=== PATIENT | female | born 1965 | race American Indian/Alaskan Native ===

== ENCOUNTER 2025-03-02 20:13 | Emergency (ER) | payer MEDICARE, SELFPAY ==
[2025-03-02 20:14] VITALS: BMI 35.7
[2025-03-02 20:33] VITALS: BP 116/73; PULSE 97; RESP 20; TEMP 38.1; O2SAT 95
--- NOTE | 2025-03-02 20:56 | EDRME_ITS ---
Rapid Medical Screening Exam [facility] Arrival date/time: 03/02/25 20:13 59F with history of DM and recent nec fasc admission presents to ED with several days of N/V and fevers/chills after she ate something. Patient denies URI symptoms. Patient wants Phenergan shot. Chief Complaint: Nausea/Vomiting/Diarrhea Vital signs: Vital Signs Temperature 100.5 F H 03/02/25 20:33 Pulse Rate 97 03/02/25 20:33 Respiratory Rate 20 03/02/25 20:33 Blood Pressure 116/73 03/02/25 20:33 Pulse Oximetry (%) 95 03/02/25 20:33 Oxygen Delivery Method Room Air 03/02/25 20:33
[2025-03-02 21:24] LABS: Lactate (Lactic Acid) 1.4 mMol/L (0.4-2.0)
[2025-03-02 21:33] LABS: Basophils # (Auto) 0.1 Thou/mm3 (0.0-0.2); Basophils % (Auto) 1 % (0-2.5); Eosinophils # (Auto) 0.5 Thou/mm3 (0.0-0.5); Eosinophils % (Auto) 4 % (0-10); Hematocrit 46.6 % (36.0-46.0); Hemoglobin 15.4 g/dL (12.0-16.0); Immature Granulocytes % (Auto) 2 % (0-0); Immature Granulocytes Auto 0.19 Thou/mm3 (0.00-0.00); Lymphocytes # (Auto) 0.9 Thou/mm3 (1.0-4.8); Lymphocytes % (Auto) 7 % (10-50); Mean Corpuscular Hemoglobin 26.1 pg (25.0-35.0); Mean Corpuscular Volume 79 fL (80-100); Monocytes # (Auto) 0.9 Thou/mm3 (0.0-0.8); Monocytes % (Auto) 7 % (0-12); Neutrophils # (Auto) 10.5 Thou/mm3 (1.8-7.7); Neutrophils % (Auto) 81 % (37-80); Nucleated Red Blood Cell % 0 /100 WBC (0); Platelet Count 369 Thou/mm3 (140-440); RDW Standard Deviation 54.5 fL (36.4-46.3)
[2025-03-02 21:44] LABS: Collection Type, Urine Clean Catch
[2025-03-02 22:00] LABS: Alanine Aminotransferase 7 U/L (10-49); Albumin, Serum 4.2 gm/dL (3.4-4.8); Albumin/Globulin Ratio 1.2 (1.2-2.2); Alkaline Phosphatase 113 U/L (46-116); Anion Gap 10 (7-16); Aspartate Amino Transferase 13 U/L (0-34); BUN/Creatinine Ratio 7 Ratio (12-20); Bilirubin,Total 1.1 mg/dL (0.3-1.2); Blood Urea Nitrogen 8 mg/dL (9-23); Calcium 9.1 mg/dL (8.3-10.6); Calcium (Corrected) 9.1 mg/dL (8.5-10.1); Chloride 103 mMol/L (98-107); Creatinine (Component) 1.1 mg/dL (0.6-1.3); Estimated Creatinine Clearance 68.7 mL/min (>60); Globulin 3.6 gm/dL (2.3-3.5); Glucose 191 mg/dL (74-106); Lipase 25 U/L (12-53); Osmolality,Calculated 275 (275-295); Potassium 3.4 mMol/L (3.4-5.1); Procalcitonin 0.13 ng/ml (0.0-0.49); Sodium 136 mMol/L (136-145); Total Protein 7.8 gm/dL (5.7-8.2); eGFR 57 See Note
[2025-03-02 22:06] LABS: Bacteria,Urine 4+; Bilirubin,Urine Negative (Negative); Blood,Urine Trace (Negative); Clarity,Urine Turbid (Clear/Hazy); Color,Urine Yellow (Lt Yel-Yel); Glucose, Urine Negative (Negative); Hyaline Casts,Urine < 1 /hpf (0-1); Ketones,Urine 1+ (Negative); Leukocyte Esterase,Urine Positive (Negative); Nitrite,Urine Positive (Negative); Protein,Urine Trace (Neg - Trace); RBC,Urine 9 /hpf (0-3); Specific Gravity,Urine 1.018 (1.001-1.035); Squamous Epithelial Cell,Urine 6 /hpf (0-5); Urobilinogen,Urine Negative mg/dL (0.0-1.0); WBC,Urine 273 /hpf (0-5)
[2025-03-02] MEDS: PROMETHAZINE INJ 25 MG/ML VIAL 12.5 MG IM (22:18)
[2025-03-02 22:21] VITALS: TEMP 38.1
[2025-03-02] MEDS: ACETAMINOPHEN 500 MG TABLET 1000 MG PO (22:21)
[2025-03-02 23:44] VITALS: BP 112/78; PULSE 86; RESP 18; TEMP 36.9; O2SAT 95
--- NOTE | 2025-03-02 23:48 | PD.EDNV ---
Nausea/Vomit./Diarrhea-RME/HPI General Chief complaint: Nausea/Vomiting/Diarrhea Stated complaint: VOMITING Arrival date/time: 03/02/25 20:13 RME / HPI RME / HPI Narrative: 03/02/25 20:13 59F with history of DM and recent nec fasc admission presents to ED with several days of N/V and fevers/chills after she ate something. Patient denies URI symptoms. Patient wants Phenergan shot. --------- Dr. Dang's Main ED Evaluation: 59yo with a history of DM presents to the ED for a chief complaint of nausea x today. Patient states she ate some jello yesterday, reporting she has since had N/V. Patient reports associated subjective fever. She requested a Phenergan shot upon arrival and now reports her symptoms have subsided. Patient denies any abdominal pain, chest pain, UTI symptoms, back pain, rashes, dysuria or any other associated symptoms. Denies any sick contacts. No known allergies. Related Data Previous Rx's ?Medication ?Instructions ?Recorded lancets 26 gauge #100 ea 11/26/23 naproxen 500 mg tablet,delayed 500 mg PO Q12H PRN pain/spasm #10 08/13/24 release (EC-Naprosyn) tabs cephalexin 500 mg capsule 500 mg PO TID #21 caps 03/02/25 Allergies Allergy/AdvReac Type Severity Reaction Status Date / Time No Known Allergies Allergy Verified 11/23/21 11:25 Review of Systems Review of Systems Systems Reviewed: All systems reviewed, normal except as documented Past Medical History Past Medical History NEUROLOGIC: Negative Neurological Disorders or Seizures CARDIAC: Negative Cardiac Disorders or Congestive Heart Failure RESPIRATORY: Negative Chronic Obstructive Pulmonary Disease (COPD) or Asthma GASTROINTESTINAL: Negative Gastrointestinal Disorders GENITOURINARY: Negative Genitourinary Disorders or Renal Disease MUSCULOSKELETAL: Positive Musculoskeletal Disorders ENDOCRINE: Positive Diabetes Mellitus Type 2; Negative Endocrine Disorders or Diabetes Mellitus Type 1 HEMATOLOGIC: Negative Blood Disorders or Sickle Cell Disease PSYCHO/SOCIAL: Positive Bipolar Disorder, Anxiety and Post Traumatic Stress Disorder OTHER HISTORY: Negative Blood Transfusions, Blood Transfusion Reaction or Anesthesia Reactions Surgical History SURGICAL: Positive Tonsillectomy and Section Social History SMOKING STATUS: Never smoker ED Exam Narrative Physical exam: General: Non-toxic, well appearing, in no acute distress, and appears stated age and well developed and well nourished. Vital signs: Normal. Head: Normocephalic and atraumatic. Eyes: Aproptotic, extraocular movements intact. Nose: Nares without evidence of rhinorrhea. Neck: Supple without menigismus without lympadenopathy. Heart: Regular rate and rhythm without murmur, gallops, or rubs. Lungs: Clear to auscultation without wheezing, rales, or rhonchi. Abdomen: Soft, non distended. No tenderness. Normal bowel sounds. Negative Storey sign and no McBurney?s point tenderness. No guarding, rebound, or rovsing. Back: No costovertebral angle tenderness. Neurological: Alert and oriented to person, place, time. Gait normal. Extremities: no cyanosis or edema. Skin: no rashes, ecchymosis, or lesions. Course Quality Measures none Orders Category Date Time Status Bedside COVID-19 Antigen Test NOW Care 03/02/25 20:43 Active Bedside Influenza A&B Antigen Test NOW Care 03/02/25 20:43 Completed CBC Stat Lab 03/02/25 21:08 Completed CMP [Comprehensive Metabolic Panel] Stat Lab 03/02/25 21:08 Completed Lactate (Lactic Acid) Stat Lab 03/02/25 21:08 Completed Lipase Stat Lab 03/02/25 21:08 Completed Procalcitonin Stat Lab 03/02/25 21:08 Completed UA [Urinalysis] Stat Lab 03/02/25 21:30 Completed Acetaminophen Tab [Tylenol ES Tab] Med 03/02/25 20:56 Discontinued 1,000 mg PO X1 ONE Promethazine Inj [Phenergan Inj] Med 03/02/25 20:56 Discontinued 12.5 mg IM X1 ONE cephALEXin [Keflex] Med 03/02/25 23:47 Discontinued 500 mg PO X1 ONE Vital Signs Vital signs: Vital Signs Temperature 100.5 F H 03/02/25 20:33 Pulse Rate 97 03/02/25 20:33 Respiratory Rate 20 03/02/25 20:33 Blood Pressure 116/73 03/02/25 20:33 Pulse Oximetry (%) 95 03/02/25 20:33 Oxygen Delivery Method Room Air 03/02/25 20:33 Nausea/Vomiting/Diarrhea MDM Narrative MDM Narrative:: Scribe Attestation: 03/02/25 - I, Queenie Rusty, am scribing for and in the presence of Dr. Dang. Patient states she feels significantly better after receiving the Phenergan shot. Labs show the patient has a UTI. Patient is stable to be discharged home on Cephalexin. Patient data External records reviewed:: [facility] previous records (Per chart review, patient was seen here on 08/13/24 for UTI.) Clinical information provided by:: patient Social determinants that could affect healthcare access:: none Patient has the following chronic illnesses:: DM How is presenting disease/condition affected by chronic disease/condition?: uneffected by Evaluation data The following diagnostics were reviewed and interpreted by me:: lab results Lab and/or radiology exams considered but not ordered:: none Interpretation Summary: Bedside Influenza is negative, WBC count is elevated at 13.0, Glucose is 191, Lipase is normal, Lactic Acid is normal, Procalcitonin is normal, UA is positive for a UTI, according to my interpretation. Medications / Prescriptions Medications / Prescriptions considered but not ordered:: none Medication administrations:: Medication Administration History Discontinued Medications Acetaminophen (Acetaminophen 500 Mg Tablet) 1,000 mg PO X1 ONE Stop: 03/02/25 20:57 Last Admin: 03/02/25 22:21 Dose: 1,000 mg Documented By: Cephalexin HCl (Cephalexin 250 Mg Capsule) 500 mg PO X1 ONE Stop: 03/02/25 23:48 Last Admin: 03/02/25 23:56 Dose: 500 mg Documented By: EF Promethazine HCl (Promethazine Inj 25 Mg/Ml Vial) 12.5 mg IM X1 ONE; Protocol Stop: 03/02/25 20:57 Last Admin: 03/02/25 22:18 Dose: 12.5 mg Documented By: see above Consultations Consultation(s) initiated? (list below): No Diagnosis Nausea Differential Diagnosis: other (UTI, pyelonephritis, viral syndrome) Most likely diagnosis given after review of the tests above:: see clinical impression below Admission Indicated Admission indicated?: not indicated Admission Request Was there a request for admission?: No Disposition Plan Disposition Plan: Discharge Discharge Attestation Discharge Attestation: The patient and all family members were given an opportunity to ask questions and understood the discharge instructions. Discharge instructions specifically effects, indications for sooner follow up or return to the emergency department, and the expected course of current diagnosis. Patient condition: Stable Discharge Plan Plan Patient Disposition: HOME (Self Care) Patient condition on transfer: Stable Prescriptions/Referrals Prescriptions/Med Rec: New cephalexin 500 mg capsule 500 mg PO TID Qty: 21 0RF No Action naproxen [EC-Naprosyn] 500 mg tablet,delayed release (DR/EC) 500 mg PO Q12H PRN (Reason: pain/spasm) Qty: 10 0RF (DME) lancets 26 gauge misc See Rx Instructions .Route Qty: 100 0RF Rx Instructions: As directed Referrals: No Primary/Family,Physician [Primary Care Provider] - In 1 week Problem List Clinical Impression: UTI (urinary tract infection), Nausea Patient/Caregiver Discharge Instructions Education Materials: ED CYSTITIS Female Adult, ED Vomiting (Adult) Additional Instructions: You can take [id number] Tylenol 650 mg 3 times a day for the next 1 to 2 days for temperature greater than 101. Please take the antibiotics as prescribed since you are having urinary tract infection. Stay hydrated with Pedialyte and Gatorade. Otherwise return to the emergency department if you are having more symptoms, any back pain, fever not improved after Tylenol, you cannot eat or drink, or any other concerns. You will need to follow-up with your primary care next 48 hours to get results of the urine culture. Print Language: Macedonian
[2025-03-02] MEDS: cephALEXin 250 MG CAPSULE 500 MG PO (23:56)
== END 2025-03-03 00:12 | disposition home or self-care (01) ==
PROVIDERS: Physician Assistant; Emergency Provider Emergency Medicine
DX: N39.0 Urinary tract infection, site not specified (principal); R11.2 Nausea with vomiting, unspecified; E11.9 Type 2 diabetes mellitus without complications
CPT/HCPCS: 36415; 80053; 81001; 83605; 83690; 84145; 85025; 87400; 87811; 96372; 99283; J2550; A9270

== ENCOUNTER 2025-03-19 10:59 | Emergency (ER) | payer MEDICARE, SELFPAY ==
[2025-03-19 11:45] VITALS: BP 123/80; PULSE 91; RESP 17; TEMP 36.8; O2SAT 97; BMI 33.6
--- NOTE | 2025-03-19 11:51 | XR_ITS ---
Examination: Foot, right, 3 views Technique: AP, oblique, lateral views foot, 3 views Date and time of exam: March 19, 2025 1214 hrs. Indications: Right foot swelling and pain beginning 2 days ago. Findings: Soft tissue swelling second digit Severe osteopenia Cortical bone destruction involving distal phalanx second digit No opaque foreign body Impression: Osteomyelitis distal phalanx second digit, consider elective MRI foot without contrast follow-up
[2025-03-19 12:18] LABS: Basophils # (Auto) 0.1 Thou/mm3 (0.0-0.2); Basophils % (Auto) 1 % (0-2.5); Eosinophils # (Auto) 0.2 Thou/mm3 (0.0-0.5); Eosinophils % (Auto) 2 % (0-10); Hemoglobin 15.1 g/dL (12.0-16.0); Immature Granulocytes % (Auto) 1 % (0-0); Immature Granulocytes Auto 0.15 Thou/mm3 (0.00-0.00); Lymphocytes # (Auto) 1.8 Thou/mm3 (1.0-4.8); Lymphocytes % (Auto) 14 % (10-50); Mean Corpuscular HGB Conc 33.6 g/dl (31.0-37.0); Mean Corpuscular Hemoglobin 26.7 pg (25.0-35.0); Mean Corpuscular Volume 80 fL (80-100); Monocytes # (Auto) 0.8 Thou/mm3 (0.0-0.8); Monocytes % (Auto) 6 % (0-12); Neutrophils % (Auto) 76 % (37-80); Nucleated Red Blood Cell % 0 /100 WBC (0); Platelet Count 445 Thou/mm3 (140-440); RDW Standard Deviation 57.2 fL (36.4-46.3); Red Blood Count 5.65 Miln/mm3 (4.00-5.20); White Blood Count 13.2 Thou/mm3 (3.6-11.0)
[2025-03-19 12:43] LABS: Alanine Aminotransferase 8 U/L (10-49); Albumin, Serum 4.3 gm/dL (3.4-4.8); Albumin/Globulin Ratio 0.9 (1.2-2.2); Alkaline Phosphatase 116 U/L (46-116); Anion Gap 10 (7-16); Aspartate Amino Transferase 15 U/L (0-34); BUN/Creatinine Ratio 10 Ratio (12-20); Bilirubin,Total 0.9 mg/dL (0.3-1.2); Blood Urea Nitrogen 10 mg/dL (9-23); C-Reactive Protein 4.6 mg/dL (0.0-0.9); Calcium 9.4 mg/dL (8.3-10.6); Calcium (Corrected) 9.4 mg/dL (8.5-10.1); Carbon Dioxide 25.5 mMol/L (20.0-31.0); Chloride 103 mMol/L (98-107); Estimated Creatinine Clearance 75.6 mL/min (>60); Globulin 4.7 gm/dL (2.3-3.5); Glucose 207 mg/dL (74-106); Osmolality,Calculated 280 (275-295); Potassium 3.9 mMol/L (3.4-5.1); Sodium 138 mMol/L (136-145); eGFR > 60 See Note
--- NOTE | 2025-03-19 15:38 | PD.EDEXREM ---
ED Extremity Problem RME/HPI General Chief complaint: Extremity Problem,Nontraumatic Stated complaint: RIGHT FOOT/LEG SWOLLEN X 5 DAYS Time Seen by Provider: 03/19/25 11:11 Arrival date/time: 03/19/25 10:59 RME / HPI RME / HPI Narrative: 59-year-old female patient with significant history of diabetes mellitus, came in for evaluation regarding right 2nd and 3rd toe chronic wound. Patient has been having worsening swelling and discoloration to the tip of the toes has been ongoing for several days getting worse for the last 5 days. Patient also complained that patient been having pain to the foot especially with ambulation for several months now. Patient denies any fever denies any other complaints. No medication was taken prior to arrival. Related Data Previous Rx's ?Medication ?Instructions ?Recorded lancets 26 gauge #100 ea 11/26/23 naproxen 500 mg tablet,delayed 500 mg PO Q12H PRN pain/spasm #10 08/13/24 release (EC-Naprosyn) tabs cephalexin 500 mg capsule 500 mg PO TID #21 caps 03/02/25 ibuprofen 800 mg tablet 800 mg PO TID PRN pain #30 tabs 03/19/25 levofloxacin 750 mg tablet 750 mg PO Q24H 10 days #10 tabs 03/19/25 pentoxifylline 400 mg 400 mg PO TID #30 tabs 03/19/25 tablet,extended release Allergies Allergy/AdvReac Type Severity Reaction Status Date / Time No Known Allergies Allergy Verified 03/19/25 11:02 Review of Systems Review of Systems Narrative Review of Systems: Review of system reviewed and within normal limits except mentioned in HPI ED Exam Narrative Physical exam: VITAL SIGNS: Reviewed. GENERAL APPEARANCE: Alert and interactive, follows commands, no acute distress, HEAD AND FACE: Non-traumatic. ENT: PERRL, pink conjunctivitis, eyelid no trauma, Mucous membrane moist. NECK: Supple, nontender, no nuchal rigidity. CHEST: No tenderness, no crepitus, no paradoxical movement, no retractions. LUNGS: Clear, well ventilated, symmetric, no rales, no wheezing, no ronchi, no stridor, good breath sounds bilaterally. HEART: Regular rate, regular rhythm, no murmur, no gallops. ABDOMEN: Soft, positive bowel sounds, nondistended, no guarding, nontender, no rebound, no masses, RECTAL: Deferred. GENITAL: Deferred. NEUROLOGICAL: Gross motor function intact sensory function intact, Appropriate for age. MUSCULOSKELETAL: low back nontender, full range of motion. EXTREMITIES: Dry gangrene noted on the right 2nd and 3rd toe with mild swelling, and no pus drainage noted, dorsalis pedis and posterior tibialis pulses nonpalpable. Full range of motion. Chronic dry ulcer noted also on the left great toe SKIN: Color pink, dry, no rash, no lacerations, no abrasions, no contusions. LYMPHATICS: Deferred. Course Quality Measures none Orders Category Date Time Status XR foot comp RT min 3V Stat Exams 03/19/25 11:51 Completed Blood Culture (Lab) Stat Lab 03/19/25 12:01 Received CBC Stat Lab 03/19/25 12:06 Completed CRP [C-Reactive Protein] Stat Lab 03/19/25 12:06 Completed Comprehensive Metabolic Panel Stat Lab 03/19/25 12:06 Completed Ketorolac Inj [Toradol Inj] Med 03/19/25 15:37 Discontinued 30 mg IM X1 ONE Levofloxacin [Levaquin] Med 03/19/25 15:37 Discontinued 750 mg PO X1 ONE Vital Signs Vital signs: Vital Signs Temperature 98.2 F 03/19/25 11:45 Pulse Rate 91 03/19/25 11:45 Respiratory Rate 17 03/19/25 11:45 Blood Pressure 123/80 03/19/25 11:45 Pulse Oximetry (%) 97 03/19/25 11:45 Oxygen Delivery Method Room Air 03/19/25 11:45 Extremity Problem MDM Narrative MDM Narrative:: 59-year-old female patient with significant history of diabetes mellitus, came in for evaluation regarding right 2nd and 3rd toe chronic wound. Patient has been having worsening swelling and discoloration to the tip of the toes has been ongoing for several days getting worse for the last 5 days. Patient also complained that patient been having pain to the foot especially with ambulation for several months now. Patient denies any fever denies any other complaints. No medication was taken prior to arrival. Patient's workup showed slight leukocytosis of 13.2 x-ray of the foot showed osteomyelitis distal phalanx second toe. Patient C-reactive protein was also noted to be slightly elevated 4.6. Me and Dr. Bernard examined the patient, who recommends that patient need to be seen by a vascular surgeon and software maintenance engineer. Patient symptoms is chronic and secondary to ischemic changes. Patient needs vascular surgery and podiatry evaluation as outpatient. Currently patient is afebrile. Patient was advised to closely monitor the progression of her toe dry gangrene and return to emergency room for worsening of symptoms. Was advised to follow-up with PCP in the morning and for referral to vascular specialist and podiatry. Patient data External records reviewed:: None Clinical information provided by:: patient Social determinants that could affect healthcare access:: none Patient has the following chronic illnesses:: Diabetes mellitus How is presenting disease/condition affected by chronic disease/condition?: exacerbated by Evaluation data The following diagnostics were reviewed and interpreted by me:: lab results and radiology exam(s) Lab and/or radiology exams considered but not ordered:: None Interpretation Summary: See results MDM none Medications / Prescriptions Medications or Prescriptions considered but not ordered:: None Medication administrations:: Medication Administration History Discontinued Medications Ketorolac Tromethamine (Ketorolac Inj 60 Mg/2 Ml Vial) 30 mg IM X1 ONE Stop: 03/19/25 15:38 Last Admin: 03/19/25 16:33 Dose: 30 mg Documented By: Levofloxacin (Levofloxacin 250 Mg Tablet) 750 mg PO X1 ONE Stop: 03/19/25 15:38 Last Admin: 03/19/25 16:31 Dose: 750 mg Documented By: Patient received Toradol IM and Levaquin p.o. Consultations Consultation(s) initiated? (list below): No Diagnosis Extremity Problem Differential Diagnosis: cellulitis and other (Diabetic toe infection, diabetic toe gangrene, peripheral arterial disease) Most likely diagnosis given after review of the tests above:: Diabetic toe infection diabetic toe gangrene peripheral artery disease Admission Indicated Admission indicated?: not indicated Admission Request Was there a request for admission?: No Disposition Plan Disposition Plan: Discharge Discharge Attestation Discharge Attestation: The patient was given an opportunity to ask questions and understood the discharge instructions. Discharge instructions specifically effects, indications for sooner follow up or return to the emergency department, and the expected course of current diagnosis. Patient condition: Stable Discharge Plan Plan Patient Disposition: HOME (Self Care) Discharge Disposition comment: Stable Prescriptions/Referrals Prescriptions/Med Rec: New levofloxacin 750 mg tablet 750 mg PO Q24H 10 Days Qty: 10 0RF pentoxifylline 400 mg tablet extended release 400 mg PO TID Qty: 30 0RF Rx Instructions: must administer with a meal/food ibuprofen 800 mg tablet 800 mg PO TID PRN (Reason: pain) Qty: 30 0RF No Action naproxen [EC-Naprosyn] 500 mg tablet,delayed release (DR/EC) 500 mg PO Q12H PRN (Reason: pain/spasm) Qty: 10 0RF cephalexin 500 mg capsule 500 mg PO TID Qty: 21 0RF (DME) lancets 26 gauge misc See Rx Instructions .Route Qty: 100 0RF Rx Instructions: As directed Referrals: Syd Ireland PA-C [Primary Care Provider] - In 1 week Problem List Clinical Impression: Diabetic infection of right foot, Ischemic ulcer diabetic foot Patient/Caregiver Discharge Instructions Discharge Activity: activity as tolerated Education Materials: ED Wound Check (Infection) Additional Instructions: Thank you for the opportunity for serving you today. You are stable for discharged . You are advised to: Follow-up with your PCP in 1 to 2 days, and ask your PCP to refer you to a vascular surgeon and podiatry Return to ED for worsening of symptoms, fever, worsening infection of the foot Elevate your foot bilateral as needed Increase oral fluids Take medication as prescribed Print Language: Welsh Stand Alone Forms: [employer] Award Info., Patient Portal Info Letter
[2025-03-19] MEDS: LEVOFLOXACIN 250 MG TABLET 750 MG PO (16:31)
[2025-03-19] MEDS: KETOROLAC INJ 60 MG/2 ML VIAL 30 MG IM (16:33)
== END 2025-03-19 16:42 | disposition home or self-care (01) ==
PROVIDERS: Nurse Practitioner Family; Emergency Provider Emergency Medicine; PCP Physician Assistant
DX: E11.621 Type 2 diabetes mellitus with foot ulcer (principal); D72.829 Elevated white blood cell count, unspecified; M86.8X7 Other osteomyelitis, ankle and foot; E11.69 Type 2 diabetes mellitus with other specified complication; E11.52 Type 2 diabetes mellitus with diabetic peripheral angiopathy with gangrene; I96 Gangrene, not elsewhere classified
CPT/HCPCS: 36415; 73630; 80053; 85025; 86140; 87040; 96372; 99283; J1885; A9270

== ENCOUNTER 2025-03-26 22:21 | Emergency (ER) | payer MEDICARE, SELFPAY ==
[2025-03-26 22:21] VITALS: BMI 34.0
[2025-03-26 23:12] VITALS: BP 132/82; PULSE 85; RESP 18; TEMP 36.9; O2SAT 96
--- NOTE | 2025-03-26 23:38 | XR_ITS ---
Examination: CTA abdominal aorta iliofemoral runoff. 2-D sagittal coronal reconstructions. 3-D reconstructions, vascular Date and time: March 27, 2025 0018 hours Comparison November 20, 2023 INDICATIONS: Abdominal pain and bilateral leg swelling today Technique: Multiple CTA images of the abdominal aorta iliofemoral runoff arterial vessels, 2.0 mm slice thickness, post intravenous administration 100 cc Isovue 370 2-D sagittal coronal reconstructions. 3-D reconstructions, vascular 3-D postprocessing, including vascular maximum intensity projection images, 3-D volume rendering Low dose protocols were performed. One or more of the following dose reduction techniques were used; automated exposure control, adjustment of the mA and/or KV according to patient size, use of iterative reconstruction technique. Findings: No focal liver or splenic lesion Absent gallbladder No pancreatic or adrenal mass Calcification 14 mm posterior margin right kidney No hydronephrosis No bowel obstruction or pericecal inflammatory change Abdominal aortic calcification no aneurysmal dilatation Common iliac and external iliac common femoral arteries intact Calcifications of the superficial femoral arteries bilaterally but no occlusions or high-grade stenoses Popliteal arteries and trifurcation vessels fill to the ankle bilaterally Moderate right knee effusion IMPRESSION: No significant obstructive arterial disease Moderate right knee effusion, septic arthritis would be included in the differential.
[2025-03-27 00:20] LABS: Basophils # (Auto) 0.1 Thou/mm3 (0.0-0.2); Basophils % (Auto) 1 % (0-2.5); Eosinophils # (Auto) 0.6 Thou/mm3 (0.0-0.5); Eosinophils % (Auto) 7 % (0-10); Hematocrit 44.7 % (36.0-46.0); Hemoglobin 14.7 g/dL (12.0-16.0); Immature Granulocytes % (Auto) 1 % (0-0); Immature Granulocytes Auto 0.05 Thou/mm3 (0.00-0.00); Lymphocytes # (Auto) 2.5 Thou/mm3 (1.0-4.8); Lymphocytes % (Auto) 26 % (10-50); Mean Corpuscular HGB Conc 32.9 g/dl (31.0-37.0); Mean Corpuscular Hemoglobin 26.9 pg (25.0-35.0); Mean Corpuscular Volume 82 fL (80-100); Monocytes # (Auto) 0.7 Thou/mm3 (0.0-0.8); Monocytes % (Auto) 8 % (0-12); Neutrophils # (Auto) 5.7 Thou/mm3 (1.8-7.7); Neutrophils % (Auto) 59 % (37-80); Nucleated Red Blood Cell % 0 /100 WBC (0); Platelet Count 357 Thou/mm3 (140-440); RDW Standard Deviation 58.9 fL (36.4-46.3); Red Blood Count 5.47 Miln/mm3 (4.00-5.20); White Blood Count 9.6 Thou/mm3 (3.6-11.0)
--- NOTE | 2025-03-27 01:05 | PC.NURSE ---
ASSUMED CARE OF PATIENT, PT ALERT/ORIENTED AND IN NO ACUTE DISTRESS, PT STATES THAT SHE WAS BIT BY A SNAKE 2 DAYS AGO AND HAS INCREASED PAIN AND SWELLING TO HER LRG. PT STATES THAT SHE HAS OTHER WOUNDS ON HER LEGS FROM POOR PERFUSION, PT WAITING TO GO TO CT, AND SEE ER ME FOR REVIEW, WILL CONTINUE WITH PLAN OF CARE
[2025-03-27 01:06] LABS: Sed Rate (ESR) 77 mm/hr (0-30)
--- NOTE | 2025-03-27 01:12 | PD.EDRME ---
Rapid Medical Screening Exam RME Arrival date/time: 03/26/25 22:21 Chief Complaint: Extremity Problem,Nontraumatic Time Seen by Provider: 03/26/25 23:24 Vital signs: Vital Signs Temperature 98.5 F 03/26/25 23:12 Pulse Rate 85 03/26/25 23:12 Respiratory Rate 18 03/26/25 23:12 Blood Pressure 132/82 H 03/26/25 23:12 Pulse Oximetry (%) 96 03/26/25 23:12 Oxygen Delivery Method Room Air 03/26/25 23:12 Vital signs reviewed by provider: Yes RME Narrative: 59-year-old female presents to the ED with a complaint of right foot pain and swelling. She believes she was bitten by a snake. She states she was in her kitchen, wearing socks, and noticed her foot hurting with a stinging sensation. She did not see a snake. She was seen here 2 weeks ago and diagnosed with a vascular issue to her right lower extremity. She has open wounds noted to her right great toe and right second toe with swelling and erythema. I have greeted and performed a focused initial assessment of this patient. A comprehensive ED assessment and evaluation of the patient, analysis of all test results, and completion of the medical decision making process will be conducted by additional ED providers.
[2025-03-27 01:14] LABS: Alanine Aminotransferase < 7 U/L (10-49); Albumin, Serum 4.2 gm/dL (3.4-4.8); Alkaline Phosphatase 103 U/L (46-116); Anion Gap 10 (7-16); Aspartate Amino Transferase 12 U/L (0-34); BUN/Creatinine Ratio 16 Ratio (12-20); Bilirubin,Total 0.3 mg/dL (0.3-1.2); Blood Urea Nitrogen 19 mg/dL (9-23); C-Reactive Protein < 0.5 mg/dL (0.0-0.9); Calcium 9.3 mg/dL (8.3-10.6); Calcium (Corrected) 9.3 mg/dL (8.5-10.1); Carbon Dioxide 25.5 mMol/L (20.0-31.0); Chloride 107 mMol/L (98-107); Creatinine (Component) 1.2 mg/dL (0.6-1.3); Estimated Creatinine Clearance 63.3 mL/min (>60); Globulin 4.4 gm/dL (2.3-3.5); Glucose 164 mg/dL (74-106); Osmolality,Calculated 289 (275-295); Sodium 142 mMol/L (136-145); Total Protein 8.6 gm/dL (5.7-8.2); eGFR 52 See Note
--- NOTE | 2025-03-27 01:20 | PC.NURSE ---
PT ALSO NOTED TO HAVE DIABETIC WOUNDS ON RIGHT FOOT, FIRST AND SECOND TOE. BACKSIDE OF BIG TOE NECROTIC, TOP OF 2 TOE OPEN WOUND WITH REDNESS AND SWELLING
[2025-03-27 01:21] VITALS: BP 130/87; PULSE 72; RESP 16; TEMP 37; O2SAT 99
[2025-03-27 03:29] VITALS: BP 140/91; PULSE 75; RESP 18; TEMP 36.9; O2SAT 96
--- NOTE | 2025-03-27 03:57 | PRELIM_ITS ---
CT angiogram of the abdomen and pelvis with bilateral lower extremities with intravenous contrast (axial sections with sagittal and coronal reformats) March 27, 2025 AT 0018 hours Clinical History: RLE Vascular compromise. Comparison: CT of March 27, 2025. Findings: The abdominal aorta demonstrates mild atheromatous calcification without evidence of dissection or aneurysm. The celiac, superior mesenteric, inferior mesenteric and bilateral renal arteries are patent to the extent visualized. The common iliac, external iliac and internal iliac arteries are patent bilaterally. The common femoral, superficial femoral, profunda femoral and popliteal arteries are normal in course and caliber. The anterior tibial, posterior tibial, peroneal and dorsalis pedis arteries are patent bilaterally. The liver, spleen, pancreas, adrenals and kidneys are unremarkable. S/p cholecystectomy. No biliary ductal dilatation. Diverticulosis of the colon. The uterus and ovaries are within normal limits. No evidence of bowel obstruction. No evidence of appendicitis. There is no significant mesenteric or retroperitoneal adenopathy. The urinary bladder is unremarkable. There is no free fluid, free air or abscess. Small complex right knee joint effusion. Moderate osteoarthritic changes of the right knee joint. Postsurgical changes in the right femur. Left García's cyst measuring 4.7 x 3.2 cm. Impression: 1. No evidence of vascular occlusion or significant stenosis. 2. Small complex right knee joint effusion. Further evaluation to assess for septic arthritis is recommended. Consider correlation with MRI. 3. Left García's cyst. Report Electronically Signed By: Hira Talley 03/27/2025 3:56:54 AM [EST]
--- NOTE | 2025-03-27 06:28 | PD.EDADULT ---
ED General RME/HPI General Chief complaint: Extremity Problem,Nontraumatic Stated complaint: RIGHT FOOT SWOLLEN Time Seen by Provider: 03/26/25 23:24 Arrival date/time: 03/26/25 22:21 Limitations: no limitations RME / HPI RME / HPI narrative: 59-year-old female presents to the ED with a complaint of right foot pain and swelling. She believes she was bitten by a snake. She states she was in her kitchen, wearing socks, and noticed her foot hurting with a stinging sensation. She did not see a snake. She was seen here 2 weeks ago and diagnosed with a vascular issue to her right lower extremity. She has open wounds noted to her right great toe and right second toe with swelling and erythema. I have greeted and performed a focused initial assessment of this patient. A comprehensive ED assessment and evaluation of the patient, analysis of all test results, and completion of the medical decision making process will be conducted by additional ED providers. DR. CLARK MAIN ED EVALUATION: 59 year old female presents to the Emergency Department with complaint of right 1st and 2nd toes pain and swelling. She states she got bit by a snake at home, but did not see the snake. She has chronic ulcerations of the right 1st and 2nd toes, associated cellulitis of both right 1st and 2nd toes. No evidence of a snake bite. Related Data Previous Rx's ?Medication ?Instructions ?Recorded lancets 26 gauge #100 ea 11/26/23 naproxen 500 mg tablet,delayed 500 mg PO Q12H PRN pain/spasm #10 08/13/24 release (EC-Naprosyn) tabs cephalexin 500 mg capsule 500 mg PO TID #21 caps 03/02/25 ibuprofen 800 mg tablet 800 mg PO TID PRN pain #30 tabs 03/19/25 levofloxacin 750 mg tablet 750 mg PO Q24H 10 days #10 tabs 03/19/25 pentoxifylline 400 mg 400 mg PO TID #30 tabs 03/19/25 tablet,extended release sulfamethoxazole 800 1 tab PO BID right second toe 03/27/25 mg-trimethoprim 160 mg tablet infection #20 tabs (Bactrim DS) Allergies Allergy/AdvReac Type Severity Reaction Status Date / Time No Known Allergies Allergy Verified 03/19/25 11:02 Review of Systems Review of Systems Systems Reviewed: All systems reviewed, normal except as documented Past Medical History Past Medical History MUSCULOSKELETAL: Positive Musculoskeletal Disorders ENDOCRINE: Positive Diabetes Mellitus Type 2 (lantus, humalog) PSYCHO/SOCIAL: Positive Bipolar Disorder, Anxiety and Post Traumatic Stress Disorder Surgical History SURGICAL: Positive Tonsillectomy and Section Social History SMOKING STATUS: Former smoker SUBSTANCE USE: does not use ALCOHOL: Never ED Exam General Limitations: Present no limitations General appearance: Present alert and in no apparent distress Head Head exam: Present atraumatic, normocephalic and normal inspection Eye Eye exam: Present normal appearance, PERRL and EOMI ENT ENT exam: Present normal exam, normal oropharynx and mucous membranes moist Neck Neck exam: Present normal inspection, full ROM and trachea midline Chest Chest inspection: Present normal inspection and symmetric chest wall rise Respiratory Respiratory exam: Present normal lung sounds bilaterally Cardiovascular Cardiovascular exam: Present regular rate, normal rhythm and normal heart sounds Abdominal Exam Abdominal exam: Present soft and normal bowel sounds Extremities Exam Extremities exam: Present normal inspection and full ROM Expanded Lower Extremity Exam Top foot image:  1. Chronic ulcerations of the right 1st toe with associated cellulitis and gangrene on the tip the right great toe. No evidence of a snake bite. 2. Chronic ulcerations of the right 2nd toe with associated cellulitis and erythema. No evidence of a snake bite. Back Exam Back exam: Present normal inspection and full ROM Neurological Exam Neurological exam: Present alert, oriented X3 and CN II-XII intact Psychiatric Psychiatric exam: Present normal affect and normal mood Skin Skin exam: Present warm, dry, intact and normal color Course Quality Measures none Orders Category Date Time Status CT Screening NOW Care 03/26/25 23:[address] Screening X1 Care 03/26/25 23:38 Active IV [Insert IV] NOW Care 03/26/25 23:[address] angio abd ilio fem runoff Stat Exams 03/26/25 23:38 Completed Blood Culture (Lab) Stat Lab 03/27/25 02:48 Received CBC Stat Lab 03/26/25 00:03 Completed CMP [Comprehensive Metabolic Panel] Stat Lab 03/26/25 00:03 Completed CRP [C-Reactive Protein] Stat Lab 03/26/25 00:03 Completed ESR [Sed Rate (ESR)] Stat Lab 03/26/25 00:03 Completed Lactic Acid [Lactate (Lactic Acid)] Stat Lab 03/27/25 02:48 Completed Vital Signs Vital signs: Vital Signs Temperature 98.5 F 03/26/25 23:12 Pulse Rate 85 03/26/25 23:12 Respiratory Rate 18 03/26/25 23:12 Blood Pressure 132/82 H 03/26/25 23:12 Pulse Oximetry (%) 96 03/26/25 23:12 Oxygen Delivery Method Room Air 03/26/25 23:12 Discharge Plan Plan Patient Disposition: HOME (Self Care) Patient condition on transfer: Stable Prescriptions/Referrals Prescriptions/Med Rec: New sulfamethoxazole-trimethoprim [Bactrim DS] 800-160 mg tablet 1 tab PO BID MDD 2 Qty: 20 0RF No Action naproxen [EC-Naprosyn] 500 mg tablet,delayed release (DR/EC) 500 mg PO Q12H PRN (Reason: pain/spasm) Qty: 10 0RF cephalexin 500 mg capsule 500 mg PO TID Qty: 21 0RF (DME) lancets 26 gauge misc See Rx Instructions .Route Qty: 100 0RF Rx Instructions: As directed levofloxacin 750 mg tablet 750 mg PO Q24H 10 Days Qty: 10 0RF pentoxifylline 400 mg tablet extended release 400 mg PO TID Qty: 30 0RF Rx Instructions: must administer with a meal/food ibuprofen 800 mg tablet 800 mg PO TID PRN (Reason: pain) Qty: 30 0RF Referrals: Nate Best [Physician] - In 1 week Syd Hyde PA-C [Primary Care Provider] - In 1 week Problem List Clinical Impression: Chronic ulcer of right great toe, Chronic ulcer of toe of right foot Patient/Caregiver Discharge Instructions Education Materials: Wound Care, ED Wound Care Additional Instructions: Follow up with the wound care. Continue taking Levaquin and take Bactrim also starting today. Elevate the right leg and bed rest. Consider lukewarm water soak bath for the right foot. Print Language: Upper Sorbian Stand Alone Forms: [employer] Award Info., Patient Portal Info Letter MDM Narrative [facility] hospital course: I, Rose Romano, am scribing for and in the presence of Dr. Clark. Patient has chronic ulcerations of the right 1st and 2nd toes, associated cellulitis of both right 1st and 2nd toes. No evidence of a snake bite. Follow up with the wound care as directed and with PCP in 2 days. Continue taking Levaquin and take Bactrim also starting today. Elevate the right leg and bed rest. Consider lukewarm water soak bath for the right foot. Clinical Information Provided by patient Medical Records Reviewed [facility] Meds/Rx Considered, not Ordered None Labs/Rad/Tests considered, not Ordered None Chronic Illness/Social Conditions Add or document further as needed: Diabetes, Bipolar Disorder, anxiety and a section. EKG EKG not done Lab Interpretation Labs: interpreted by ia Lab(s) interpretation(s): no acute findings Imaging Radiology reports / interpretation(s): Procedure(s): CT angio abd ilio fem runoff Accession Number(s): [id number] cc: Luis Loya MD; Yazmin Torres PA-C; SYD HYDE Examination: CTA abdominal aorta iliofemoral runoff. 2-D sagittal coronal reconstructions. 3-D reconstructions, vascular Date and time: March 27, 2025 0018 hours Comparison November 20, 2023 INDICATIONS: Abdominal pain and bilateral leg swelling today Technique: Multiple CTA images of the abdominal aorta iliofemoral runoff arterial vessels, 2.0 mm slice thickness, post intravenous administration 100 cc Isovue 370 2-D sagittal coronal reconstructions. 3-D reconstructions, vascular 3-D postprocessing, including vascular maximum intensity projection images, 3-D volume rendering Low dose protocols were performed. One or more of the following dose reduction techniques were used; automated exposure control, adjustment of the mA and/or KV according to patient size, use of iterative reconstruction technique. Findings: No focal liver or splenic lesion Absent gallbladder No pancreatic or adrenal mass Calcification 14 mm posterior margin right kidney No hydronephrosis No bowel obstruction or pericecal inflammatory change Abdominal aortic calcification no aneurysmal dilatation Common iliac and external iliac common femoral arteries intact Calcifications of the superficial femoral arteries bilaterally but no occlusions or high-grade stenoses Popliteal arteries and trifurcation vessels fill to the ankle bilaterally Moderate right knee effusion IMPRESSION: No significant obstructive arterial disease Moderate right knee effusion, septic arthritis would be included in the differential. Dictated By: Luis Loya MD Medication Administration(s) none Diagnosis Differential diagnosis: cellulitis, abscess, sepsis Dispositon Disposition: Discharge Home
[2025-03-27 06:53] VITALS: BP 110/79; PULSE 70; RESP 16; O2SAT 95
[2025-03-27 07:38] VITALS: BP 131/77; PULSE 65; RESP 17; TEMP 36.6; O2SAT 96
[2025-03-27 08:09] VITALS: BP 131/77; PULSE 65; O2SAT 96
== END 2025-03-27 08:10 | disposition home or self-care (01) ==
PROVIDERS: Physician Assistant; Emergency Provider Emergency Medicine; PCP Physician Assistant
DX: E11.621 Type 2 diabetes mellitus with foot ulcer (principal); L97.519 Non-pressure chronic ulcer of other part of right foot with unspecified severity; M25.461 Effusion, right knee; F31.9 Bipolar disorder, unspecified; F41.9 Anxiety disorder, unspecified; M71.22 Synovial cyst of popliteal space [Baker], left knee; R10.9 Unspecified abdominal pain
CPT/HCPCS: 36415; 75635; 80053; 83605; 85025; 85652; 86140; 87040; 99285; A4649; Q9967

== ENCOUNTER 2025-04-28 10:54 | Inpatient (IN) | payer MEDICARE, SELFPAY ==
[2025-04-28 11:22] VITALS: BP 134/80; PULSE 88; RESP 18; TEMP 37.2; O2SAT 98; BMI 33.1
--- NOTE | 2025-04-28 11:42 | EDNOTE_ITS ---
Lower Extremity Injury RME/HPI General Chief Complaint: Ankle/Foot Injury Stated Complaint: Right toe infection X 1 week Time Seen by Provider: 04/28/25 11:21 Arrival date/time: 04/28/25 10:54 Limitations: no limitations RME / HPI RME / HPI Narrative: 59-year-old female with past medical history of poorly controlled diabetes presents for evaluation of chronic right toe ulcer. Patient reports worsening swelling and purulent discharge from right great toe with spreading erythema to her midfoot. Patient was recently seen in the ED for similar concerns and treated with outpatient oral antibiotics, which she states she completed. Patient denies fever, chills, chest pain, nausea, vomiting, neck pain. She endorses right knee pain which she says describes as chronic in nature. Patient states that she has been compliant with her insulin at home. Related Data Previous Rx's ?Medication ?Instructions ?Recorded lancets 26 gauge #100 ea 11/26/23 naproxen 500 mg tablet,delayed 500 mg PO Q12H PRN pain /spasm #10 08/13/24 release (EC-Naprosyn) tabs cephalexin 500 mg capsule 500 mg PO TID #21 caps 03/02 ibuprofen 800 mg tablet 800 mg PO TID PRN pain #30 t abs 03/19/25 pentoxifylline 400 mg 400 mg PO TID #30 tabs 03/19 tablet,extended release sulfamethoxazole 800 1 tab PO BID right second to e 03/27/25 mg-trimethoprim 160 mg tablet infection #20 tabs (Bactrim DS) Allergies Allergy/AdvReac Type Severity Reaction Status Date / Time No Known Allergies Allergy Verified 04/28/25 11:00 Review of Systems Constitutional Constitutional: Denies chills, Denies excessive sweating, Denies fever(s) and Denies headache(s) Eyes Eyes: Denies blind spots and Denies blurry vision ENT Ears, Nose, Mouth, and Throat: Denies headache(s) and Denies neck pain Cardiovascular Cardiovascular: Denies chest pain, Denies dyspnea and Denies edema Respiratory Respiratory: Denies cough, Denies dyspnea, Denies hemoptysis and Denies wheezing Gastrointestinal Gastrointestinal: Denies abdominal pain, Denies nausea and Denies vomiting Genitourinary Genitourinary: Denies dysuria Musculoskeletal Musculoskeletal: Reports abnormal gait, Reports arthralgias (Right great toe.), Denies joint swelling, Denies neck pain, Denies numbness, Denies stiffness and Denies tingling Integumentary/Breasts Skin/Breast: Reports nail changes (Detached toenail right great toe.), Reports erythema, Reports non-healing lesions and Reports skin ulcer (Erythematous ulcer dorsal right great toe with purulent discharge.) Neurologic Neurologic: Reports abnormal gait, Denies confusion, Denies headache(s), Denies numbness and Denies tingling Psychiatric Psychiatric: Denies confusion Endocrine Endocrine: Denies excessive sweating Allergic/Immunologic Allergic/Immunologic: Denies wheezing Past Medical History Past Medical History NEUROLOGIC: Negative Neurological Disorders or Seizures CARDIAC: Negative Cardiac Disorders or Congestive Heart Failure RESPIRATORY: Negative Chronic Obstructive Pulmonary Disease (COPD) or Asthma GASTROINTESTINAL: Negative Gastrointestinal Disorders GENITOURINARY: Negative Genitourinary Disorders or Renal Disease MUSCULOSKELETAL: Positive Musculoskeletal Disorders ENDOCRINE: Positive Diabetes Mellitus Type 2 (lantus, humalog); Negative Endocrine Disorders or Diabetes Mellitus Type 1 HEMATOLOGIC: Negative Blood Disorders or Sickle Cell Disease PSYCHO/SOCIAL: Positive Bipolar Disorder, Anxiety and Post Traumatic Stress Disorder OTHER HISTORY: Negative Blood Transfusions, Blood Transfusion Reaction or Anesthesia Reactions Surgical History SURGICAL: Positive Tonsillectomy and Section Social History SMOKING STATUS: Former smoker SUBSTANCE USE: does not use ED Exam General Limitations: Present no limitations General appearance: Present alert and in no apparent distress Head Head exam: Present atraumatic and normocephalic Eye Eye exam: Present normal appearance and EOMI ENT ENT exam: Present mucous membranes moist and normal external ear exam Neck Neck exam: Present normal inspection and full ROM Chest Chest inspection: Present normal inspection and symmetric chest wall rise Respiratory Respiratory exam: Present normal lung sounds bilaterally; Absent respiratory distress Cardiovascular Cardiovascular exam: Present regular rate and +S1 Abdominal Exam Abdominal exam: Present soft; Absent distention Expanded Lower Extremity Exam Lower leg exam: Absent tenderness or swelling Ankle exam: Present swelling; Absent tenderness Top foot image: 2 1. Ulcerative wound with purulent discharge and surrounding erythema. Significant swelling to second digit right foot. Neurovascular/Tendon exam: Absent pulse deficit Gait: not tested/not observed Back Exam Back exam: Present normal inspection and full ROM Neurological Exam Neurological exam: Present alert Psychiatric Psychiatric exam: Present normal affect Skin Skin exam: Present warm, erythema and other (Edematous right foot with significantly swollen second digit right foot. Purulent ulcer right great toe.) Course Quality Measures none Orders Category Date Time Status Admit to Inpatient Status Routine Admission 04/28/25 15:03 Active Patient Condition Routine Admission 04/28/25 15:03 Ordered Consent [Obtain Written Consent For:] .ONCE Care 04/28/25 14:48 Active Insert IV NOW Care 04/28/25 12:42 Active Miscellaneous Nursing Order NOW Care 04/28/25 15:02 Active Notify provider NEEDED Care 04/28/25 15:03 Active XR foot comp RT min 3V Stat Exams 04/28/25 11:45 Completed Blood Culture (Lab) Stat Lab 04/28/25 12:22 Received CBC Stat Lab 04/28/25 12:22 Completed CMP [Comprehensive Metabolic Panel] Stat Lab 04/28/25 12:22 Completed CRP [C-Reactive Protein] Stat Lab 04/28/25 12:22 Completed ESR [Sed Rate (ESR)] Stat Lab 04/28/25 12:22 Completed UA, C/S IF [Urinalysis, C/S if Indicated] Stat Lab 04/28/25 13:09 Completed Urine Culture Stat Lab 04/28/25 13:09 Received Ketorolac Inj [Toradol Inj] Med 04/28/25 11:32 Discontinued 30 mg IM X1 ONE Piper/Tazo 3.375 gm Premix [Zosyn] Med 04/28/25 12:44 Discontinued 3.375 gm in 50 ml IV X1 cefTRIAXone [Rocephin] 1,000 mg Med 04/28/25 11:32 Discontinued Lidocaine 1% 20 ml [Xylocaine 1% 20 ML] 2.1 ml IM X1 Code Status Routine Oth 04/28/25 15:02 Ordered Reevaluation(s) Reevaluation #1: Paged Dr. Green for likely admission for osteomyelitis of right foot. No answer. Will call back. Time: 13:47 Reevaluation #2: DR. Green only came to evaluate the patient in the emergency department and agreed for tentative amputation of right great toe, plan for tomorrow. Is requesting admission to the hospital preoperatively. I just spoke to the hospitalist team on-call and they have kindly agreed to come to evaluate the patient in the emergency department pending admission. Time: 14:39 Vital Signs Vital signs: Vital Signs Temperature 99.0 F 04/28/25 11:22 Pulse Rate 88 04/28/25 11:22 Respiratory Rate 18 04/28/25 11:22 Blood Pressure 134/80 H 04/28/25 11:22 Pulse Oximetry (%) 98 04/28/25 11:22 Oxygen Delivery Method Room Air 04/28/25 11:22 Pulse ox 98% on room air, within normal limits. Extremity Injury, Lower MDM Narrative MDM Narrative:: 59-year-old female with poorly controlled diabetes presented with nonhealing right great toe ulcer. Workup today significant for osteomyelitis. Patient started on IV antibiotics and admitted by hospitalist team with plan for surgery in the a.m. Patient stable at time admission. Patient data External records reviewed:: [facility] previous records Clinical information provided by:: patient Social determinants that could affect healthcare access:: none Patient has the following chronic illnesses:: Diabetes. How is presenting disease/condition affected by chronic disease/condition?: c aused by Evaluation data The following diagnostics were reviewed and interpreted by me:: lab results and radiology exam(s) Lab and/or radiology exams considered but not ordered:: Workup ordered. Interpretation Summary: Osteomyelitis of right great toe and first digit right foot. Mild leukocytosis. Mild hyperglycemia. No evidence of endorgan damage or gross electrolyte abnormality. Medications / Prescriptions Medications or Prescriptions considered but not ordered:: Rx given. Medication administrations:: Medication Administration History Acetaminophen (Acetaminophen 325 Mg Tablet) 650 mg PO Q6H PRN PRN Reason: Fever >100.3 or mild pain 1-3 Stop: 05/28/25 15:42 Hydrocodone Bitart/Acetaminophen (Hydrocodone/Apap 5/325 Tablet) 1 tab PO Q6HR PRN PRN Reason: Pain 7-10 Stop: 05/03/25 15:49 Dextrose (Dextrose 50%-Water Inj 50 Ml Syringe) 25 ml IV Q15MIN PRN PRN Reason: BG 50-70 responsive npo pt Stop: 05/28/25 15:48 Dextrose (Dextrose 50%-Water Inj 50 Ml Syringe) 50 ml IV Q15MIN PRN PRN Reason: BG <50 OR BG <70 & pt unresponsive Stop: 05/28/25 15:48 Enoxaparin Sodium (Enoxaparin Sod Inj 40 Mg/0.4 Ml Syringe) 40 mg SC QDAY TRES Stop: 05/13/25 08:59 Glucagon (Glucagon Inj 1 Mg Vial) 1 mg IM Q15MIN PRN PRN Reason: BG <70, and no IV access Piperacillin Sod/Tazobactam (Sod 3.375 gm/ Sodium Chloride) 50 mls @ 12.5 mls/hr IV Q8HR TRES Stop: 05/05/25 21:59 Vancomycin HCl 1,500 mg/ (Sodium Chloride) 500 mls @ 200 mls/hr IV X1 ONE Stop: 04/28/25 18:59 Insulin Human Lispro (Insulin Lispro (Admelog) 1 Unit/0.01 Ml Unit) 0 unit SC ACHS [facility]; Protocol Stop: 05/28/25 16:59 Ondansetron HCl (Ondansetron Inj 2 Mg/Ml Inj 2 Ml) 4 mg IVP Q6H PRN; Protocol PRN Reason: NAUSEA OR VOMITING Stop: 05/28/25 15:42 Pantoprazole Sodium (Pantoprazole 40 Mg Tablet) 40 mg PO QDAY [facility] Stop: 05/29/25 08:59 Pharmacy Consult (Vancomycin Pharmacy To Dose 1 Each Each) 1 each IV QDAY [facility] Stop: 05/29/25 08:59 Sennosides (Senna Tablet) 1 tab PO QDAY [facility]; Protocol Stop: 05/29/25 08:59 Discontinued Medications Ceftriaxone Sodium 1,000 mg/ (Lidocaine HCl 2.1 ml) 0 mg IM X1 ONE Stop: 04/28/25 11:33 Last Admin: 04/28/25 11:48 Dose: Not Given Documented By: JOHN Non-Admin Reason: Cancelled by Provider Doxycycline Hyclate (Doxycycline 100 Mg Tablet) 100 mg PO BID [facility] Stop: 05/05/25 20:59 Piperacillin/Tazobactam/Dextrose (Zosyn) 3.375 gm in 50 mls @ 100 mls/hr IV X1 ONE Stop: 04/28/25 13:13 Ceftriaxone Sodium 2 gm/ (Sodium Chloride) 50 mls @ 100 mls/hr IV QDAY [facility] Stop: 05/05/25 15:46 Ketorolac Tromethamine (Ketorolac Inj 60 Mg/2 Ml Vial) 30 mg IM X1 ONE Stop: 04/28/25 11:33 Last Admin: 04/28/25 11:46 Dose: 30 mg Documented By: JOHN Rx given. Consultations Consultation(s) initiated? (list below): Yes Consultation #1 (Physician, Specialty, Details): Patient admitted by hospitalist team with plan for surgery tomorrow for osteomyelitis right foot. Diagnosis Extremity Injury, Lower Differential Diagnosis: other (Osteomyelitis, right great toe ulcer, cellulitis, soft tissue infection.) Most likely diagnosis given after review of the tests above:: Osteomyelitis, right great toe ulcer, cellulitis right foot. Admission Indicated Admission indicated?: indicated Admission Request Was there a request for admission?: Yes Admission Attestation Admission request attestation: Discussed case with resident doctor from Hospitalist service regarding admission. Discussed patients ED course, exam findings, labs, and radiology results. The Hospitalist kindly agrees to accept the patient for admission. Disposition Plan Disposition Plan: Admit Discharge Plan Plan Patient Disposition: Admit Acute Care w/in Hospital Discharge Disposition comment: stable Problem List Clinical Impression: Chronic ulcer of great toe, Osteomyelitis PA/[employer]PERATOR Supervising Physician DUKE/DULCE Supervising Physician: Dr. Nice
--- NOTE | 2025-04-28 11:45 | XR_ITS ---
Examination: Foot, right, 3 views Technique: AP, oblique, lateral views foot, 3 views Date and time of exam: April 28, 2025 1148 hours INDICATIONS: Nonhealing foot ulcer this week. FINDINGS: Prominent bone destruction entire distal phalanx first digit,. Partial destruction middle and distal phalanges second digit Soft tissue vascular calcification Severe osteopenia IMPRESSION: Osteomyelitis first and second digits, consider MRI foot without contrast follow-up
[2025-04-28] MEDS: KETOROLAC INJ 60 MG/2 ML VIAL 30 MG IM (11:46)
[2025-04-28 12:50] LABS: Basophils # (Auto) 0.1 Thou/mm3 (0.0-0.2); Basophils % (Auto) 1 % (0-2.5); Eosinophils # (Auto) 0.3 Thou/mm3 (0.0-0.5); Eosinophils % (Auto) 2 % (0-10); Hematocrit 42.0 % (36.0-46.0); Hemoglobin 14.1 g/dL (12.0-16.0); Immature Granulocytes Auto 0.09 Thou/mm3 (0.00-0.00); Lymphocytes # (Auto) 1.6 Thou/mm3 (1.0-4.8); Lymphocytes % (Auto) 12 % (10-50); Mean Corpuscular HGB Conc 33.6 g/dl (31.0-37.0); Mean Corpuscular Hemoglobin 27.3 pg (25.0-35.0); Mean Corpuscular Volume 81 fL (80-100); Monocytes # (Auto) 0.9 Thou/mm3 (0.0-0.8); Monocytes % (Auto) 7 % (0-12); Neutrophils # (Auto) 10.2 Thou/mm3 (1.8-7.7); Neutrophils % (Auto) 78 % (37-80); Nucleated Red Blood Cell # 0.00 Thou/mm3 (0.00-0.00); Nucleated Red Blood Cell % 0 /100 WBC (0); Platelet Count 593 Thou/mm3 (140-440); RDW Standard Deviation 56.3 fL (36.4-46.3); Red Blood Count 5.16 Miln/mm3 (4.00-5.20); White Blood Count 13.1 Thou/mm3 (3.6-11.0)
[2025-04-28 13:11] LABS: Sed Rate (ESR) 126 mm/hr (0-30)
[2025-04-28 13:15] LABS: Collection Type, Urine Clean Catch
[2025-04-28 13:24] LABS: Bacteria,Urine Rare; Bilirubin,Urine Negative (Negative); Blood,Urine Negative (Negative); Clarity,Urine Clear (Clear/Hazy); Color,Urine Yellow (Lt Yel-Yel); Glucose, Urine Negative (Negative); Hyaline Casts,Urine < 1 /hpf (0-1); Ketones,Urine 1+ (Negative); Leukocyte Esterase,Urine Positive (Negative); Nitrite,Urine Negative (Negative); PH,Urine 6.0 (5.0-7.0); Protein,Urine Trace (Neg - Trace); RBC,Urine 4 /hpf (0-3); Specific Gravity,Urine 1.020 (1.001-1.035); Squamous Epithelial Cell,Urine 1 /hpf (0-5); Urobilinogen,Urine 4.0 mg/dL (0.0-1.0); WBC,Urine 12 /hpf (0-5)
[2025-04-28 13:27] LABS: Culture Indicated,Urine Yes
[2025-04-28 13:27] LABS: Alanine Aminotransferase 8 U/L (10-49); Albumin, Serum 4.2 gm/dL (3.4-4.8); Albumin/Globulin Ratio 0.9 (1.2-2.2); Alkaline Phosphatase 149 U/L (46-116); Anion Gap 10 (7-16); Aspartate Amino Transferase 15 U/L (0-34); BUN/Creatinine Ratio 16 Ratio (12-20); Bilirubin,Total 0.8 mg/dL (0.3-1.2); Blood Urea Nitrogen 14 mg/dL (9-23); C-Reactive Protein 15.4 mg/dL (0.0-0.9); Calcium 9.5 mg/dL (8.3-10.6); Calcium (Corrected) 9.5 mg/dL (8.5-10.1); Carbon Dioxide 27.6 mMol/L (20.0-31.0); Chloride 96 mMol/L (98-107); Creatinine (Component) 0.9 mg/dL (0.6-1.3); Estimated Creatinine Clearance 80.7 mL/min (>60); Globulin 4.6 gm/dL (2.3-3.5); Glucose 204 mg/dL (74-106); Osmolality,Calculated 274 (275-295); Potassium 3.2 mMol/L (3.4-5.1); Sodium 134 mMol/L (136-145); Total Protein 8.8 gm/dL (5.7-8.2); eGFR > 60 See Note
--- NOTE | 2025-04-28 14:48 | PD.SURCONS ---
HPI Consult details History of present illness: 59F with DMII presenting with right great toe wound. It has been present for several weeks, pt believes it started from a bite and was then worsened after wearing boots. In recent days she has felt chills and she was seen at the [facility] where she was advised to seek care in ER for IV antibiotics PMH: DMII PSHx: I&D of gluteal nec fasc in 2023 Meds: No antiplt or anticoagulation Allergies: NKDA Social hx: Nonsmoker, pt has been walking on the toe without any assistive devices, lives with her daughter and takes care of herself Review of Systems Review of Systems ROS Unobtainable: All systems reviewed & no additional complaints except as documented Meds Home Medications and Allergies Allergies Allergy/AdvReac Type Severity Reaction Status Date / Time No Known Allergies Allergy Verified 04/28/25 11:00 Exam Vital Signs Temp Pulse Resp BP Pulse Ox O2 Del Method 99.0 F 88 18 134/80 H 98 Room Air 04/28/25 11:22 04/28/25 11:22 04/28/25 11:22 04/28/25 11:22 04/28/25 11:22 04/28/25 11:22 Constitutional Constitutional: no acute distress Routine Respiratory Exam Respiratory: Present no resp distress Routine Extremities Exam Comments: right great toe diffuse swelling, purulent drainage from posterior aspect, necrotic ulceration at the base, erythema of the dorsum of the foot extending 3cm proximally. second toe is swollen but there are no skin changes Results Results: Laboratory Laboratory results: results reviewed Results: Imaging Imaging narrative: Foot xray reviewed CTA reviewed Assessment & Plan Plan 59F with DMII presenting with osteomyelitis of the first and second R toes. The great toe does not appear salvageable based on the degree of necrosis so I recommended amputation which pt is agreeable to. I explained that she will have an open wound that will take weeks-months to heal and is at risk of secondary infection which can be mitigated with glucose control. All questions were answered and pt agrees to proceed. Because she ate a few hours ago will schedule for tomorrow AM NPO after MN for right great toe amputation tomorrow [id number]
--- NOTE | 2025-04-28 15:49 | XR_ITS ---
Examination: Arterial duplex lower extremity study. Date and time of exam: April 28, 2025, 1615 hours INDICATIONS: Nonhealing wound right toe beginning this week, diabetes history Findings: Duplex sonographic imaging of the lower extremity arteries using B-mode/[place]antana scale imaging and Doppler spectral analysis and color flow. Ankle brachial indices have been recorded. Right common femoral artery demonstrates triphasic flow. Right superficial femoral artery demonstrates triphasic flow. Right popliteal artery demonstrates triphasic flow. Right posterior tibial artery demonstrated biphasic flow. Right ankle/brachial index is 1.1. Left common femoral artery demonstrates triphasic flow. Left superficial femoral artery demonstrates biphasic flow. Left popliteal artery demonstrates biphasic flow. Left posterior tibial artery demonstrated triphasic flow. Left ankle/brachial index is 1.1. Impression: No significant obstructive arterial disease, however, as clinically warranted, CTA abdominal aorta iliofemoral runoff would best assess for trifurcation obstructive arterial disease below the knees Incidental note enlarged right groin lymph nodes, the largest 6.3 cm
[2025-04-28 16:16] LABS: Amphetamine/Methamp Scrn,U Negative (Negative); Barbiturate Screen,Urine Negative (Negative); Benzodiazepines Screen,Urine Negative (Negative); Benzoylecgonine Screen, Ur Negative (Negative); Fentanyl Screen,Urine Negative (Negative); Opiate Screen,Urine Negative (Negative); THC Screen,Urine Negative (Negative)
--- NOTE | 2025-04-28 16:16 | XR_ITS ---
Examination: Venous duplex lower extremity sonogram, bilateral. Date and time of exam: April 28, 2025 at 1632 hours INDICATIONS: Open nonhealing wound right toe several days, leg swelling and pain Technique: Multiple sonographic images of the deep venous system have been obtained. B-mode/2-D grayscale imaging of vascular structures and Doppler spectral analysis (waveforms) and color performed Both legs are examined. Findings: Deep venous systems do not demonstrate abnormal echogenicity. All visualized deep veins exhibit compressibility. All visualized deep veins exhibit augmentation. Irregular probable popliteal cyst left knee, the largest 4 cm Impression: Negative for deep vein thrombosis Soft tissue mass medial to the right knee, 2.5 x 2.5 x 2.1 cm, mass versus hematoma, consider MRI knee follow up pre and post contrast to assess the soft tissue mass
--- NOTE | 2025-04-28 16:18 | ESHP_ITS ---
<Statement entered by Filippo Dodson MD - 04/29/25 07:15> I discussed with and supervised the business analytics intern physician involved in the care of this patient. Patient assessment and plan was discussed with entire medicine team, including my attending. I agree with the assessment and plan as documented by business analytics intern doctor. Patient care was discussed with my attending physician Dr. Lacie Dodson, PGY-2 Documentation for date of: 04/28/25 HPI History of Present Illness Chief complaint: wound in Right lower extremity History of present illness: Patient is a poor historian 59-year-old female with significant past medical history of diabetes mellitus on insulin presented to the hospital with chief complaints of worsening of wound on her right lower extremity since 1 week. Patient endorsed that she had this wound since many years, almost 7 years from now and following with Doctor in the [facility]. Also endorsed that the wound got worsened with wearing boots all the time. Patient came to ED couple of weeks ago and she was given antibiotic and discharged to follow-up with the doctor on outpatient basis, patient endorsed that she completed the antibiotic course at the time. She visited her primary care provider yesterday and received a dose of ceftriaxone 2 g injection intramuscularly and she also went today and got 1 more dose but as the wound is getting worsened, patient is referred to our hospital for further treatment. Also reported that she is having swelling since 2 weeks from now on the right lower extremity but able to do her routine daily activities. Patient endorsed that she is feeling chills but no noted fevers. Denies abdominal pain, nausea, vomiting, diarrhea ED course: - Vitals at the time of admission are significant for blood pressure 134/80 mmHg - Labs are significant for WBC 13.1, ESR 126, sodium 134, potassium 3.2, chloride 96, glucose 204, CRP 15.4 - Urinalysis is positive for 4 RBC, 12 WBC. Tested negative for urine drug screen - Foot x-ray showed osteomyelitis of 1st and 2nd digits - Arterial Doppler of bilateral lower extremity is negative for PAD. Venous Doppler is negative for DVT - General Surgeon, Dr. Rojas is consulted and she recommended amputation of 1st and 2nd digits tomorrow Past medical history: Diabetes mellitus Past surgical history: Gallbladder disease Social history: Stopped taking speed, marijuana, crack 10 years ago. Denies any current addictions Allergies: NKDA Review of Systems Review of Systems Systems Reviewed: All systems reviewed, normal except as documented Exam Vital Signs Temp Pulse Resp BP Pulse Ox O2 Del Method 99.0 F 88 18 134/80 H 98 Room Air 04/28/25 11:22 04/28/25 11:22 04/28/25 11:22 04/28/25 11:22 04/28/25 11:22 04/28/25 11:22 Narrative Exam General: Awake. HEENT: Normocephalic, atraumatic, mucous membranes moist. Heart: Regular rate and rhythm, no murmurs. Lungs: Clear to auscultation with no wheezing or crackles. Abdomen: Soft, nondistended, nontender, positive bowel sounds. ?No guarding or rebound tenderness. Neurologic: Alert and oriented x3, no gross neurological deficit, and patient able to move all 4 extremities. Extremities: Noted right lower extremity edema extending up to mid calf. Noted erythema with ulceration, with yellowish discharge on 1st and 2nd toe. Erythema is extending up to mid foot on the dorsal aspect. Skin: No rash or ecchymoses. Results: Labs 04/29/25 05:28 04/29/25 05:28 Labs: Short CBC 04/28/25 Range/Units 12:22 WBC 13.1 H (3.6-11.0) Thou/mm3 Hgb 14.1 (12.0-16.0) g/dL Hct 42.0 (36.0-46.0) % Plt Count 593 H D (140-440) Thou/mm3 BMP 04/28/25 12:22 Sodium 134 L Potassium 3.2 L Chloride 96 L Carbon Dioxide 27.6 BUN 14 Creatinine 0.9 Glucose 204 H Calcium 9.5 Liver Function 04/28/25 Range/Units 12:22 Total Bilirubin 0.8 (0.3-1.2) mg/dL AST 15 (0-34) U/L ALT 8 L (10-49) U/L Alkaline Phosphatase 149 H (46-116) U/L Albumin 4.2 (3.4-4.8) gm/dL Urine 04/28/25 Range/Units 13:09 Urine Color Yellow (Lt Yel-Yel) Urine Clarity Clear (Clear/Hazy) Urine pH 6.0 (5.0-7.0) Ur Specific [place] 1.020 (1.001-1.035) Urine Protein Trace (Neg - Trace) Urine Glucose (UA) Negative (Negative) Quality Measures Quality Measures VTE prophylaxis Medications Home Medications and Allergies Home Medications ?Medication ?Instructions ?Recorded ?Confirmed ?Type insulin glargine 100 unit/mL (3 15 unit subcut DAILY 0 04/28/25 04/28/25 History mL) subcutaneous pen (Lantus Solostar U-100 Insulin) insulin lispro 100 unit/mL 2 unit subcut TID 04/28/25 04/28/25 History subcutaneous pen (Humalog KwikPen (U-100) Insulin) Allergies Allergy/AdvReac Type Severity Reaction Status Date / Time No Known Allergies Allergy Verified 04/29/25 08:39 Visit Medications Acetaminophen (Acetaminophen 325 Mg Tablet) 650 mg PO Q6H PRN PRN Reason: Fever >100.3 or mild pain 1-3 Stop: 05/28/25 15:42 Hydrocodone Bitart/Acetaminophen (Hydrocodone/Apap 5/325 Tablet) 1 tab PO Q6HR PRN PRN Reason: Pain 7-10 Stop: 05/03/25 15:49 Dextrose (Dextrose 50%-Water Inj 50 Ml Syringe) 25 ml IV Q15MIN PRN PRN Reason: BG 50-70 responsive npo pt Stop: 05/28/25 15:48 Dextrose (Dextrose 50%-Water Inj 50 Ml Syringe) 50 ml IV Q15MIN PRN PRN Reason: BG <50 OR BG <70 & pt unresponsive Stop: 05/28/25 15:48 Enoxaparin Sodium (Enoxaparin Sod Inj 40 Mg/0.4 Ml Syringe) 40 mg SC QDAY TRES Stop: 05/13/25 08:59 Glucagon (Glucagon Inj 1 Mg Vial) 1 mg IM Q15MIN PRN PRN Reason: BG <70, and no IV access Piperacillin Sod/Tazobactam (Sod 3.375 gm/ Sodium Chloride) 100 mls @ 200 mls/hr IV Q8HR TRES Stop: 05/05/25 21:59 Vancomycin HCl 1,000 mg/ (Sodium Chloride) 250 mls @ 150 mls/hr IV X1 ONE Stop: 04/28/25 17:56 Insulin Human Lispro (Insulin Lispro (Admelog) 1 Unit/0.01 Ml Unit) 0 unit SC ACHS TRES; Protocol Stop: 05/28/25 16:59 Ondansetron HCl (Ondansetron Inj 2 Mg/Ml Inj 2 Ml) 4 mg IVP Q6H PRN; Protocol PRN Reason: NAUSEA OR VOMITING Stop: 05/28/25 15:42 Pantoprazole Sodium (Pantoprazole 40 Mg Tablet) 40 mg PO QDAY [facility] Stop: 05/29/25 08:59 Pharmacy Consult (Vancomycin Pharmacy To Dose 1 Each Each) 1 each IV QDAY TRES Stop: 05/29/25 08:59 Sennosides (Senna Tablet) 1 tab PO QDAY [facility]; Protocol Stop: 05/29/25 08:59 Discontinued Medications Ceftriaxone Sodium 1,000 mg/ (Lidocaine HCl 2.1 ml) 0 mg IM X1 ONE Stop: 04/28/25 11:33 Last Admin: 04/28/25 11:48 Dose: Not Given Doxycycline Hyclate (Doxycycline 100 Mg Tablet) 100 mg PO BID [facility] Stop: 05/05/25 20:59 Piperacillin/Tazobactam/Dextrose (Zosyn) 3.375 gm in 50 mls @ 100 mls/hr IV X1 ONE Stop: 04/28/25 13:13 Vancomycin HCl 500 mg/ Sodium (Chloride) 100 mls @ 100 mls/hr IV X1 ONE Stop: 04/28/25 14:45 Ceftriaxone Sodium 2 gm/ (Sodium Chloride) 50 mls @ 100 mls/hr IV QDAY TRES Stop: 05/05/25 15:46 Ketorolac Tromethamine (Ketorolac Inj 60 Mg/2 Ml Vial) 30 mg IM X1 ONE Stop: 04/28/25 11:33 Last Admin: 04/28/25 11:46 Dose: 30 mg Assessment & Plan Plan 59-year-old female with significant past medical history of diabetes mellitus on insulin presented to the hospital with chief complaints of worsening of wound on her right lower extremity since 1 week and admitted for osteomyelitis of 1st and 2nd digits of right foot. 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 Reported that she received 2 doses of ceftriaxone - On physical examination, noted erythema extending up to mid foot on dorsal aspect and necrosis, yellowish discharge on 1st and 2nd digits of right foot - Vitals at the time of admission are significant for blood pressure 134/80 mmHg - Labs are significant for WBC 13.1, ESR 126, sodium 134, potassium 3.2, chloride 96, glucose 204, CRP 15.4 - Urinalysis is positive for 4 RBC, 12 WBC. Tested negative for urine drug screen - Foot x-ray showed osteomyelitis of 1st and 2nd digits - Arterial Doppler of bilateral lower extremity is negative for PAD. Venous Doppler is negative for DVT Plan - General Surgeon, Dr. Rojas is consulted and she recommended amputation of 1st and 2nd digits tomorrow - N.p.o. since midnight - Started on vancomycin and Zosyn in view of underlying diabetes mellitus [04/28- - Consulted Dr Lopez, will appreciate his recommendations - Wound care is ordered - Will strictly control her blood sugars # Diabetes mellitus, insulin-dependent - A1c in November 2023 is 12.2 - Repeat HbA1c is ordered - Patient reported that she is using insulin sliding scale and 15 units of insulin during night Plan - Patient is placed on insulin sliding scale - Will start Lantus based on morning blood sugars # Hypokalemia - Potassium at the time of admission is 3.2 Plan - Patient was given 40 mg of oral potassium - Will continue to monitor her lites and replete as needed Hospital Maintenance: Dispo: medsurg DVT ppx: lovenox GI ppx: protonix Diet: carb consistent, NPO since midnight IV lines: Peripheral Code status: Full Patient plan of care was discussed with the attending physician, Dr. Medellin and senior resident Dr. Ivory Yanes, PGY1 Attending Provider Attestation/Addendum Sofi, Teresita Medellin, , attest that I was physically present for the avitia portions of the service and evaluated the patient with the resident and I reviewed and discussed the case with the resident and agree with the resident's findings and plans of care as documented above Patient is a 59-year-old female with past medical history of type 2 insulin- dependent diabetes mellitus presented to the ED with worsening swelling of her right great toe after she had sustained a bite. Patient was given antibiotics in the outpatient setting with IM Rocephin. Patient also states that she had tried to soak her foot and clean it with warm Epsom salt water. However, she noted worsening swelling and drainage from her great toe prompting her to come to the ED. Patient's right big toe is very edematous with large opening in the proximal phalanx with purulent discharge. Great toe is discolored with white and black discoloration and cellulitis changes and surrounding area extending to the second digit. Patient also has edema ascending to her right calf and tenderness to palpation. General surgery was called from ED due to extent of infection of her right big toe. Foot x-ray was done in the ED showing osteomyelitis of the 1st and 2nd digits. ESR was noted to be elevated at 126 and patient with leukocytosis of 13.1. She endorsed having chills but denied any fevers. [place] [place] and medical management of osteomyelitis and cellulitis of 1st and 2nd digits of right foot. Will start patient on vancomycin and Zosyn. Will have ID further provide antibiotic recommendations. Patient is to be n.p.o. after midnight fo in anticipation of amputation of right big toe in AM.
[2025-04-28] MEDS: PIPER/TAZO 3.375 GM PREMIX 3.375 GM/50 ML BAG IV (17:49)
[2025-04-28] MEDS: INSULIN LISPRO (AdmeLOG) 1 UNIT/0.01 ML UNIT SC ×2 (17:57→22:01)
[2025-04-28] MEDS: Vancomycin Inj 1,500 MG in SODIUM CHLORIDE 0.9% 500 ML 500 ML 200 MG IV (18:17)
[2025-04-28 18:51] VITALS: BP 150/102; PULSE 85; RESP 14; TEMP 36.8; O2SAT 97
[2025-04-28 19:44] VITALS: BP 148/86; PULSE 80; RESP 15; TEMP 36.8; O2SAT 97
[2025-04-28 20:45] VITALS: BMI 33.7
[2025-04-28] MEDS: PIPER/TAZO INJ 3.375 GM in SODIUM CHLORIDE 0.9% (Popper) 50 ML IV (21:45)
[2025-04-28] MEDS: HYDROcodone/APAP 5/325 TABLET 1 TAB PO (22:00)
[2025-04-29] VITALS (11 sets, daily range): BP systolic 97–142; BP diastolic 54–88; PULSE 66–78; RESP 14–19; TEMP 36.1–36.5; O2SAT 95–99; BMI 33.6
[2025-04-29] MEDS: PIPER/TAZO INJ 3.375 GM in SODIUM CHLORIDE 0.9% (Popper) 50 ML IV (05:23)
[2025-04-29 05:52] LABS: Basophils # (Auto) 0.1 Thou/mm3 (0.0-0.2); Basophils % (Auto) 1 % (0-2.5); Eosinophils # (Auto) 0.4 Thou/mm3 (0.0-0.5); Eosinophils % (Auto) 4 % (0-10); Hematocrit 37.7 % (36.0-46.0); Hemoglobin 12.3 g/dL (12.0-16.0); Immature Granulocytes Auto 0.09 Thou/mm3 (0.00-0.00); Lymphocytes # (Auto) 1.6 Thou/mm3 (1.0-4.8); Lymphocytes % (Auto) 17 % (10-50); Mean Corpuscular HGB Conc 32.6 g/dl (31.0-37.0); Mean Corpuscular Hemoglobin 27.2 pg (25.0-35.0); Mean Corpuscular Volume 83 fL (80-100); Monocytes # (Auto) 0.8 Thou/mm3 (0.0-0.8); Monocytes % (Auto) 9 % (0-12); Neutrophils # (Auto) 6.6 Thou/mm3 (1.8-7.7); Neutrophils % (Auto) 69 % (37-80); Nucleated Red Blood Cell # 0.00 Thou/mm3 (0.00-0.00); Nucleated Red Blood Cell % 0 /100 WBC (0); Platelet Count 476 Thou/mm3 (140-440); RDW Standard Deviation 57.5 fL (36.4-46.3); Red Blood Count 4.52 Miln/mm3 (4.00-5.20); White Blood Count 9.5 Thou/mm3 (3.6-11.0)
[2025-04-29 06:23] LABS: Glucose Estimated Average 169 mg/dL (80-131); Hemoglobin A1C 7.5 % Hgb (4.8-6.0)
[2025-04-29 06:31] LABS: Alanine Aminotransferase 7 U/L (10-49); Albumin, Serum 3.3 gm/dL (3.4-4.8); Albumin/Globulin Ratio 0.8 (1.2-2.2); Alkaline Phosphatase 125 U/L (46-116); Anion Gap 8 (7-16); Aspartate Amino Transferase 10 U/L (0-34); BUN/Creatinine Ratio 16 Ratio (12-20); Bilirubin,Total 0.4 mg/dL (0.3-1.2); Blood Urea Nitrogen 13 mg/dL (9-23); Calcium 8.7 mg/dL (8.3-10.6); Calcium (Corrected) 9.3 mg/dL (8.5-10.1); Carbon Dioxide 25.7 mMol/L (20.0-31.0); Cardiac Risk Estimate 5.5 RATIO (3.7-5.6); Chloride 103 mMol/L (98-107); Cholesterol 94 mg/dL (132-200); Creatinine (Component) 0.8 mg/dL (0.6-1.3); Estimated Creatinine Clearance 91.7 mL/min (>60); Globulin 4.0 gm/dL (2.3-3.5); Glucose 221 mg/dL (74-106); HDL Cholesterol 17 mg/dL (40-60); LDL Cholesterol,Calculated 54 mg/dL (0-130); Magnesium 1.8 mg/dL (1.6-2.6); Osmolality,Calculated 280 (275-295); Potassium 3.3 mMol/L (3.4-5.1); Sodium 137 mMol/L (136-145); Thyroid Stimulating Hormone 2.08 uIU/mL (0.55-4.78); Total Protein 7.3 gm/dL (5.7-8.2); Triglycerides 116 mg/dL (30-150); eGFR > 60 See Note
--- NOTE | 2025-04-29 08:19 | ESOP_ITS ---
Date of Procedure 04/29/25 Pre Op Diagnosis Right great toe osteomyelitis with necrotic skin Post Op Diagnosis Same Procedure Amputation of right great toe Findings Necrotic right first toe with ulceration and pus Procedure Description After discussion of risks and benefits, patient was brought to the operating room and MAC anesthesia was induced. She underwent a nerve block and was prepped and draped in the usual sterile fashion. She had already received antibiotics this morning. Patient was prepped and draped in usual sterile fashi on. After timeout the base of the toe was transected using electrocautery. When the proximal phalanx was reached it was transected with a bone cutter and the edges were smoothed with a smoothing device. Wound was irrigated with Betadine peroxide solution and hemostasis was achieved with electrocautery. It hemostasis was reinforced with Surgicel and the wound was covered with Adaptic, fluffs and Kerlix. Patient was awoken and brought to PACU in stable condition Pathology / specimen Other (Wound culture, toe) Estimated Blood Loss 20 Surgeon Jolie Green MD Surgical Staff Operation Date: 04/29/25 07:30 <No data on this case meets the specified criteria>
--- NOTE | 2025-04-29 08:23 | SUR.PHASEI ---
0817 Patient arrived to recovery resting comfortably in [facility], drowsy and able to arouse with verbal prompting, on oxygen 8L via oxy mask, breathing unlabored, vital signs stable, denies pain, dressing intact to right foot; sutures, adaptic, kerlix roll and silk tape, no bleeding noted, report received from Dk JENKINS and Yusef JENKINS
--- NOTE | 2025-04-29 09:24 | SUR.PHASEI ---
901 Report given to Gena JENKINS, patient meets discharge criteria from recovery, awake and talking with this documentation writer, on oxygen 2L via nasal cannula, breathing unlabored, vital signs stable, denies pain, dressing intact; no bleeding noted, eating ice chips; denies nausea 923 Patient transported via gurney, patient able to transfer herself for gurney to bed, patient resting comfortably in bed with call light in reach, Gena JENKINS and Genna JENKINS both arrived to patient room prior to this documentation writer leaving patient room
--- NOTE | 2025-04-29 09:31 | ESPR_ITS ---
Subjective Subjective Interval history: osteo with gangrene. amputated. bc pending toe amputated by surgery. prior arterial study in march neg for significant pvd though Exam Vital Signs Temp Pulse Resp BP Pulse Ox O2 Del Method O2 Flow Rate 97.3 F 67 15 111/69 97 Room Air 2 04/29/25 08:53 04/29/25 08:53 04/29/25 08:53 04/29/25 08:53 04/29/25 08:53 04/29/25 04:00 04/29/25 08:38 Narrative Exam benign hx . RT foot wrapped. toe off. no proximal spread noted so far. On o2 but may have been started for comfort so may be weaned off soon too Objective - Internal Medicine Labs 04/29/25 05:28 04/29/25 05:28 Labs: Laboratory Results - last 24 hr 04/28/25 04/28/25 04/29/25 12:22 13:09 05:28 WBC 13.1 H 9.5 RBC 5.16 4.52 Hgb 14.1 12.3 Hct 42.0 37.7 MCV 81 83 MCH 27.3 27.2 MCHC 33.6 32.6 RDW Std Deviation 56.3 H 57.5 H Plt Count 593 H D 476 H D Neut % (Auto) 78 69 Lymph % (Auto) 12 17 [place] % (Auto) 7 9 Eos % (Auto) 2 4 Baso % (Auto) 1 1 Neut # (Auto) 10.2 H 6.6 Lymph # (Auto) 1.6 1.6 [place] # (Auto) 0.9 H 0.8 Eos # (Auto) 0.3 0.4 Baso # (Auto) 0.1 0.1 Immature Gran # (Auto) 0.09 H 0.09 H Absolute Nucleated RBC 0.00 0.00 Immature Gran % 1 H 1 H Nucleated RBC % 0 0 ESR 126 H Sodium 134 L 137 Potassium 3.2 L 3.3 L Chloride 96 L 103 Carbon Dioxide 27.6 25.7 Anion Gap 10 8 BUN 14 13 Creatinine 0.9 0.8 Estim Creat Clear Calc 80.7 91.7 eGFR > 60 > 60 BUN/Creatinine Ratio 16 16 Glucose [address] Glu mg/dL 169 H Hemoglobin A1c 7.5 H Calculated Osmolality 274 L 280 Calcium 9.5 8.7 Corrected Calcium 9.5 9.3 Magnesium 1.8 Total Bilirubin 0.8 0.4 AST 15 10 ALT 8 L 7 L Alkaline Phosphatase 149 H 125 H D C-Reactive Prot, Quant 15.4 H Total Protein 8.8 H 7.3 Albumin 4.2 3.3 L D Globulin 4.6 H 4.0 H Albumin/Globulin Ratio 0.9 L 0.8 L Triglycerides 116 Cholesterol 94 L LDL Cholesterol, Calc 54 HDL Cholesterol 17 L Cholesterol/HDL Ratio 5.5 TSH 2.08 Ur Collection Type Clean Catch Urine Color Yellow Urine Clarity Clear Urine pH 6.0 Ur Specific [place] 1.020 Urine Protein Trace Urine Glucose (UA) Negative Urine Ketones 1+ A Urine Blood Negative Urine Nitrite Negative Urine Bilirubin Negative Urine Urobilinogen (Auto) 4.0 Ur Leukocyte Esterase Positive Urine RBC 4 H Urine WBC 12 H Ur Squamous Epith Cells 1 Urine Bacteria Rare Hyaline Casts < 1 Ur Culture Indicated? Yes Urine Opiates Screen Negative Urine Fentanyl Screen Negative Ur Barbiturates Screen Negative U Amphetamin/Meth Scrn Negative U Benzodiazepines Scrn Negative U Cocaine Metab Screen Negative U Marijuana (THC) Screen Negative Assessment & Plan A&P Narrative osteo of toe dm II probable pvd but neg arterial study in march of this year, just a month ago if bc neg at 48h, then po regimen of keflex 1000 mg po tid ok for her for 3 days after the 48hr if bc pos, I will see friday if still here then. return to prior place of residence on Friday if bc neg (they likely will be as she was afebrile on arrival and subsequently) Time Spent With Patient Time: Total time spent is greater than 50% in coordination of care (as documented) at patient's floor/unit and/or counseling patient:
[2025-04-29 09:43] LABS: HIV (1&2) Antibody Rapid Non-Reactive
[2025-04-29] MEDS: VANCOMYCIN/WATER 1250 MG IVPB 250 ML 120 MG IV ×2 (09:49→22:23)
[2025-04-29] MEDS: PANTOPRAZOLE 40 MG TABLET PO (09:49)
[2025-04-29 10:12] LABS: Hepatitis A Antibody IgM Non Reactive (Non React); Hepatitis B Core Antibody IgM Non Reactive (Non React); Hepatitis B Surface Antigen Non Reactive (Non React); Hepatitis C Antibody Non Reactive (Non React)
--- NOTE | 2025-04-29 10:34 | CHAP ---
Patient was visited by the Spiritual Care Volunteer who prayed for them. (Volunteer was in the hospital from 09:30-10:34).
[2025-04-29] MEDS: INSULIN LISPRO (AdmeLOG) 1 UNIT/0.01 ML UNIT SC ×3 (11:54→20:16)
[2025-04-29] MEDS: PIPER/TAZO 3.375 GM PREMIX 3.375 GM/50 ML BAG IV ×2 (13:37→22:23)
--- NOTE | 2025-04-29 13:43 | ESCONSULT_ITS ---
RE: KALEIGH NAVARRO : 1965 DATE OF CONSULTATION: 04/29/2025 REFERRING PHYSICIAN: Dr. Medellin, Hospitalist. REASON FOR CONSULTATION: Osteomyelitis of the right great toe. HISTORY OF PRESENT ILLNESS: Gangrene of her right great toe, amputated, and notably had a negative arterial study just a month ago. Usually, amputation implies circulatory compromise, but apparently there was none noted on the studies just previously, a month prior. This suggests more of a focal process. Her A1c is also better than it has been at 7.5. It has been as high as 11.7-12.2 a couple of years ago. She reports some other medical problems. PAST SURGICAL HISTORY: Surgeries include prior cholecystectomy laparoscopically and surgery about 12/2023 and recent right great toe surgery by Dr. Green on 04/29/2025, this morning. ALLERGIES: NONE NOTED. IMMUNIZATIONS: Last tetanus is not known. She has not had flu shot every year. She has had 2 COVID vaccines and has not had pneumococcal vaccine. SOCIAL HISTORY: She lives with male relative and her 1 child. She is a former smoker and quit 10 years ago. She used drugs as well, but quit that also 10 years ago. She is notably HIV negative and hepatitis C negative. FAMILY HISTORY: Positive for diabetes and great toe ulcer. PHYSICAL EXAMINATION: On exam, the patient is alert and cooperative. She is on oxygen, but it is being weaned and could be off in the near future. This may have been started for comfort. The rest of her exam is notable for right great toe being covered with wrappings. Wrappings were JUST placed, so I did not remove them. Her pulses are grossly intact, but I was not able to palpate her right foot because of the dressings. There is no strike through on the dressings, which was quitethick. The patient hasnot yet tried to ambulate. ASSESSMENT: Osteomyelitis of right great toe, amputated. RECOMMENDATIONS: We need to wait on the blood sugars for 48 hours. By Friday about , she has negative blood sugars, she may return to home on oral Keflex. In the meantime, we can leave her on her current treatment or you can anticipate a possible discharge and transition to Rocephin 2 g daily IV and p.o. doxycycline 100 mg b.i.d. I will check on her Friday if she is still here, but if she goes home on Friday because blood cultures are negative, that would be fine. primary team states that there is osteo of adjacent toe but no gangrene, so, even with limited success, ok to treat with 6 weeks of rocephin 2 gm iv daily and po doxy 100 bid from the date of surgery, with weekly cbc, renal panel, esr and line removal at end of rx. I can not see her in f/u. see outpt primary for f/u DT: 10:29:55 TT: 11:58:00 Ref: [id number] - TID: [id number] MTDD
--- NOTE | 2025-04-29 16:00 | CHAP ---
Patient was visited by the Spiritual Care Volunteer who prayed for them. (Volunteer was in the hospital from 14:00-17:00).
[2025-04-29] MEDS: HYDROcodone/APAP 5/325 TABLET 1 TAB PO (17:34)
--- NOTE | 2025-04-29 17:55 | ESPR_ITS ---
<Statement entered by Kym Armenta MD - 05/02/25 15:37> I Kym Armenta MD reviewed the note and agree with the resident's assessment & plan with exceptions as below. I have personally reviewed labs, imaging, home meds/prior records, examined the patient, formulated and discussed management plan with the IM team. A 59-year-old female admitted for osteomyelitis of multiple toes, plan for amputation by surgery today. Continue IV fluids, empiric antibiotic coverage with vancomycin and Zosyn. <Statement entered by Filippo Dodson MD - 04/29/25 18:40> I discussed with and supervised the research program internship physician involved in the care of this patient. Patient assessment and plan was discussed with entire medicine team, including my attending. I agree with the assessment and plan as documented by research program internship doctor. Patient care was discussed with my attending physician Dr. Geovany Dodson, PGY-2 Documentation for date of: 04/29/25 Subjective Subjective Interval history: Patient is seen and examined at the bedside Patient underwent first toe amputation by Dr. Green this morning and the procedure was uneventful Patient was seen after the procedure and she denies any other complaints, except for mild at the site of surgery On physical examination, entered foot is wrapped and dressing Vitals are stable. Labs showed potassium 3.3, supplemented with 30 mg of oral potassium Dr. Delaney is consulted and he recommended Keflex for 3 days. Will appreciate his recommendations Will discharge tomorrow if the patient is clinically stable Exam Vital Signs Temp Pulse Resp BP Pulse Ox O2 Del Method O2 Flow Rate 97.1 F 73 19 142/88 H 95 Room Air 2 04/29/25 12:04/29/25 12:04/29/25 12:04/29/25 12:04/29/25 12:04/29/25 04:00 04/29/25 09:08 Narrative Exam General: Awake. HEENT: Normocephalic, atraumatic, mucous membranes moist. Heart: Regular rate and rhythm, no murmurs. Lungs: Clear to auscultation with no wheezing or crackles. Abdomen: Soft, nondistended, nontender, positive bowel sounds. ?No guarding or rebound tenderness. Neurologic: Alert and oriented x3, no gross neurological deficit, and patient able to move all 4 extremities. Extremities: Right foot is wrapped in dressing Skin: No rash or ecchymoses. Objective Labs 04/29/25 05:28 04/29/25 05:28 Labs: Laboratory Results - last 24 hr 04/29/25 04/29/25 04:39 05:28 WBC 9.5 RBC 4.52 Hgb 12.3 Hct 37.7 MCV 83 MCH 27.2 MCHC 32.6 RDW Std Deviation 57.5 H Plt Count 476 H D Neut % (Auto) 69 Lymph % (Auto) 17 [place] % (Auto) 9 Eos % (Auto) 4 Baso % (Auto) 1 Neut # (Auto) 6.6 Lymph # (Auto) 1.6 [place] # (Auto) 0.8 Eos # (Auto) 0.4 Baso # (Auto) 0.1 Immature Gran # (Auto) 0.09 H Absolute Nucleated RBC 0.00 Immature Gran % 1 H Nucleated RBC % 0 Sodium 137 Potassium 3.3 L Chloride 103 Carbon Dioxide 25.7 Anion Gap 8 BUN 13 Creatinine 0.8 Estim Creat Clear Calc 91.7 eGFR > 60 BUN/Creatinine Ratio [address] Glu mg/dL 169 H Hemoglobin A1c 7.5 H Calculated Osmolality 280 Calcium 8.7 Corrected Calcium 9.3 Magnesium 1.8 Total Bilirubin 0.4 AST 10 ALT 7 L Alkaline Phosphatase 125 H D Total Protein 7.3 Albumin 3.3 L D Globulin 4.0 H Albumin/Globulin Ratio 0.8 L Triglycerides 116 Cholesterol 94 L LDL Cholesterol, Calc 54 HDL Cholesterol 17 L Cholesterol/HDL Ratio 5.5 TSH 2.08 Hepatitis A IgM Ab Non Reactive Hep Bs Antigen Non Reactive Hep B Core IgM Ab Non Reactive Hepatitis C Antibody Non Reactive HIV 1&2 Antibody Rapid Non-Reactive Quality Measures Quality Measures VTE prophylaxis Assessment & Plan Assessment Current Active Medications: Generic Name Dose Route Start Last Admin Trade Name Freq PRN Reason Stop Dose Admin Acetaminophen 650 mg 04/28/25 15:43 Acetaminophen 325 Mg Tablet PO 05/28/25 15:42 Q6H PRN Fever >100.3 or mild pain 1-3 Hydrocodone Bitart/Acetaminophen 1 tab 04/28/25 15:50 04/29/25 17:34 Hydrocodone/Apap 5/325 Tablet PO 05/03/25 15:49 1 tab Q6HR PRN Administration Pain 7-10 Dextrose 25 ml 04/28/25 15:49 Dextrose 50%-Water Inj 50 Ml Syringe IV 05/28/25 15:48 Q15MIN PRN BG 50-70 responsive npo pt Dextrose 50 ml 04/28/25 15:49 Dextrose 50%-Water Inj 50 Ml Syringe IV 05/28/25 15:48 Q15MIN PRN BG <50 OR BG <70 & pt unresponsive Enoxaparin Sodium 40 mg 04/29/25 09:00 04/29/25 08:19 Enoxaparin Sod Inj 40 Mg/0.4 Ml Syringe SC 05/13/25 08:59 Not Given QDAY TRES Glucagon 1 mg 04/28/25 15:49 Glucagon Inj 1 Mg Vial IM Q15MIN PRN BG <70, and no IV access Vancomycin HCl 250 mls @ 120 mls/hr 04/29/25 10:00 04/29/25 09:49 Vancomycin/Water 1250 Mg Ivpb IV 05/06/25 09:59 120 mls/hr Q12H TRES Administration Protocol Piperacillin/Tazobactam/Dextrose 3.375 gm in 50 mls @ 12.5 mls/hr 04/29/25 14:00 04/29/25 13:37 Zosyn IV 05/05/25 21:59 12.5 mls/hr Q8HR TRES Administration Insulin Glargine 10 unit 04/29/25 21:00 Insulin Glargine (Lantus) 5 Unit/0.05 Ml (Per 5 Units) SC 05/29/25 20:59 HS TRES Insulin Human Lispro 0 unit 04/28/25 17:00 04/29/25 17:28 Insulin Lispro (Admelog) 1 Unit/0.01 Ml Unit SC 05/28/25 16:59 1 unit ACHS TRES Administration Protocol Ondansetron HCl 4 mg 04/28/25 15:43 Ondansetron Inj 2 Mg/Ml Inj 2 Ml IVP 05/28/25 15:42 Q6H PRN NAUSEA OR VOMITING Protocol Pantoprazole Sodium 40 mg 04/29/25 09:00 04/29/25 09:49 Pantoprazole 40 Mg Tablet PO 05/29/25 08:59 40 mg QDAY TRES Administration Pharmacy Consult 1 each 04/29/25 09:00 04/29/25 09:48 Vancomycin Pharmacy To Dose 1 Each Each IV 05/29/25 08:59 Not Given QDAY [facility] Sennosides 1 tab 04/29/25 09:00 04/29/25 09:48 Senna Tablet PO 05/29/25 08:59 1 tab QDAY [facility] Administration Protocol Plan 59-year-old female with significant past medical history of diabetes mellitus on insulin presented to the hospital with chief complaints of worsening of wound on her right lower extremity since 1 week and admitted for osteomyelitis of 1st and 2nd digits of right foot. 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 Reported that she received 2 doses of ceftriaxone - On physical examination, noted erythema extending up to mid foot on dorsal aspect and necrosis, yellowish discharge on 1st and 2nd digits of right foot - Vitals at the time of admission are significant for blood pressure 134/80 mmHg - Labs are significant for WBC 13.1, ESR 126, sodium 134, potassium 3.2, chloride 96, glucose 204, CRP 15.4 - Urinalysis is positive for 4 RBC, 12 WBC. Tested negative for urine drug screen - Foot x-ray showed osteomyelitis of 1st and 2nd digits - Arterial Doppler of bilateral lower extremity is negative for PAD. Venous Doppler is negative for DVT Plan - General Surgeon, Dr. Rojas is consulted and patient underwent amputation of 1st toe of right foot - Started on vancomycin and Zosyn in view of underlying diabetes mellitus [04/28- - Consulted Dr Lopez, will appreciate his recommendations - Wound care is ordered - Will strictly control her blood sugars # Diabetes mellitus, insulin-dependent - A1c in November 2023 is 12.2 - Repeat HbA1c is ordered - 7.5% - Patient reported that she is using insulin sliding scale and 15 units of insulin during night Plan - Patient is placed on insulin sliding scale - Started on Lantus 15 units and will adjust dosage based on morning blood sugars # Hypokalemia - Potassium at the time of admission is 3.2, today - 3.3 Plan - Patient was given 40 mg of oral potassium - Will continue to monitor her lites and replete as needed Hospital Maintenance: Dispo: medsurg DVT ppx: lovenox GI ppx: protonix Diet: carb consistent, IV lines: Peripheral Code status: Full Patient plan of care was discussed with the attending physician, Dr. Armenta and senior resident Dr. Ivory Yanes, PGY1
[2025-04-29] MEDS: INSULIN GLARGINE (Lantus) 5 UNIT/0.05 ML (PER 5 UNITS) 10 UNIT SC (20:16)
[2025-04-30] VITALS (7 sets, daily range): BP systolic 101–129; BP diastolic 60–80; PULSE 65–81; RESP 17–18; TEMP 36–36.2; O2SAT 96–98
[2025-04-30] MEDS: HYDROcodone/APAP 5/325 TABLET 1 TAB PO ×3 (00:13→21:25)
[2025-04-30] MEDS: PIPER/TAZO 3.375 GM PREMIX 3.375 GM/50 ML BAG IV ×3 (05:17→21:24)
[2025-04-30 06:46] LABS: Basophils # (Auto) 0.1 Thou/mm3 (0.0-0.2); Basophils % (Auto) 1 % (0-2.5); Eosinophils # (Auto) 0.4 Thou/mm3 (0.0-0.5); Eosinophils % (Auto) 5 % (0-10); Hematocrit 38.9 % (36.0-46.0); Hemoglobin 13.0 g/dL (12.0-16.0); Immature Granulocytes Auto 0.06 Thou/mm3 (0.00-0.00); Lymphocytes # (Auto) 1.8 Thou/mm3 (1.0-4.8); Lymphocytes % (Auto) 23 % (10-50); Mean Corpuscular HGB Conc 33.4 g/dl (31.0-37.0); Mean Corpuscular Hemoglobin 28.0 pg (25.0-35.0); Mean Corpuscular Volume 84 fL (80-100); Monocytes # (Auto) 0.5 Thou/mm3 (0.0-0.8); Monocytes % (Auto) 7 % (0-12); Neutrophils # (Auto) 5.0 Thou/mm3 (1.8-7.7); Neutrophils % (Auto) 64 % (37-80); Nucleated Red Blood Cell # 0.00 Thou/mm3 (0.00-0.00); Nucleated Red Blood Cell % 0 /100 WBC (0); Platelet Count 481 Thou/mm3 (140-440); RDW Standard Deviation 59.0 fL (36.4-46.3); Red Blood Count 4.65 Miln/mm3 (4.00-5.20); White Blood Count 7.8 Thou/mm3 (3.6-11.0)
[2025-04-30] MEDS: INSULIN LISPRO (AdmeLOG) 1 UNIT/0.01 ML UNIT SC ×3 (07:41→21:25)
[2025-04-30 07:59] LABS: Alanine Aminotransferase < 7 U/L (10-49); Albumin, Serum 3.5 gm/dL (3.4-4.8); Albumin/Globulin Ratio 0.9 (1.2-2.2); Alkaline Phosphatase 110 U/L (46-116); Anion Gap 11 (7-16); Aspartate Amino Transferase 12 U/L (0-34); BUN/Creatinine Ratio 13 Ratio (12-20); Bilirubin,Total 0.5 mg/dL (0.3-1.2); Blood Urea Nitrogen 10 mg/dL (9-23); Calcium 9.5 mg/dL (8.3-10.6); Calcium (Corrected) 9.9 mg/dL (8.5-10.1); Carbon Dioxide 25.5 mMol/L (20.0-31.0); Chloride 99 mMol/L (98-107); Creatinine (Component) 0.8 mg/dL (0.6-1.3); Estimated Creatinine Clearance 91.7 mL/min (>60); Globulin 3.9 gm/dL (2.3-3.5); Glucose 159 mg/dL (74-106); Osmolality,Calculated 272 (275-295); Potassium 3.9 mMol/L (3.4-5.1); Sodium 135 mMol/L (136-145); Total Protein 7.4 gm/dL (5.7-8.2); eGFR > 60 See Note
[2025-04-30] MEDS: PANTOPRAZOLE 40 MG TABLET PO (08:24)
[2025-04-30] MEDS: ENOXAPARIN SOD INJ 40 MG/0.4 ML SYRINGE SC (08:25)
[2025-04-30 10:43] LABS: Vancomycin,Trough 15.8 mcg/mL (5.0-10.0)
--- NOTE | 2025-04-30 13:03 | PC.PT ---
04/30/2025 PT eval performed. Patient needs significant education re: activity and care of R foot based on questions patient asked and almost constant VCs for WB restrictions to protect toe surgery.
--- NOTE | 2025-04-30 13:17 | PC.PT ---
04/30/2025 PT eval performed but patient now understanding WB restricitons on R foot post-op. Patient will benefit for additional education / assistance for safety and healing
[2025-04-30] MEDS: POLYETHYLENE GLYCOL 17 GM PACKET PO (15:13)
--- NOTE | 2025-04-30 17:10 | ESPR_ITS ---
<Statement entered by Kym Armenta MD - 05/02/25 15:38> I Kym Armenta MD reviewed the note and agree with the resident's assessment & plan with exceptions as below. I have personally reviewed labs, imaging, home meds/prior records, examined the patient, formulated and discussed management plan with the IM team. A 59-year-old female admitted for osteomyelitis of multiple toes s/p amputation with residual toe containing osteomyelitis. Continue IV fluids, empiric antibiotic coverage with vancomycin and Zosyn. Consult ID for optimal osteomyelitis management of the residual toe following amputation. Documentation for date of: 04/30/25 Subjective Subjective Interval history: Patient is seen and examined at the bedside Denies any other complaints. No acute overnight events. Patient underwent only great toe amputation but patient is also having osteomyelitis of second digit of the right foot Patient might need long-term IV antibiotics in view of osteomyelitis Will talk to infectious diseases Dr. Lopez about further management. Exam Vital Signs Temp Pulse Resp BP Pulse Ox O2 Del Method O2 Flow Rate 96.8 F 70 18 127/78 97 Room Air 2 04/30/25 16:00 04/30/25 16:00 04/30/25 16:00 04/30/25 16:04/30/25 16:04/30/25 16:04/29/25 09:08 Narrative Exam General: Awake. HEENT: Normocephalic, atraumatic, mucous membranes moist. Heart: Regular rate and rhythm, no murmurs. Lungs: Clear to auscultation with no wheezing or crackles. Abdomen: Soft, nondistended, nontender, positive bowel sounds. ?No guarding or rebound tenderness. Neurologic: Alert and oriented x3, no gross neurological deficit, and patient able to move all 4 extremities. Extremities: Right foot is wrapped in dressing Skin: No rash or ecchymoses. Objective Labs 04/30/25 06:10 04/30/25 06:10 Labs: Laboratory Results - last 24 hr 04/30/25 04/30/25 06:10 09:30 WBC 7.8 RBC 4.65 Hgb 13.0 Hct 38.9 MCV 84 MCH 28.0 MCHC 33.4 RDW Std Deviation 59.0 H Plt Count 481 H Neut % (Auto) 64 Lymph % (Auto) 23 [place] % (Auto) 7 Eos % (Auto) 5 Baso % (Auto) 1 Neut # (Auto) 5.0 Lymph # (Auto) 1.8 [place] # (Auto) 0.5 Eos # (Auto) 0.4 Baso # (Auto) 0.1 Immature Gran # (Auto) 0.06 H Absolute Nucleated RBC 0.00 Immature Gran % 1 H Nucleated RBC % 0 Sodium 135 L Potassium 3.9 D Chloride 99 Carbon Dioxide 25.5 Anion Gap 11 BUN 10 Creatinine 0.8 Estim Creat Clear Calc 91.7 eGFR > 60 BUN/Creatinine Ratio 13 Glucose 159 H D Calculated Osmolality 272 L Calcium 9.5 Corrected Calcium 9.9 Total Bilirubin 0.5 AST 12 ALT < 7 L Alkaline Phosphatase 110 Total Protein 7.4 Albumin 3.5 Globulin 3.9 H Albumin/Globulin Ratio 0.9 L Vancomycin Trough 15.8 H Quality Measures Quality Measures VTE prophylaxis Assessment & Plan Assessment Current Active Medications: Generic Name Dose Route Start Last Admin Trade Name Freq PRN Reason Stop Dose Admin Acetaminophen 650 mg 04/28/25 15:43 Acetaminophen 325 Mg Tablet PO 05/28/25 15:42 Q6H PRN Fever >100.3 or mild pain 1-3 Hydrocodone Bitart/Acetaminophen 1 tab 04/28/25 15:50 04/30/25 10:02 Hydrocodone/Apap 5/325 Tablet PO 05/03/25 15:49 1 tab Q6HR PRN Administration Pain 7-10 Dextrose 25 ml 04/28/25 15:49 Dextrose 50%-Water Inj 50 Ml Syringe IV 05/28/25 15:48 Q15MIN PRN BG 50-70 responsive npo pt Dextrose 50 ml 04/28/25 15:49 Dextrose 50%-Water Inj 50 Ml Syringe IV 05/28/25 15:48 Q15MIN PRN BG <50 OR BG <70 & pt unresponsive Enoxaparin Sodium 40 mg 04/29/25 09:00 04/30/25 08:25 Enoxaparin Sod Inj 40 Mg/0.4 Ml Syringe SC 05/13/25 08:59 40 mg QDAY TRES Administration Glucagon 1 mg 04/28/25 15:49 Glucagon Inj 1 Mg Vial IM Q15MIN PRN BG <70, and no IV access Vancomycin HCl 250 mls @ 120 mls/hr 04/29/25 10:00 04/30/25 10:55 Vancomycin/Water 1250 Mg Ivpb IV 05/06/25 09:59 Not Given Q12H [facility] Protocol Piperacillin/Tazobactam/Dextrose 3.375 gm in 50 mls @ 12.5 mls/hr 04/29/25 14:00 04/30/25 14:17 Zosyn IV 05/05/25 21:59 12.5 mls/hr Q8HR TRES Administration Insulin Glargine 15 unit 04/30/25 21:00 Insulin Glargine (Lantus) 5 Unit/0.05 Ml (Per 5 Units) SC 05/30/25 20:59 HS TRES Insulin Human Lispro 0 unit 04/28/25 17:00 04/30/25 16:47 Insulin Lispro (Admelog) 1 Unit/0.01 Ml Unit SC 05/28/25 16:59 Not Given ACHS [facility] Protocol Ondansetron HCl 4 mg 04/28/25 15:43 Ondansetron Inj 2 Mg/Ml Inj 2 Ml IVP 05/28/25 15:42 Q6H PRN NAUSEA OR VOMITING Protocol Pantoprazole Sodium 40 mg 04/29/25 09:00 04/30/25 08:24 Pantoprazole 40 Mg Tablet PO 05/29/25 08:59 40 mg QDAY [facility] Administration Pharmacy Consult 1 each 04/29/25 09:00 04/30/25 10:54 Vancomycin Pharmacy To Dose 1 Each Each IV 05/29/25 08:59 Not Given QDAY TRES Polyethylene Glycol 17 gm 04/30/25 14:30 04/30/25 15:13 Polyethylene Glycol 17 Gm Packet PO 05/30/25 14:29 17 gm QDAY [facility] Administration Sennosides 1 tab 04/29/25 09:00 04/30/25 08:24 Senna Tablet PO 05/29/25 08:59 1 tab QDAY [facility] Administration Protocol Plan 59-year-old female with significant past medical history of diabetes mellitus on insulin presented to the hospital with chief complaints of worsening of wound on her right lower extremity since 1 week and admitted for osteomyelitis of 1st and 2nd digits of right foot. # Osteomyelitis of right foot S/P amputation of 1st toe - POD 1 # Diabetic foot with gangrene # Underlying diabetes mellitus - Presented with complaints of recent worsening of wound on her right lower extremity - Denies fever, any other associated symptoms. Reported that she received 2 doses of ceftriaxone - On physical examination, noted erythema extending up to mid foot on dorsal aspect and necrosis, yellowish discharge on 1st and 2nd digits of right foot - Vitals at the time of admission are significant for blood pressure 134/80 mmHg - Labs are significant for WBC 13.1, ESR 126, sodium 134, potassium 3.2, chloride 96, glucose 204, CRP 15.4 - Urinalysis is positive for 4 RBC, 12 WBC. Tested negative for urine drug screen - Foot x-ray showed osteomyelitis of 1st and 2nd digits - Arterial Doppler of bilateral lower extremity is negative for PAD. Venous Doppler is negative for DVT Plan - General Surgeon, Dr. Green is consulted and patient underwent amputation of 1st toe of right foot - Started on vancomycin and Zosyn in view of underlying diabetes mellitus [04/28- - Consulted Dr Lopez, will appreciate his recommendations - Wound care is ordered - Will strictly control her blood sugars # Diabetes mellitus, insulin-dependent - A1c in November 2023 is 12.2 - Repeat HbA1c is ordered - 7.5% - Patient reported that she is using insulin sliding scale and 15 units of insulin during night Plan - Patient is placed on insulin sliding scale - Started on Lantus 15 units and will adjust dosage based on morning blood sugars # Hypokalemia, resolved - Potassium at the time of admission is 3.2, today - 3.9 Plan - Will continue to monitor her lites and replete as needed Hospital Maintenance: Dispo: medsurg DVT ppx: lovenox GI ppx: protonix Diet: carb consistent IV lines: Peripheral Code status: Full Patient plan of care was discussed with the attending physician, Dr. Geovany Yanes, PGY1
[2025-04-30] MEDS: VANCOMYCIN/WATER 1250 MG IVPB 250 ML 120 MG IV (21:25)
[2025-04-30] MEDS: INSULIN GLARGINE (Lantus) 5 UNIT/0.05 ML (PER 5 UNITS) 15 UNIT SC (21:26)
[2025-05-01 04:00] VITALS: BP 135/77; PULSE 64; RESP 17; TEMP 36.1; O2SAT 97
[2025-05-01] MEDS: PIPER/TAZO 3.375 GM PREMIX 3.375 GM/50 ML BAG IV ×3 (05:05→21:04)
[2025-05-01 06:01] LABS: Basophils # (Auto) 0.1 Thou/mm3 (0.0-0.2); Basophils % (Auto) 1 % (0-2.5); Eosinophils # (Auto) 0.5 Thou/mm3 (0.0-0.5); Eosinophils % (Auto) 6 % (0-10); Hematocrit 41.8 % (36.0-46.0); Hemoglobin 13.8 g/dL (12.0-16.0); Immature Granulocytes Auto 0.09 Thou/mm3 (0.00-0.00); Lymphocytes # (Auto) 2.3 Thou/mm3 (1.0-4.8); Lymphocytes % (Auto) 29 % (10-50); Mean Corpuscular HGB Conc 33.0 g/dl (31.0-37.0); Mean Corpuscular Hemoglobin 27.7 pg (25.0-35.0); Mean Corpuscular Volume 84 fL (80-100); Monocytes # (Auto) 0.6 Thou/mm3 (0.0-0.8); Monocytes % (Auto) 7 % (0-12); Neutrophils # (Auto) 4.5 Thou/mm3 (1.8-7.7); Neutrophils % (Auto) 56 % (37-80); Nucleated Red Blood Cell # 0.00 Thou/mm3 (0.00-0.00); Nucleated Red Blood Cell % 0 /100 WBC (0); Platelet Count 498 Thou/mm3 (140-440); RDW Standard Deviation 58.3 fL (36.4-46.3); Red Blood Count 4.99 Miln/mm3 (4.00-5.20); White Blood Count 8.0 Thou/mm3 (3.6-11.0)
[2025-05-01 06:52] LABS: Alanine Aminotransferase 8 U/L (10-49); Albumin, Serum 3.8 gm/dL (3.4-4.8); Albumin/Globulin Ratio 0.8 (1.2-2.2); Alkaline Phosphatase 123 U/L (46-116); Anion Gap 10 (7-16); Aspartate Amino Transferase 14 U/L (0-34); BUN/Creatinine Ratio 8 Ratio (12-20); Bilirubin,Total 0.4 mg/dL (0.3-1.2); Blood Urea Nitrogen 7 mg/dL (9-23); Calcium 9.4 mg/dL (8.3-10.6); Calcium (Corrected) 9.6 mg/dL (8.5-10.1); Carbon Dioxide 27.5 mMol/L (20.0-31.0); Chloride 102 mMol/L (98-107); Creatinine (Component) 0.9 mg/dL (0.6-1.3); Estimated Creatinine Clearance 81.5 mL/min (>60); Globulin 4.7 gm/dL (2.3-3.5); Glucose 143 mg/dL (74-106); Osmolality,Calculated 277 (275-295); Potassium 4.0 mMol/L (3.4-5.1); Sodium 139 mMol/L (136-145); Total Protein 8.5 gm/dL (5.7-8.2); eGFR > 60 See Note
[2025-05-01 08:00] VITALS: BP 130/82; PULSE 96; RESP 15; TEMP 36.8; O2SAT 97
[2025-05-01] MEDS: PANTOPRAZOLE 40 MG TABLET PO (09:06)
[2025-05-01] MEDS: POLYETHYLENE GLYCOL 17 GM PACKET PO (09:06)
[2025-05-01] MEDS: ENOXAPARIN SOD INJ 40 MG/0.4 ML SYRINGE SC (09:07)
[2025-05-01] MEDS: VANCOMYCIN/WATER 1250 MG IVPB 250 ML 120 MG IV ×2 (09:24→21:04)
[2025-05-01] MEDS: HYDROcodone/APAP 5/325 TABLET 1 TAB PO ×2 (10:47→21:23)
--- NOTE | 2025-05-01 10:48 | PC.SS ---
SS met with patient who is alert/oriented. Patient was able to verify demographics. [place]. Patient was admitted for right toe infection. Patient states she is independent with ADL's. She does have two walkers that she uses at home. She has a FWW and a rollator walker. Patient has hx: Diabetes and is on insulin and uses a glucometer machine. PCP: [facility]. Last appt. was last week. Transportation is provided by family. Alt medical decision maker is Armando candelaria. Alt medical decision maker: Armando Candelaria, d/c plan: home with family transportation: family
[2025-05-01] MEDS: INSULIN LISPRO (AdmeLOG) 1 UNIT/0.01 ML UNIT SC ×2 (11:57→20:21)
[2025-05-01 12:00] VITALS: BP 123/69; PULSE 67; RESP 15; TEMP 36.9; O2SAT 97
[2025-05-01 16:00] VITALS: BP 119/74; PULSE 72; RESP 17; TEMP 36.9; O2SAT 96
--- NOTE | 2025-05-01 16:53 | ESPR_ITS ---
<Statement entered by Kym Armenta MD - 05/02/25 15:39> I Kym Armenta MD reviewed the note and agree with the resident's assessment & plan with exceptions as below. I have personally reviewed labs, imaging, home meds/prior records, examined the patient, formulated and discussed management plan with the IM team. A 59-year-old female admitted for osteomyelitis of multiple toes s/p amputation with residual toe containing osteomyelitis. Continue IV fluids, empiric antibiotic coverage with vancomycin and Zosyn. Consult ID for optimal osteomyelitis management of the residual toe following amputation. Documentation for date of: 05/01/25 Subjective Subjective Interval history: Patient is seen and examined at bedside No acute overnight events. Denies any other complaints Patient underwent amputation of only 1 digit of right foot, and found to have osteomyelitis of second digit also Patient needs antibiotics for the osteomyelitis of second digit of right foot osteomyelitis Will talk to Dr Lopez tomorrow and will appreciate his recommendations Exam Vital Signs Temp Pulse Resp BP Pulse Ox O2 Del Method O2 Flow Rate 98.5 F 72 17 119/74 96 Room Air 2 05/01/25 16:00 05/01/25 16:00 05/01/25 16:00 05/01/25 16:00 05/01/25 16:00 05/01/25 04:00 04/29/25 09:08 Narrative Exam General: Awake. HEENT: Normocephalic, atraumatic, mucous membranes moist. Heart: Regular rate and rhythm, no murmurs. Lungs: Clear to auscultation with no wheezing or crackles. Abdomen: Soft, nondistended, nontender, positive bowel sounds. ?No guarding or rebound tenderness. Neurologic: Alert and oriented x3, no gross neurological deficit, and patient able to move all 4 extremities. Extremities: Right foot is wrapped in dressing Skin: No rash or ecchymoses. Objective Labs 05/01/25 04:42 05/01/25 04:42 Labs: Laboratory Results - last 24 hr 05/01/25 04:42 WBC 8.0 RBC 4.99 Hgb 13.8 Hct 41.8 MCV 84 MCH 27.7 MCHC 33.0 RDW Std Deviation 58.3 H Plt Count 498 H Neut % (Auto) 56 Lymph % (Auto) 29 [place] % (Auto) 7 Eos % (Auto) 6 Baso % (Auto) 1 Neut # (Auto) 4.5 Lymph # (Auto) 2.3 [place] # (Auto) 0.6 Eos # (Auto) 0.5 Baso # (Auto) 0.1 Immature Gran # (Auto) 0.09 H Absolute Nucleated RBC 0.00 Immature Gran % 1 H Nucleated RBC % 0 Sodium 139 Potassium 4.0 Chloride 102 Carbon Dioxide 27.5 Anion Gap 10 BUN 7 L Creatinine 0.9 Estim Creat Clear Calc 81.5 eGFR > 60 BUN/Creatinine Ratio 8 L Glucose 143 H Calculated Osmolality 277 Calcium 9.4 Corrected Calcium 9.6 Total Bilirubin 0.4 AST 14 ALT 8 L Alkaline Phosphatase 123 H Total Protein 8.5 H Albumin 3.8 Globulin 4.7 H Albumin/Globulin Ratio 0.8 L Quality Measures Quality Measures VTE prophylaxis Assessment & Plan Assessment Current Active Medications: Generic Name Dose Route Start Last Admin Trade Name Freq PRN Reason Stop Dose Admin Acetaminophen 650 mg 04/28/25 15:43 Acetaminophen 325 Mg Tablet PO 05/28/25 15:42 Q6H PRN Fever >100.3 or mild pain 1-3 Hydrocodone Bitart/Acetaminophen 1 tab 04/28/25 15:50 05/01/25 10:47 Hydrocodone/Apap 5/325 Tablet PO 05/03/25 15:49 1 tab Q6HR PRN Administration Pain 7-10 Dextrose 25 ml 04/28/25 15:49 Dextrose 50%-Water Inj 50 Ml Syringe IV 05/28/25 15:48 Q15MIN PRN BG 50-70 responsive npo pt Dextrose 50 ml 04/28/25 15:49 Dextrose 50%-Water Inj 50 Ml Syringe IV 05/28/25 15:48 Q15MIN PRN BG <50 OR BG <70 & pt unresponsive Enoxaparin Sodium 40 mg 04/29/25 09:00 05/01/25 09:07 Enoxaparin Sod Inj 40 Mg/0.4 Ml Syringe SC 05/13/25 08:59 40 mg QDAY TRES Administration Glucagon 1 mg 04/28/25 15:49 Glucagon Inj 1 Mg Vial IM Q15MIN PRN BG <70, and no IV access Vancomycin HCl 250 mls @ 120 mls/hr 04/29/25 10:00 05/01/25 09:24 Vancomycin/Water 1250 Mg Ivpb IV 05/06/25 09:59 120 mls/hr Q12H TRES Administration Protocol Piperacillin/Tazobactam/Dextrose 3.375 gm in 50 mls @ 12.5 mls/hr 04/29/25 14:00 05/01/25 14:17 Zosyn IV 05/05/25 21:59 12.5 mls/hr Q8HR TRES Administration Insulin Glargine 18 unit 05/01/25 21:00 Insulin Glargine (Lantus) 5 Unit/0.05 Ml (Per 5 Units) SC 05/31/25 20:59 HS TRES Insulin Human Lispro 0 unit 04/28/25 17:00 05/01/25 16:44 Insulin Lispro (Admelog) 1 Unit/0.01 Ml Unit SC 05/28/25 16:59 Not Given ACHS [facility] Protocol Ondansetron HCl 4 mg 04/28/25 15:43 Ondansetron Inj 2 Mg/Ml Inj 2 Ml IVP 05/28/25 15:42 Q6H PRN NAUSEA OR VOMITING Protocol Pantoprazole Sodium 40 mg 04/29/25 09:00 05/01/25 09:06 Pantoprazole 40 Mg Tablet PO 05/29/25 08:59 40 mg QDAY TRES Administration Pharmacy Consult 1 each 04/29/25 09:00 05/01/25 09:28 Vancomycin Pharmacy To Dose 1 Each Each IV 05/29/25 08:59 Not Given QDAY TRES Polyethylene Glycol 17 gm 04/30/25 14:30 05/01/25 09:06 Polyethylene Glycol 17 Gm Packet PO 05/30/25 14:29 17 gm QDAY TR[facility] Administration Sennosides 1 tab 04/29/25 09:00 05/01/25 09:24 Senna Tablet PO 05/29/25 08:59 1 tab QDAY TR[facility] Administration Protocol Plan 59-year-old female with significant past medical history of diabetes mellitus on insulin presented to the hospital with chief complaints of worsening of wound on her right lower extremity since 1 week and admitted for osteomyelitis of 1st and 2nd digits of right foot. # Osteomyelitis of right foot S/P amputation of 1st toe - POD 2 # Diabetic foot with gangrene # Underlying diabetes mellitus - Presented with complaints of recent worsening of wound on her right lower extremity - Denies fever, any other associated symptoms. Reported that she received 2 doses of ceftriaxone - On physical examination, noted erythema extending up to mid foot on dorsal aspect and necrosis, yellowish discharge on 1st and 2nd digits of right foot - Vitals at the time of admission are significant for blood pressure 134/80 mmHg - Labs are significant for WBC 13.1, ESR 126, sodium 134, potassium 3.2, chloride 96, glucose 204, CRP 15.4 - Urinalysis is positive for 4 RBC, 12 WBC. Tested negative for urine drug screen - Foot x-ray showed osteomyelitis of 1st and 2nd digits - Arterial Doppler of bilateral lower extremity is negative for PAD. Venous Doppler is negative for DVT Plan - General Surgeon, Dr. Green is consulted and patient underwent amputation of 1st toe of right foot - Started on vancomycin and Zosyn in view of underlying diabetes mellitus [04/28- - Patient had amputation of only 1st digit of right foot but patient had osteomyelitis of 2nd toe, so patient need antibiotics for further management - Consulted Infectious diseases Dr Lopez, will appreciate his recommendations - Wound care is ordered - Will strictly control her blood sugars # Diabetes mellitus, insulin-dependent - A1c in November 2023 is 12.2 - Repeat HbA1c is ordered - 7.5% - Patient reported that she is using insulin sliding scale and 15 units of insulin during night Plan - Patient is placed on insulin sliding scale - Started on Lantus 15 units, increased to 18 units. will adjust dosage based on morning blood sugars # Hypokalemia, resolved - Potassium at the time of admission is 3.2, today - 4 Plan - Will continue to monitor her lites and replete as needed Hospital Maintenance: Dispo: medsurg DVT ppx: lovenox GI ppx: protonix Diet: carb consistent IV lines: Peripheral Code status: Full Patient plan of care was discussed with the attending physician, Dr. Geovany Yanes, PGY1
[2025-05-01 19:41] VITALS: BP 116/75; PULSE 68; RESP 18; TEMP 35.7; O2SAT 97
[2025-05-01 23:38] VITALS: BP 132/83; PULSE 66; RESP 18; TEMP 36; O2SAT 97
[2025-05-02 03:55] VITALS: BP 133/83; PULSE 64; RESP 16; TEMP 35.7; O2SAT 97
[2025-05-02] MEDS: PIPER/TAZO 3.375 GM PREMIX 3.375 GM/50 ML BAG IV ×3 (05:05→21:57)
[2025-05-02 06:20] LABS: Basophils # (Auto) 0.1 Thou/mm3 (0.0-0.2); Basophils % (Auto) 1 % (0-2.5); Eosinophils # (Auto) 0.4 Thou/mm3 (0.0-0.5); Eosinophils % (Auto) 5 % (0-10); Hematocrit 42.0 % (36.0-46.0); Hemoglobin 13.8 g/dL (12.0-16.0); Immature Granulocytes Auto 0.09 Thou/mm3 (0.00-0.00); Lymphocytes # (Auto) 2.0 Thou/mm3 (1.0-4.8); Lymphocytes % (Auto) 26 % (10-50); Mean Corpuscular HGB Conc 32.9 g/dl (31.0-37.0); Mean Corpuscular Hemoglobin 27.9 pg (25.0-35.0); Mean Corpuscular Volume 85 fL (80-100); Monocytes # (Auto) 0.5 Thou/mm3 (0.0-0.8); Monocytes % (Auto) 7 % (0-12); Neutrophils # (Auto) 4.7 Thou/mm3 (1.8-7.7); Neutrophils % (Auto) 60 % (37-80); Nucleated Red Blood Cell # 0.00 Thou/mm3 (0.00-0.00); Nucleated Red Blood Cell % 0 /100 WBC (0); Platelet Count 454 Thou/mm3 (140-440); RDW Standard Deviation 58.3 fL (36.4-46.3); Red Blood Count 4.94 Miln/mm3 (4.00-5.20); White Blood Count 7.9 Thou/mm3 (3.6-11.0)
[2025-05-02 06:36] LABS: Alanine Aminotransferase 10 U/L (10-49); Albumin, Serum 3.4 gm/dL (3.4-4.8); Albumin/Globulin Ratio 0.8 (1.2-2.2); Alkaline Phosphatase 106 U/L (46-116); Anion Gap 10 (7-16); Aspartate Amino Transferase 20 U/L (0-34); BUN/Creatinine Ratio 9 Ratio (12-20); Bilirubin,Total 0.3 mg/dL (0.3-1.2); Blood Urea Nitrogen 7 mg/dL (9-23); Calcium 9.1 mg/dL (8.3-10.6); Calcium (Corrected) 9.6 mg/dL (8.5-10.1); Carbon Dioxide 25.5 mMol/L (20.0-31.0); Chloride 104 mMol/L (98-107); Creatinine (Component) 0.8 mg/dL (0.6-1.3); Estimated Creatinine Clearance 91.7 mL/min (>60); Globulin 4.5 gm/dL (2.3-3.5); Glucose 155 mg/dL (74-106); Osmolality,Calculated 278 (275-295); Potassium 3.8 mMol/L (3.4-5.1); Sodium 139 mMol/L (136-145); Total Protein 7.9 gm/dL (5.7-8.2); eGFR > 60 See Note
[2025-05-02 08:00] VITALS: BP 105/54; PULSE 70; RESP 17; TEMP 36.4; O2SAT 97
[2025-05-02] MEDS: POLYETHYLENE GLYCOL 17 GM PACKET PO (08:26)
[2025-05-02] MEDS: PANTOPRAZOLE 40 MG TABLET PO (08:26)
[2025-05-02] MEDS: ENOXAPARIN SOD INJ 40 MG/0.4 ML SYRINGE SC (08:27)
--- NOTE | 2025-05-02 09:08 | PD.IDPROG ---
Subjective Subjective Interval history: primary team wants rx recs for toe that was not amputated drug penetration into digits is poor. so outcomes are not assured. gpc on bx so far from sunday 04/29 Exam Vital Signs Temp Pulse Resp BP Pulse Ox O2 Del Method O2 Flow Rate 97.5 F 70 17 105/54 L 97 Room Air 2 05/02/25 08:00 05/02/25 08:00 05/02/25 08:00 05/02/25 08:00 05/02/25 08:00 05/02/25 08:00 04/29/25 09:08 Narrative Exam limited eval Objective - Internal Medicine Labs 05/02/25 04:40 05/02/25 04:40 Labs: Laboratory Results - last 24 hr 05/02/25 04:40 WBC 7.9 RBC 4.94 Hgb 13.8 Hct 42.0 MCV 85 MCH 27.9 MCHC 32.9 RDW Std Deviation 58.3 H Plt Count 454 H D Neut % (Auto) 60 Lymph % (Auto) 26 [place] % (Auto) 7 Eos % (Auto) 5 Baso % (Auto) 1 Neut # (Auto) 4.7 Lymph # (Auto) 2.0 [place] # (Auto) 0.5 Eos # (Auto) 0.4 Baso # (Auto) 0.1 Immature Gran # (Auto) 0.09 H Absolute Nucleated RBC 0.00 Immature Gran % 1 H Nucleated RBC % 0 Sodium 139 Potassium 3.8 Chloride 104 Carbon Dioxide 25.5 Anion Gap 10 BUN 7 L Creatinine 0.8 Estim Creat Clear Calc 91.7 eGFR > 60 BUN/Creatinine Ratio 9 L Glucose 155 H Calculated Osmolality 278 Calcium 9.1 Corrected Calcium 9.6 Total Bilirubin 0.3 AST 20 ALT 10 Alkaline Phosphatase 106 Total Protein 7.9 Albumin 3.4 Globulin 4.5 H Albumin/Globulin Ratio 0.8 L Assessment & Plan A&P Narrative osteo of toe dm II probable pvd but neg arterial study in march of this year, just a month ago 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 control dm will see again in house prn I can not f/u as outpt. 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
[2025-05-02 09:29] LABS: Vancomycin,Trough 19.9 mcg/mL (5.0-10.0)
[2025-05-02] MEDS: VANCOMYCIN/NS 1 GM IVPB 200 ML IV ×2 (10:51→21:32)
[2025-05-02] MEDS: INSULIN LISPRO (AdmeLOG) 1 UNIT/0.01 ML UNIT SC ×3 (11:52→20:27)
[2025-05-02 12:00] VITALS: BP 115/75; PULSE 75; RESP 16; TEMP 36.3; O2SAT 95
--- NOTE | 2025-05-02 14:12 | ESPR_ITS ---
<Statement entered by Kym Armenta MD - 05/02/25 15:41> I Kym Armenta MD reviewed the note and agree with the resident's assessment & plan with exceptions as below. I have personally reviewed labs, imaging, home meds/prior records, examined the patient, formulated and discussed management plan with the IM team. A 59-year-old female admitted for osteomyelitis of multiple toes s/p amputation with residual toe containing osteomyelitis. Continue IV fluids, empiric antibiotic coverage with vancomycin and Zosyn. Consult ID for optimal osteomyelitis management of the residual toe following amputation. Follow-up with PT for optimal discharge disposition. Documentation for date of: 05/02/25 Subjective Subjective Interval history: Patient doing well, PT was ordered but has not been completed. ID Dr. Lopez recommended IV antibiotics with Rocephin and Doxycycline for 6 weeks. Patient will likely need PICC line for completion of antibiotics course. Exam Vital Signs Temp Pulse Resp BP Pulse Ox O2 Del Method O2 Flow Rate 97.5 F 70 17 105/54 L 97 Room Air 2 05/02/25 08:00 05/02/25 08:00 05/02/25 08:00 05/02/25 08:00 05/02/25 08:00 05/02/25 08:00 04/29/25 09:08 Narrative Exam General: Awake. HEENT: Normocephalic, atraumatic, mucous membranes moist. Heart: Regular rate and rhythm, no murmurs. Lungs: Clear to auscultation with no wheezing or crackles. Abdomen: Soft, nondistended, nontender, positive bowel sounds. ?No guarding or rebound tenderness. Neurologic: Alert and oriented x3, no gross neurological deficit, and patient able to move all 4 extremities. Extremities: Right foot is wrapped in dressing Skin: No rash or ecchymoses. Objective Labs 05/02/25 04:40 05/02/25 04:40 Labs: Laboratory Results - last 24 hr 05/02/25 05/02/25 04:40 08:56 WBC 7.9 RBC 4.94 Hgb 13.8 Hct 42.0 MCV 85 MCH 27.9 MCHC 32.9 RDW Std Deviation 58.3 H Plt Count 454 H D Neut % (Auto) 60 Lymph % (Auto) 26 [place] % (Auto) 7 Eos % (Auto) 5 Baso % (Auto) 1 Neut # (Auto) 4.7 Lymph # (Auto) 2.0 [place] # (Auto) 0.5 Eos # (Auto) 0.4 Baso # (Auto) 0.1 Immature Gran # (Auto) 0.09 H Absolute Nucleated RBC 0.00 Immature Gran % 1 H Nucleated RBC % 0 Sodium 139 Potassium 3.8 Chloride 104 Carbon Dioxide 25.5 Anion Gap 10 BUN 7 L Creatinine 0.8 Estim Creat Clear Calc 91.7 eGFR > 60 BUN/Creatinine Ratio 9 L Glucose 155 H Calculated Osmolality 278 Calcium 9.1 Corrected Calcium 9.6 Total Bilirubin 0.3 AST 20 ALT 10 Alkaline Phosphatase 106 Total Protein 7.9 Albumin 3.4 Globulin 4.5 H Albumin/Globulin Ratio 0.8 L Vancomycin Trough 19.9 H Quality Measures Quality Measures VTE prophylaxis Assessment & Plan Assessment Current Active Medications: Generic Name Dose Route Start Last Admin Trade Name Freq PRN Reason Stop Dose Admin Acetaminophen 650 mg 04/28/25 15:43 Acetaminophen 325 Mg Tablet PO 05/28/25 15:42 Q6H PRN Fever >100.3 or mild pain 1-3 Hydrocodone Bitart/Acetaminophen 1 tab 04/28/25 15:50 05/01/25 21:23 Hydrocodone/Apap 5/325 Tablet PO 05/03/25 15:49 1 tab Q6HR PRN Administration Pain 7-10 Dextrose 25 ml 04/28/25 15:49 Dextrose 50%-Water Inj 50 Ml Syringe IV 05/28/25 15:48 Q15MIN PRN BG 50-70 responsive npo pt Dextrose 50 ml 04/28/25 15:49 Dextrose 50%-Water Inj 50 Ml Syringe IV 05/28/25 15:48 Q15MIN PRN BG <50 OR BG <70 & pt unresponsive Enoxaparin Sodium 40 mg 04/29/25 09:00 05/02/25 08:27 Enoxaparin Sod Inj 40 Mg/0.4 Ml Syringe SC 05/13/25 08:59 40 mg QDAY TRES Administration Glucagon 1 mg 04/28/25 15:49 Glucagon Inj 1 Mg Vial IM Q15MIN PRN BG <70, and no IV access Piperacillin/Tazobactam/Dextrose 3.375 gm in 50 mls @ 12.5 mls/hr 04/29/25 14:00 05/02/25 05:05 Zosyn IV 05/05/25 21:59 12.5 mls/hr Q8HR TRES Administration Vancomycin/Sodium Chloride 200 mls @ 120 mls/hr 05/02/25 10:00 05/02/25 10:51 Vancomycin/Ns 1 Gm Ivpb IV 05/09/25 09:59 120 mls/hr Q12H TRES Administration Insulin Glargine 18 unit 05/01/25 21:00 05/01/25 21:03 Insulin Glargine (Lantus) 5 Unit/0.05 Ml (Per 5 Units) SC 05/31/25 20:59 Not Given HS TRES Insulin Human Lispro 0 unit 04/28/25 17:00 05/02/25 11:52 Insulin Lispro (Admelog) 1 Unit/0.01 Ml Unit SC 05/28/25 16:59 1 unit ACHS TRES Administration Protocol Ondansetron HCl 4 mg 04/28/25 15:43 Ondansetron Inj 2 Mg/Ml Inj 2 Ml IVP 05/28/25 15:42 Q6H PRN NAUSEA OR VOMITING Protocol Pantoprazole Sodium 40 mg 04/29/25 09:00 05/02/25 08:26 Pantoprazole 40 Mg Tablet PO 05/29/25 08:59 40 mg QDAY TRES Administration Pharmacy Consult 1 each 04/29/25 09:00 05/01/25 09:28 Vancomycin Pharmacy To Dose 1 Each Each IV 05/29/25 08:59 Not Given QDAY TRES Polyethylene Glycol 17 gm 04/30/25 14:30 05/02/25 08:26 Polyethylene Glycol 17 Gm Packet PO 05/30/25 14:29 17 gm QDAY TRES Administration Sennosides 1 tab 04/29/25 09:00 05/02/25 08:26 Senna Tablet PO 05/29/25 08:59 1 tab QDAY TRES Administration Protocol Plan 59-year-old female with significant past medical history of diabetes mellitus on insulin presented to the hospital with chief complaints of worsening of wound on her right lower extremity since 1 week and admitted for osteomyelitis of 1st and 2nd digits of right foot. # Osteomyelitis of right foot S/P amputation of 1st toe - POD 2 # Diabetic foot with gangrene # Underlying diabetes mellitus - Presented with complaints of recent worsening of wound on her right lower extremity - Denies fever, any other associated symptoms. Reported that she received 2 doses of ceftriaxone - On physical examination, noted erythema extending up to mid foot on dorsal aspect and necrosis, yellowish discharge on 1st and 2nd digits of right foot - Vitals at the time of admission are significant for blood pressure 134/80 mmHg - Labs are significant for WBC 13.1, ESR 126, sodium 134, potassium 3.2, chloride 96, glucose 204, CRP 15.4 - Urinalysis is positive for 4 RBC, 12 WBC. Tested negative for urine drug screen - Foot x-ray showed osteomyelitis of 1st and 2nd digits - Arterial Doppler of bilateral lower extremity is negative for PAD. Venous Doppler is negative for DVT Plan - General Surgeon, Dr. Green is consulted and patient underwent amputation of 1st toe of right foot - Started on vancomycin and Zosyn in view of underlying diabetes mellitus [04/28- - Patient had amputation of only 1st digit of right foot but patient had osteomyelitis of 2nd toe, so patient need antibiotics for further management - Consulted Infectious diseases Dr Lopez, will appreciate his recommendations - Wound care is ordered - Will strictly control her blood sugars # Diabetes mellitus, insulin-dependent - A1c in November 2023 is 12.2 - Repeat HbA1c is ordered - 7.5% - Patient reported that she is using insulin sliding scale and 15 units of insulin during night Plan - Patient is placed on insulin sliding scale - Started on Lantus 15 units, increased to 18 units. will adjust dosage based on morning blood sugars # Hypokalemia, resolved - Potassium at the time of admission is 3.2, today - 4 Plan - Will continue to monitor her lites and replete as needed Hospital Maintenance: Dispo: medsurg, will need PICC line for IV abx DVT ppx: lovenox GI ppx: protonix Diet: carb consistent IV lines: Peripheral Code status: Full This patient care was discussed with my attending Dr. Geovany Dodson MD PGY-2 Disclaimer: Minor errors in agricultural sales representative may be present since this note was dictated by speech recognition software.
--- NOTE | 2025-05-02 15:43 | PC.SS ---
Addendum entered by Promise Quinones 05/02/25 16:20: Follow up note: SS met with patient and she prefers to start with SNF and then d/c home with HH to continue the i.v. antibiotics. Patient only has Medicare coverage which will cover 20 days . SS clarified with patient. Original Note: rounding note: Patient will require a picc line for 6 weeks of iv. antibiotics. SS will provide options of SNF vs HH
[2025-05-02 16:00] VITALS: BP 112/81; PULSE 78; RESP 18; TEMP 36.1; O2SAT 98
[2025-05-02 20:00] VITALS: BP 129/85; PULSE 77; TEMP 36.3; O2SAT 97
[2025-05-02] MEDS: INSULIN GLARGINE (Lantus) 5 UNIT/0.05 ML (PER 5 UNITS) 18 UNIT SC (20:26)
[2025-05-03] VITALS (10 sets, daily range): BP systolic 108–136; BP diastolic 73–89; PULSE 65–89; RESP 16–20; TEMP 36.1–36.5; O2SAT 94–97; BMI 33.6; BMI 13.0
[2025-05-03] MEDS: PIPER/TAZO 3.375 GM PREMIX 3.375 GM/50 ML BAG IV ×2 (05:03→14:07)
--- NOTE | 2025-05-03 07:21 | PC.NURSE ---
Contacted pharmacy regarding patient's vanco trough level of 19.9. Nurse asked pharmacy if it is okay to give the patients scheduled 1000 vanco. Per pharmacy, it is okay to give the patient's 1000 scheduled vanco.
[2025-05-03 07:26] LABS: Basophils # (Auto) 0.1 Thou/mm3 (0.0-0.2); Basophils % (Auto) 1 % (0-2.5); Eosinophils # (Auto) 0.3 Thou/mm3 (0.0-0.5); Eosinophils % (Auto) 4 % (0-10); Hematocrit 41.5 % (36.0-46.0); Hemoglobin 13.5 g/dL (12.0-16.0); Immature Granulocytes Auto 0.06 Thou/mm3 (0.00-0.00); Lymphocytes # (Auto) 1.8 Thou/mm3 (1.0-4.8); Lymphocytes % (Auto) 23 % (10-50); Mean Corpuscular HGB Conc 32.5 g/dl (31.0-37.0); Mean Corpuscular Hemoglobin 27.2 pg (25.0-35.0); Mean Corpuscular Volume 84 fL (80-100); Monocytes # (Auto) 0.6 Thou/mm3 (0.0-0.8); Monocytes % (Auto) 8 % (0-12); Neutrophils # (Auto) 5.0 Thou/mm3 (1.8-7.7); Neutrophils % (Auto) 64 % (37-80); Nucleated Red Blood Cell # 0.00 Thou/mm3 (0.00-0.00); Nucleated Red Blood Cell % 0 /100 WBC (0); Platelet Count 455 Thou/mm3 (140-440); RDW Standard Deviation 56.7 fL (36.4-46.3); Red Blood Count 4.97 Miln/mm3 (4.00-5.20); White Blood Count 7.8 Thou/mm3 (3.6-11.0)
[2025-05-03 07:46] LABS: Alanine Aminotransferase 14 U/L (10-49); Albumin, Serum 3.5 gm/dL (3.4-4.8); Albumin/Globulin Ratio 0.8 (1.2-2.2); Alkaline Phosphatase 101 U/L (46-116); Anion Gap 4 (7-16); Aspartate Amino Transferase 24 U/L (0-34); BUN/Creatinine Ratio 7 Ratio (12-20); Bilirubin,Total 0.4 mg/dL (0.3-1.2); Blood Urea Nitrogen 6 mg/dL (9-23); Calcium 9.3 mg/dL (8.3-10.6); Calcium (Corrected) 9.7 mg/dL (8.5-10.1); Carbon Dioxide 28.6 mMol/L (20.0-31.0); Chloride 106 mMol/L (98-107); Creatinine (Component) 0.9 mg/dL (0.6-1.3); Estimated Creatinine Clearance 81.5 mL/min (>60); Globulin 4.6 gm/dL (2.3-3.5); Glucose 152 mg/dL (74-106); Osmolality,Calculated 278 (275-295); Potassium 3.9 mMol/L (3.4-5.1); Sodium 139 mMol/L (136-145); Total Protein 8.1 gm/dL (5.7-8.2); eGFR > 60 See Note
[2025-05-03] MEDS: INSULIN LISPRO (AdmeLOG) 1 UNIT/0.01 ML UNIT SC ×3 (07:58→20:36)
--- NOTE | 2025-05-03 09:20 | CHAP ---
Visited with patient and had prayer.
[2025-05-03] MEDS: PANTOPRAZOLE 40 MG TABLET PO (09:27)
[2025-05-03] MEDS: VANCOMYCIN/NS 1 GM IVPB 200 ML IV (09:27)
[2025-05-03] MEDS: POLYETHYLENE GLYCOL 17 GM PACKET PO (09:27)
[2025-05-03] MEDS: ENOXAPARIN SOD INJ 40 MG/0.4 ML SYRINGE SC (09:27)
--- NOTE | 2025-05-03 11:53 | XR_ITS ---
Examination: Ultrasound-guided needle placement right basilic vein. Dual-lumen central line placement (PICC line). Fluoroscopy AP chest, portable, single view Exam date and time:May 03, 2025 1252 hours INDICATIONS: Osteomyelitis foot, need for long-term intravenous antibiotic therapy A timeout was completed verifying correct patient, procedure, site, positioning Informed consent provided Technique: The patient's site was prepped and draped in sterile fashion. Maximum Sterile Barrier Technique used including cap, mask, sterile gown, sterile gloves, and sterile full body drape. If ultrasound technique used: sterile gel and sterile probe covers. Hand Hygiene performed using proper scrub, soap and water, or alcohol-based hand rub. Site right portable apparatus utilized for confirmation patent right basilic vein Utilizing ultrasonographic guidance successful 21-gauge needle puncture into the right basilic vein. Ultrasound images recorded and stored. 5 cc 1% lidocaine administered for local anesthetic. Successful micropuncture with a 21-gauge needle is performed. 0.18 wire guide is then introduced into the SVC under fluoroscopic guidance. Dual-lumen catheter dilator is then introduced, followed by the catheter in the SVC and proper position under fluoroscopic guidance. Successful aspiration of blood and flushing with heparinized saline is then performed in the 2 venous limbs. The catheter sutured in place. Findings: Under fluoroscopy, the tip of the catheter is in good position in the vena cava. Portable chest x-ray, post line placement is ordered. Estimated blood loss 3 cc The patient tolerated the procedure well and was in stable and satisfactory condition at completion of the procedure Impression: Successful ultrasound-guided needle placement right basilic vein Successful placement of dual lumen central line, percutaneous Fluoroscopy 0.2 minute radiation dose 1.62 milligray 1 spot fluoroscopic chest film. AP chest completion procedure demonstrates satisfactory position central line. May use central line.
[2025-05-03] MEDS: GABAPENTIN 100 MG CAPSULE PO (11:59)
[2025-05-03] MEDS: LIDOCAINE INJ PF 1% 30 ML VIAL 4 ML INFL (13:42)
[2025-05-03] MEDS: HEPARIN SOD LOCK SYR 100 UNIT/ML 500 UNIT IV (13:42)
--- NOTE | 2025-05-03 14:00 | PC.NURSE ---
patient transfered via gurney back to room. report given to maria g rn. dressing is clean dry and intact assessed by both myself and rn maria g.
--- NOTE | 2025-05-03 16:37 | ESPR_ITS ---
Documentation for date of: 05/03/25 Subjective Subjective Interval history: Patient examined at bedside today. No acute overnight events. Patient reports she is experiencing some burning pain in her leg however it is manageable. She denies ever using gabapentin. Her white count today is 7.8, hemoglobin 13.5, BUN/creatinine 6 and 0.9 respectively. Vital stable. No other complaints at this time Exam Vital Signs Temp Pulse Resp BP Pulse Ox O2 Del Method O2 Flow Rate 97.7 F 68 18 136/75 H 94 L Room Air 2 05/03/25 13:01 05/03/25 13:46 05/03/25 13:46 05/03/25 13:46 05/03/25 13:46 05/03/25 13:46 04/29/25 09:08 Narrative Exam General: AAOx3 HEENT: Normocephalic, atraumatic, mucous membranes moist. Heart: Regular rate and rhythm, no murmurs. Lungs: Clear to auscultation with no wheezing or crackles. Abdomen: Soft, nondistended, nontender, positive bowel sounds. ?No guarding or rebound tenderness. Neurologic: Alert and oriented x3, no gross neurological deficit, and patient able to move all 4 extremities. Extremities: Right foot is wrapped in dressing Skin: No rash or ecchymoses. Objective Labs 05/04/25 05:53 05/04/25 05:53 Labs: Laboratory Results - last 24 hr 05/03/25 07:09 WBC 7.8 RBC 4.97 Hgb 13.5 Hct 41.5 MCV 84 MCH 27.2 MCHC 32.5 RDW Std Deviation 56.7 H Plt Count 455 H Neut % (Auto) 64 Lymph % (Auto) 23 [place] % (Auto) 8 Eos % (Auto) 4 Baso % (Auto) 1 Neut # (Auto) 5.0 Lymph # (Auto) 1.8 [place] # (Auto) 0.6 Eos # (Auto) 0.3 Baso # (Auto) 0.1 Immature Gran # (Auto) 0.06 H Absolute Nucleated RBC 0.00 Immature Gran % 1 H Nucleated RBC % 0 Sodium 139 Potassium 3.9 Chloride 106 Carbon Dioxide 28.6 Anion Gap 4 L BUN 6 L Creatinine 0.9 Estim Creat Clear Calc 81.5 eGFR > 60 BUN/Creatinine Ratio 7 L Glucose 152 H Calculated Osmolality 278 Calcium 9.3 Corrected Calcium 9.7 Total Bilirubin 0.4 AST 24 ALT 14 Alkaline Phosphatase 101 Total Protein 8.1 Albumin 3.5 Globulin 4.6 H Albumin/Globulin Ratio 0.8 L Quality Measures Quality Measures VTE prophylaxis Assessment & Plan Assessment Current Active Medications: Generic Name Dose Route Start Last Admin Trade Name Freq PRN Reason Stop Dose Admin Acetaminophen 650 mg 04/28/25 15:43 Acetaminophen 325 Mg Tablet PO 05/28/25 15:42 Q6H PRN Fever >100.3 or mild pain 1-3 Collagenase 0 gm 05/03/25 21:00 Collagenase Oint 30 Gm Tube TOP 06/02/25 20:59 HS TRES Dextrose 25 ml 04/28/25 15:49 Dextrose 50%-Water Inj 50 Ml Syringe IV 05/28/25 15:48 Q15MIN PRN BG 50-70 responsive npo pt Dextrose 50 ml 04/28/25 15:49 Dextrose 50%-Water Inj 50 Ml Syringe IV 05/28/25 15:48 Q15MIN PRN BG <50 OR BG <70 & pt unresponsive Enoxaparin Sodium 40 mg 04/29/25 09:00 05/03/25 09:27 Enoxaparin Sod Inj 40 Mg/0.4 Ml Syringe SC 05/13/25 08:59 40 mg QDAY TRES Administration Gabapentin 100 mg 05/03/25 12:00 05/03/25 11:59 Gabapentin 100 Mg Capsule PO 06/02/25 11:59 100 mg QDAY TRES Administration Glucagon 1 mg 04/28/25 15:49 Glucagon Inj 1 Mg Vial IM Q15MIN PRN BG <70, and no IV access Piperacillin/Tazobactam/Dextrose 3.375 gm in 50 mls @ 12.5 mls/hr 04/29/25 14:00 05/03/25 14:07 Zosyn IV 05/05/25 21:59 12.5 mls/hr Q8HR TRES Administration Vancomycin/Sodium Chloride 200 mls @ 120 mls/hr 05/02/25 10:00 05/03/25 09:27 Vancomycin/Ns 1 Gm Ivpb IV 05/09/25 09:59 120 mls/hr Q12H TRES Administration Protocol Insulin Glargine 18 unit 05/01/25 21:00 05/02/25 20:26 Insulin Glargine (Lantus) 5 Unit/0.05 Ml (Per 5 Units) SC 05/31/25 20:59 18 unit HS TRES Administration Insulin Human Lispro 0 unit 04/28/25 17:00 05/03/25 11:28 Insulin Lispro (Admelog) 1 Unit/0.01 Ml Unit SC 05/28/25 16:59 2 unit ACHS TRES Administration Protocol Ondansetron HCl 4 mg 04/28/25 15:43 Ondansetron Inj 2 Mg/Ml Inj 2 Ml IVP 05/28/25 15:42 Q6H PRN NAUSEA OR VOMITING Protocol Pantoprazole Sodium 40 mg 04/29/25 09:00 05/03/25 09:27 Pantoprazole 40 Mg Tablet PO 05/29/25 08:59 40 mg QDAY TRES Administration Pharmacy Consult 1 each 04/29/25 09:00 05/03/25 09:28 Vancomycin Pharmacy To Dose 1 Each Each IV 05/29/25 08:59 Not Given QDAY TRES Polyethylene Glycol 17 gm 04/30/25 14:30 05/03/25 09:27 Polyethylene Glycol 17 Gm Packet PO 05/30/25 14:29 17 gm QDAY TRES Administration Sennosides 1 tab 04/29/25 09:00 05/03/25 09:27 Senna Tablet PO 05/29/25 08:59 1 tab QDAY TRES Administration Protocol Plan Assessment 59-year-old female with significant past medical history of diabetes mellitus on insulin presented to the hospital with chief complaints of worsening of wound on her right lower extremity since 1 week and admitted for osteomyelitis of 1st and 2nd digits of right foot. #Osteomyelitis of right foot S/P amputation of 1st toe - POD 2 #Diabetic foot with gangrene #MSSA R toe culture - Presented with complaints of recent worsening of wound on her right lower extremity - Denies fever, any other associated symptoms. Reported that she received 2 doses of ceftriaxone - On physical examination, noted erythema extending up to mid foot on dorsal as platelets pect and necrosis, yellowish discharge on 1st and 2nd digits of right foot - Vitals at the time of admission are significant for blood pressure 134/80 mmHg - Labs are significant for WBC 13.1, ESR 126, sodium 134, potassium 3.2, chloride 96, glucose 204, CRP 15.4 - Urinalysis is positive for 4 RBC, 12 WBC. Tested negative for urine drug screen - Foot x-ray showed osteomyelitis of 1st and 2nd digits - Arterial Doppler of bilateral lower extremity is negative for PAD. Venous Doppler is negative for DVT - Last day of Abx June 10, 2025. Pt will require 6 weeks of abx including Rocephin 2g IV daily and Doxycycline 100 mg by mouth twice a day - Pt will also need weekly labs including CBC, ESR and CRP - R Toe culture from surgery shows pansensitive MSSA Plan - General Surgeon, Dr. Green is consulted and patient underwent amputation of 1st toe of right foot - PICC line today - Rocephin 2g IV daily and Doxycycline 100 mg by mouth twice a day, end date of Abx June 10, 2025 - Patient had amputation of only 1st digit of right foot but patient had osteomyelitis of 2nd toe, so patient need antibiotics for further management - Consulted Infectious diseases Dr Lopez, will appreciate his recommendations - Wound care is ordered - Will strictly control her blood sugars #Insulin dependent type II Diabetes mellitus A1c 7.5% Patient reported that she is using insulin sliding scale and 15 units of insulin during night Plan: ? Lantus 18 units with 2 units of bolus 3 times daily with meals ? Sliding scale insulin ? Hypoglycemic protocol in place ? Blood sugar checks with meals #Hypokalemia, resolved #Health Maintenance Disposition: MedSurg, PICC line for IV antibiotics, will do SNF for some time DVT prophylaxis: Lovenox GI prophylaxis: Protonix Diet: Carb consistent CODE STATUS: Full Patient seen and care discussed with my attending physician, Dr. Carlos Orr, PGY-1 Attending Provider Attestation/Addendum I attest that I was physically present for the evaluation, physical examination, lab and imaging review of the patient with the residents. I discussed the case with the residents and agree with the findings and plans of care as documented above. Maritza Gonzalez MD
[2025-05-03] MEDS: INSULIN LISPRO (AdmeLOG) 1 UNIT/0.01 ML UNIT 2 UNIT SC (17:02)
[2025-05-03] MEDS: MULTIVITAMINS TABLET 1 TAB PO (17:02)
[2025-05-03] MEDS: ASCORBIC ACID 250 MG TABLET 500 MG PO (20:35)
[2025-05-03] MEDS: cefTRIAXone 2 GM in SODIUM CHLORIDE 0.9% (Popper) 50 ML IV (20:35)
[2025-05-03] MEDS: INSULIN GLARGINE (Lantus) 5 UNIT/0.05 ML (PER 5 UNITS) 18 UNIT SC (20:36)
[2025-05-03] MEDS: DOXYCYCLINE 100 MG TABLET PO (21:41)
[2025-05-03] MEDS: COLLAGENASE OINT 30 GM TUBE TOP (21:42)
[2025-05-04] VITALS: BP 105/63; PULSE 69; RESP 16; TEMP 36.4; O2SAT 97
[2025-05-04] MEDS: ACETAMINOPHEN 325 MG TABLET 650 MG PO (01:48)
[2025-05-04 04:00] VITALS: BP 101/62; PULSE 67; RESP 18; TEMP 36.2; O2SAT 95
[2025-05-04 06:13] LABS: Basophils # (Auto) 0.1 Thou/mm3 (0.0-0.2); Basophils % (Auto) 1 % (0-2.5); Eosinophils # (Auto) 0.4 Thou/mm3 (0.0-0.5); Eosinophils % (Auto) 4 % (0-10); Hematocrit 42.2 % (36.0-46.0); Hemoglobin 13.7 g/dL (12.0-16.0); Immature Granulocytes Auto 0.04 Thou/mm3 (0.00-0.00); Lymphocytes # (Auto) 2.1 Thou/mm3 (1.0-4.8); Lymphocytes % (Auto) 24 % (10-50); Mean Corpuscular HGB Conc 32.5 g/dl (31.0-37.0); Mean Corpuscular Hemoglobin 27.7 pg (25.0-35.0); Mean Corpuscular Volume 85 fL (80-100); Monocytes # (Auto) 0.7 Thou/mm3 (0.0-0.8); Monocytes % (Auto) 8 % (0-12); Neutrophils # (Auto) 5.6 Thou/mm3 (1.8-7.7); Neutrophils % (Auto) 63 % (37-80); Nucleated Red Blood Cell # 0.00 Thou/mm3 (0.00-0.00); Nucleated Red Blood Cell % 0 /100 WBC (0); Platelet Count 432 Thou/mm3 (140-440); RDW Standard Deviation 59.4 fL (36.4-46.3); Red Blood Count 4.95 Miln/mm3 (4.00-5.20); White Blood Count 8.9 Thou/mm3 (3.6-11.0)
[2025-05-04 07:04] LABS: Alanine Aminotransferase 14 U/L (10-49); Albumin, Serum 3.5 gm/dL (3.4-4.8); Albumin/Globulin Ratio 0.8 (1.2-2.2); Alkaline Phosphatase 101 U/L (46-116); Anion Gap 9 (7-16); Aspartate Amino Transferase 22 U/L (0-34); BUN/Creatinine Ratio 10 Ratio (12-20); Bilirubin,Total 0.3 mg/dL (0.3-1.2); Blood Urea Nitrogen 8 mg/dL (9-23); Calcium 9.1 mg/dL (8.3-10.6); Calcium (Corrected) 9.5 mg/dL (8.5-10.1); Carbon Dioxide 26.3 mMol/L (20.0-31.0); Chloride 105 mMol/L (98-107); Creatinine (Component) 0.8 mg/dL (0.6-1.3); Estimated Creatinine Clearance 91.7 mL/min (>60); Globulin 4.5 gm/dL (2.3-3.5); Glucose 132 mg/dL (74-106); Magnesium 1.7 mg/dL (1.6-2.6); Osmolality,Calculated 279 (275-295); Phosphorous 3.5 mg/dL (2.4-5.1); Potassium 3.6 mMol/L (3.4-5.1); Sodium 140 mMol/L (136-145); Total Protein 8.0 gm/dL (5.7-8.2); eGFR > 60 See Note
[2025-05-04 08:00] VITALS: BP 110/72; PULSE 75; RESP 18; TEMP 36.6; O2SAT 94
[2025-05-04] MEDS: INSULIN LISPRO (AdmeLOG) 1 UNIT/0.01 ML UNIT 2 UNIT SC ×2 (08:19→11:38)
[2025-05-04] MEDS: DOXYCYCLINE 100 MG TABLET PO (08:20)
[2025-05-04] MEDS: ENOXAPARIN SOD INJ 40 MG/0.4 ML SYRINGE SC (08:20)
[2025-05-04] MEDS: GABAPENTIN 100 MG CAPSULE PO (08:20)
[2025-05-04] MEDS: ZINC SULFATE 220 MG CAPSULE PO (08:20)
[2025-05-04] MEDS: PANTOPRAZOLE 40 MG TABLET PO (08:20)
[2025-05-04] MEDS: MULTIVITAMINS TABLET 1 TAB PO (08:20)
[2025-05-04] MEDS: ASCORBIC ACID 250 MG TABLET 500 MG PO (08:20)
[2025-05-04] MEDS: POLYETHYLENE GLYCOL 17 GM PACKET PO (08:20)
[2025-05-04 09:35] LABS: C-Reactive Protein 1.3 mg/dL (0.0-0.9)
[2025-05-04 09:40] LABS: Sed Rate (ESR) 109 mm/hr (0-30)
--- NOTE | 2025-05-04 11:19 | PD.RESDS ---
Planned Discharge Date 05/04/25 DS: Providers Provider Date of admission: 04/28/25 15:03 Primary care physician: Physician No Primary/Family Admitting Provider: Teresita Medellin DO Attending Provider on Admission: Maritza Gonzalez MD Consults: 04/28/25 18:15 Consult to Infectious Diseases Routine Comment: Osteomyelitis Consulting Provider: Maksim Lopez 04/28/25 18:16 Consult to General Surgery Routine Comment: Consulting Provider: Jolie Green 04/28/25 18:30 Referral Wound Care Routine Comment: 04/29/25 03:24 Referral Registered Dietitian Stat Comment: 04/29/25 14:06 Referral Physical Therapy Routine Comment: Physician Instructions: 05/03/25 16:19 Referral OP Wound Healing Dept Routine Comment: Right great toe amputation site, + osteomyelitis Attending Provider on DC: Maritza Gonzalez MD Discharging Provider: Maritza Gonzalez MD DS: Diagnosis Problem List Completed Was Problem List Reviewed/Reconciled?: Yes Hospital Course Hospital Course Hospital course: Jocelyn is a 59-year-old female with significant past medical history of insulin-dependent type 2 diabetes mellitus was admitted for osteomyelitis of the right foot status post amputation of first toe and osteomyelitis of second digit of right foot. Patient arrived to the ED with a blood pressure of 134/80 mm Hg. Patient was worked up and was found to have a WBC 13.1, ESR 126, sodium 134, potassium 3.2, chloride 96, glucose 204, CRP 15.4. Urinalysis was positive for 4 RBC, 12 WBC, Utox negative. Foot x-ray showed osteomyelitis of 1st and 2nd digits. Arterial and venous Doppler of bilateral lower extremity was unremarkable. General Surgeon, Dr. Green was consulted who had recommended surgical intervention. Medicine was consulted patient was admitted to the floors. While on the floors, patient had amputation of the right first toe which had ended up showing MSSA based off toe culture. Patient was then found to have also osteomyelitis of the second digit of the right foot which was managed with antibiotics. Patient was seen by infectious disease, Dr. Lopez, who had recommended if patient is going to receive IV antibiotics for osteomyelitis for her to be Rocephin 2 g IV daily and doxycycline 100 mg oral twice daily for 6 weeks. The end of day antibiotic w was calculated to be June 10, 2025. Patient is to continue with these medications and also get weekly labs including CMP, ESR, CRP. For patient's management of diabetes, patient was seen by registered dietitian and patient was able to get CGM for outpatient which was the sirena garcia. Patient was continued on diabetes management and was given diabetic education. Patient is also to get wound care outpatient. Patient was then discharged with the following instructions. Discharge Instructions: Follow up at [facility], [address] [place] [address]. Call [phone] for appointment Last day of Abx June 10, 2025. Pt will require 6 weeks of abx including Rocephin 2g IV daily and Doxycycline 100 mg by mouth twice a day Pt will also need weekly labs including CBC, ESR and CRP Follow up with your PCP within one week Take medicines as prescribed We are prescribing your a new machine for continuous glucose monitoring, (CGM), use as directed Return to ED if your symptoms worsen or return Wound care: 1)Right great toe amputation site: cleanse with NS, pat dry, apply santyl to to wound bed, adaptic, fluff, and wrap with kerlix. Change Daily Right Heel weight bearing only. Avoid tight fitting shoes or foot wear until wound is healed Problem list: #Osteomyelitis of right foot S/P amputation of 1st toe #OM of second digit of right foot #Diabetic foot with gangrene #MSSA R toe culture #Insulin dependent type II Diabetes mellitus #Hypokalemia Patient seen and care discussed with my attending physician, Dr. Carlos Orr, PGY-2 Time Spent with Patient Time attestation: Total time spent providing and/or coordinating discharge services: Time spent: Less than 30 minutes Exam Vital Signs Temp Pulse Resp BP Pulse Ox O2 Del Method O2 Flow Rate 97.9 F 75 18 110/72 94 L Room Air 2 05/04/25 08:00 05/04/25 08:00 05/04/25 08:00 05/04/25 08:00 05/04/25 08:00 05/04/25 08:00 04/29/25 09:08 Narrative Exam General: AAOx3 HEENT: Normocephalic, atraumatic, mucous membranes moist. Heart: Regular rate and rhythm, no murmurs. Lungs: Clear to auscultation with no wheezing or crackles. Abdomen: Soft, nondistended, nontender, positive bowel sounds. ?No guarding or rebound tenderness. Neurologic: Alert and oriented x3, no gross neurological deficit, and patient able to move all 4 extremities. Extremities: Right foot is wrapped in dressing Skin: No rash or ecchymoses. Discharge Plan Plan Patient Disposition: Xfer Skilled Nsg Fac (SNF) Disposition Comment: [facility] Care Plan Goals: Discharge Instructions: Follow up at [facility], [address] [place] [address]. Call [phone] for appointment Last day of Abx June 10, 2025. Pt will require 6 weeks of abx including Rocephin 2g IV daily and Doxycycline 100 mg by mouth twice a day Pt will also need weekly labs including CBC, ESR and CRP Follow up with your PCP within one week Take medicines as prescribed We are prescribing your a new machine for continuous glucose monitoring, (CGM), use as directed Return to ED if your symptoms worsen or return Wound care: 1)Right great toe amputation site: cleanse with NS, pat dry, apply santyl to to wound bed, adaptic, fluff, and wrap with kerlix. Change Daily Right Heel weight bearing only. Avoid tight fitting shoes or foot wear until wound is healed Prescriptions/Referrals Prescriptions/Med Rec: New ceftriaxone 2 gram recon soln 2 g IV QDAY doxycycline hyclate 100 mg tablet 100 mg PO BID 42 Days Qty: 84 0RF (DME) pen needle, diabetic [Comfort EZ Pen [place]] 32 gauge x 1/4 needle See Rx Instructions .Route Qty: 100 0RF Rx Instructions: As directed alcohol swabs [Alcohol Prep Pads] Pads, Medicated 1 pad topical .as directed Qty: 100 0RF Rx Instructions: Apply as directed (DME) blood-glucose meter [Accu-Chek Guide Me Glucose Mtr] Misc See Rx Instructions .Route Qty: 1 0RF Rx Instructions: As directed (DME) Accu-Chek Guide test strips Strip See Rx Instructions .Route Qty: 100 0RF Rx Instructions: As directed Continued (DME) lancets 26 gauge misc See Rx Instructions .Route Qty: 100 0RF Rx Instructions: As directed insulin lispro [Humalog KwikPen Insulin] 100 unit/mL insulin pen 2 unit SUBCUT TID Patient Comments: INJECT 2-3 UNITS UNDER THE SKIN WITH MEALS ON SLIDING SCALE insulin glargine [Lantus Solostar U-100 Insulin] 100 unit/mL (3 mL) insulin pen 15 unit SUBCUT DAILY Patient Comments: ADMINISTER 15 UNITS UNDER THE SKIN EVERY DAY Referrals: No Primary/Family,Physician [Primary Care Provider] - Patient/Caregiver Discharge Instructions Discharge Activity: activity as tolerated Education Materials: CGM, Managing Type 2 Diabetes, Diabetes and Kidney Disease, Preventing Surgical Site Infections Print Language: Thai Stand Alone Forms: G[employer]el Award Info., Patient Portal Info Letter Discharge Order Discharge Orders: Discharge (Routine); Ordered 05/04/25 Ordered By: Shameka Orr Quality Discharge Quality Measures VTE prophylaxis (Lovenox) Attestestation MD Attestation I attest that I was physically present for the evaluation, physical examination, lab and imaging review of the patient with the residents. I discussed the case with the residents and agree with the findings and plans of care as documented above. Maritza Gonzalez MD
[2025-05-04] MEDS: INSULIN LISPRO (AdmeLOG) 1 UNIT/0.01 ML UNIT SC (11:38)
[2025-05-04] MEDS: COLLAGENASE OINT 30 GM TUBE TOP (11:56)
[2025-05-04 12:00] VITALS: BP 112/70; PULSE 93; RESP 18; TEMP 36.2; O2SAT 97
== END 2025-05-04 13:30 | disposition skilled nursing facility (03) | DRG 617 ==
LOC: SERX 15:26 → SERHOLD 15:38 → S3SX 20:00
PROVIDERS: Internal Medicine; Physician Assistant; Surgery; Admitting Provider Internal Medicine; Emergency Provider Emergency Medicine; Visit Provider Student in an Organized Health Care Education/Training Program
PROC: (CPT 28820; principal; 2025-04-29 07:30)
DX: E11.69 Type 2 diabetes mellitus with other specified complication (principal); E11.52 Type 2 diabetes mellitus with diabetic peripheral angiopathy with gangrene; L03.115 Cellulitis of right lower limb; M86.8X7 Other osteomyelitis, ankle and foot; E11.65 Type 2 diabetes mellitus with hyperglycemia; E87.6 Hypokalemia; Z87.891 Personal history of nicotine dependence; Z79.4 Long term (current) use of insulin; B95.61 Methicillin susceptible Staphylococcus aureus infection as the cause of diseases classified elsewhere
CPT/HCPCS: 36415; 73630; 80053; 80061; 80074; 80202; 80307; 81001; 83036; 83735; 84100; 84443; 85025; 85652; 86140; 86703; 87040; 87070; 87075; 87077; 87086; 87186; 87205; 87811; 93925; 93970; 96365; 96372; 97161; 99285; A4217; A4649; C1751; C1894; J0696; J1642; J1650; J1815; J1885; J2250; J2543; J2704; J3010; J3370; J3372; J3490; J7050; J7999; A9270

== ENCOUNTER → 2025-05-20 | Outpatient (CLI) | payer MEDICARE, SELFPAY | END | disposition home or self-care (01) | PROVIDERS: PCP Hospitalist; Referring Provider Hospitalist; Visit Provider Physician Assistant | DX: T81.89XA Other complications of procedures, not elsewhere classified, initial encounter (principal); S98.111D Complete traumatic amputation of right great toe, subsequent encounter; X58.XXXD Exposure to other specified factors, subsequent encounter; E11.69 Type 2 diabetes mellitus with other specified complication; Z79.4 Long term (current) use of insulin; Z79.84 Long term (current) use of oral hypoglycemic drugs; R56.9 Unspecified convulsions; Z87.891 Personal history of nicotine dependence; S09.90XS Unspecified injury of head, sequela; X58.XXXS Exposure to other specified factors, sequela | CPT/HCPCS: 97597; 87070; 87075; 87205; 99212; A9270; G0463 ==

== ENCOUNTER 2025-05-23 14:08 | Outpatient (AMB) | payer MEDICARE, SELFPAY ==
[2025-05-23 14:26] VITALS: BP 125/83; PULSE 75; RESP 18; TEMP 36.8; O2SAT 97; BMI 33.4
--- NOTE | 2025-05-23 14:26 | PD.GSCLVISIT ---
Vital Signs - [facility] Clinic 05/23/25 14:26 Height 1.73 m Height Method Stated Weight 99.79 kg Weight Measurement Method Estimated by Patient BMI 33.4 BP 125/83 Blood Pressure Source Automatic Cuff Blood Pressure Location Right Upper Arm Position Sitting Respiration 18 Pulse 75 Pulse Source Monitor Temp 98.2 F Temp Source Temporal Artery Scan Pulse Oximetry (%) 97 Oxygen Delivery Method Room Air Med/Allergies Allergies & Medications Allergies No Known Allergies Allergy (Verified 05/23/25 14:28) Medication Reconciliation lancets 26 gauge #100 ea 11/26/23 [Rx Confirmed 05/23/25] insulin glargine 100 unit/mL (3 mL) subcutaneous pen (Lantus Solostar U-100 Insulin) 15 unit subcut DAILY 04/28/25 [History Confirmed 05/23/25] insulin lispro 100 unit/mL subcutaneous pen (Humalog KwikPen (U-100) Insulin) 2 unit subcut TID 04/28/25 [History Confirmed 05/23/25] ceftriaxone 2 gram intravenous solution 2 g IV QDAY 05/03/25 [Rx Confirmed 05/23/25] doxycycline hyclate 100 mg tablet 100 mg PO BID 6 weeks #84 tabs 05/03/25 [Rx Confirmed 05/23/25] alcohol swabs (Alcohol Prep Pads) 1 pad topical .as directed #100 ea 05/04/25 [Rx Confirmed 05/23/25] blood sugar diagnostic (Accu-Chek Guide test strips) #100 ea 05/04/25 [Rx Confirmed 05/23/25] blood-glucose meter (Accu-Chek Guide Me Glucose Meter) #1 ea 05/04/25 [Rx Confirmed 05/23/25] pen needle, diabetic 32 gauge x 1/4 (Comfort EZ Pen [place]) #100 ea 05/04/25 [Rx Confirmed 05/23/25] MA Intake Visit Data Collection New Patient or Established: Established Patient (seen at [facility] within 3 years) Reason for Visit:: TOE FOLLOW UP Pain Present Currently: Yes Pain Location: Knee Pain scale:: 4 Pain Scale Used: Bart/Numerical Pre Owned Sales Consultant Required: No PCP or OBGYN visit in last 3 months: Yes Hx Now: No Do You Feel Safe at Home: Yes Authorities Contacted: N/A Smoking Status Smoking Status: Former smoker Immunization / Flu Flu Vaccine in the Last 12 Months: Yes Flu Vaccine Exclusion Criteria: Already Received Past Medical History Past Medical History NEUROLOGIC: Negative Neurological Disorders or Seizures CARDIAC: Negative Cardiac Disorders or Congestive Heart Failure RESPIRATORY: Negative Chronic Obstructive Pulmonary Disease (COPD) or Asthma GASTROINTESTINAL: Negative Gastrointestinal Disorders GENITOURINARY: Negative Genitourinary Disorders or Renal Disease MUSCULOSKELETAL: Positive Musculoskeletal Disorders ENDOCRINE: Positive Diabetes Mellitus Type 2; Negative Endocrine Disorders or Diabetes Mellitus Type 1 HEMATOLOGIC: Negative Blood Disorders or Sickle Cell Disease PSYCHO/SOCIAL: Positive Bipolar Disorder, Anxiety and Post Traumatic Stress Disorder OTHER HISTORY: Negative Blood Transfusions, Blood Transfusion Reaction or Anesthesia Reactions Surgical History SURGICAL: Positive Tonsillectomy and Section Social History SMOKING STATUS: Smoking status: Former smoker SUBSTANCE USE: Substance use type: does not use ALCOHOL: Alcohol Intake: Never HOUSING: Housing: House LIVES WITH: Lives With: Family Travel Risk Travel Hx Recent Travel: No HPI HPI Narrative 59F with DMII presenting with osteomyelitis of the first and second R toes s/p R great toe amputation 04/29 here for planned follow up. Pt reports feeling well overall, she has no pain and has been walking with a surgical shoe. She went to wound care last week and is being discharged from her rehab tomorrow. Pt reports her blood sugars have been well controlled ROS Review of Systems Systems Reviewed: All systems reviewed, normal except as documented Objective/Exam General General Appearance: alert, cooperative and well groomed Resp Respiratory exam: Absent respiratory distress Extremities Extremities exam: Present other (right great toe wound bed with minimal fibrinous tissue, some beefy red granulation tissue at the base, no erythema, no fluctuance or tenderness) Assessment & Plan Diagnosis / Problem List (1) Osteomyelitis: Status: Acute Assessment & Plan: 59F with DMII presenting with osteomyelitis of the first and second R toes s/p R great toe amputation 04/29, gradually recovering Plan: Continue to follow up at Wound Healing F/u in 2 mos Office Procedures GNS Level of Care Nursing/Assessment Patient Status: Established Patient Nursing Assessment/Reassesment: Medication Reconciliation, Update PMH in EMR and Vital Signs Coordination of Care: Complex Care and Chronic Disease 1-5, Education Complex Pt/Fam, Consent,records obtained, informed consent, Results/Orders obtained and Staff clarify orders Established Patient Charge Established Patient Point Assignment: 95 Established Patient Point Charge: EP Level 3 (80-115) Patient Portal Questionaires Social History Living Situation History Housing: House Tobacco History Smoking Status: Former smoker Alcohol History Alcohol Intake: Never Domestic Abuse History Do You Feel Safe at Home: Yes Review of Systems Report any current symptoms Only answer those that you have currently: Past Medical History Past Medical History Have you ever been diagnosed with any of the following: Neurological Problems Seizures: No Cardiology Problems Congestive Heart Failure: No Respiratory Problems Chronic Obstructive Pulmonary Disease (COPD): No Asthma: No Genital/Urinary Problems Renal Disease: No Endocrine Problems Diabetes Mellitus Type 1: No Diabetes Mellitus Type 2: Yes Blood Problems Sickle Cell Disease: No Psychologic Problems Bipolar Disorder: Yes Anxiety: Yes Post Traumatic Stress Disorder: Yes Other Problems Blood Transfusions: No Blood Transfusion Reaction: No Anesthesia Reactions: No
== END 2025-05-23 14:45 | disposition home or self-care (01) ==
LOC: HODSRG 14:08
PROVIDERS: Supervising Provider Surgery; Visit Provider Surgery
DX: M86.8X7 Other osteomyelitis, ankle and foot (principal); E11.9 Type 2 diabetes mellitus without complications; Z89.411 Acquired absence of right great toe
CPT/HCPCS: 99213; G0463

== ENCOUNTER → 2025-05-31 | Outpatient (CLI) | payer MEDICARE, SELFPAY ==
[2025-05-31 13:17] LABS: Basophils # (Auto) 0.1 Thou/mm3 (0.0-0.2); Basophils % (Auto) 1 % (0-2.5); Eosinophils # (Auto) 0.5 Thou/mm3 (0.0-0.5); Eosinophils % (Auto) 6 % (0-10); Hematocrit 41.6 % (36.0-46.0); Hemoglobin 13.5 g/dL (12.0-16.0); Immature Granulocytes Auto 0.07 Thou/mm3 (0.00-0.00); Lymphocytes # (Auto) 1.8 Thou/mm3 (1.0-4.8); Lymphocytes % (Auto) 21 % (10-50); Mean Corpuscular HGB Conc 32.5 g/dl (31.0-37.0); Mean Corpuscular Hemoglobin 28.7 pg (25.0-35.0); Mean Corpuscular Volume 89 fL (80-100); Monocytes # (Auto) 0.5 Thou/mm3 (0.0-0.8); Monocytes % (Auto) 6 % (0-12); Neutrophils # (Auto) 5.6 Thou/mm3 (1.8-7.7); Neutrophils % (Auto) 66 % (37-80); Nucleated Red Blood Cell # 0.00 Thou/mm3 (0.00-0.00); Nucleated Red Blood Cell % 0 /100 WBC (0); Platelet Count 303 Thou/mm3 (140-440); RDW Standard Deviation 65.9 fL (36.4-46.3); Red Blood Count 4.70 Miln/mm3 (4.00-5.20); White Blood Count 8.4 Thou/mm3 (3.6-11.0)
[2025-05-31 13:39] LABS: Alanine Aminotransferase 10 U/L (10-49); Albumin, Serum 3.6 gm/dL (3.4-4.8); Albumin/Globulin Ratio 1.0 (1.2-2.2); Alkaline Phosphatase 98 U/L (46-116); Anion Gap 11 (7-16); Aspartate Amino Transferase 15 U/L (0-34); BUN/Creatinine Ratio 19 Ratio (12-20); Bilirubin,Total 0.2 mg/dL (0.3-1.2); Blood Urea Nitrogen 15 mg/dL (9-23); Calcium 9.2 mg/dL (8.3-10.6); Calcium (Corrected) 9.5 mg/dL (8.5-10.1); Carbon Dioxide 23.8 mMol/L (20.0-31.0); Chloride 108 mMol/L (98-107); Creatinine (Component) 0.8 mg/dL (0.6-1.3); Globulin 3.5 gm/dL (2.3-3.5); Glucose 127 mg/dL (74-106); Osmolality,Calculated 287 (275-295); Potassium 4.2 mMol/L (3.4-5.1); Sodium 143 mMol/L (136-145); Total Protein 7.1 gm/dL (5.7-8.2); eGFR > 60 See Note
== END | disposition home or self-care (01) ==
PROVIDERS: PCP Internal Medicine; Referring Provider Internal Medicine; Visit Provider Internal Medicine
DX: M86.171 Other acute osteomyelitis, right ankle and foot (principal)
CPT/HCPCS: 36415; 80053; 85025

== ENCOUNTER → 2025-06-07 | Outpatient (CLI) | payer MEDICARE, SELFPAY ==
[2025-06-07 11:26] LABS: Basophils # (Auto) 0.1 Thou/mm3 (0.0-0.2); Basophils % (Auto) 1 % (0-2.5); Eosinophils # (Auto) 0.6 Thou/mm3 (0.0-0.5); Eosinophils % (Auto) 7 % (0-10); Hematocrit 42.9 % (36.0-46.0); Hemoglobin 13.7 g/dL (12.0-16.0); Immature Granulocytes Auto 0.05 Thou/mm3 (0.00-0.00); Lymphocytes # (Auto) 1.7 Thou/mm3 (1.0-4.8); Lymphocytes % (Auto) 21 % (10-50); Mean Corpuscular HGB Conc 31.9 g/dl (31.0-37.0); Mean Corpuscular Hemoglobin 28.6 pg (25.0-35.0); Mean Corpuscular Volume 90 fL (80-100); Monocytes # (Auto) 0.5 Thou/mm3 (0.0-0.8); Monocytes % (Auto) 6 % (0-12); Neutrophils # (Auto) 5.5 Thou/mm3 (1.8-7.7); Neutrophils % (Auto) 65 % (37-80); Nucleated Red Blood Cell # 0.00 Thou/mm3 (0.00-0.00); Nucleated Red Blood Cell % 0 /100 WBC (0); Platelet Count 353 Thou/mm3 (140-440); RDW Standard Deviation 65.2 fL (36.4-46.3); Red Blood Count 4.79 Miln/mm3 (4.00-5.20); White Blood Count 8.4 Thou/mm3 (3.6-11.0)
[2025-06-07 11:51] LABS: Alanine Aminotransferase 16 U/L (10-49); Albumin, Serum 3.8 gm/dL (3.4-4.8); Albumin/Globulin Ratio 1.2 (1.2-2.2); Alkaline Phosphatase 108 U/L (46-116); Anion Gap 11 (7-16); Aspartate Amino Transferase 21 U/L (0-34); BUN/Creatinine Ratio 14 Ratio (12-20); Bilirubin,Total 0.4 mg/dL (0.3-1.2); Blood Urea Nitrogen 14 mg/dL (9-23); Calcium 9.2 mg/dL (8.3-10.6); Calcium (Corrected) 9.4 mg/dL (8.5-10.1); Carbon Dioxide 23.5 mMol/L (20.0-31.0); Chloride 106 mMol/L (98-107); Creatinine (Component) 1.0 mg/dL (0.6-1.3); Globulin 3.3 gm/dL (2.3-3.5); Glucose 189 mg/dL (74-106); Osmolality,Calculated 284 (275-295); Potassium 4.2 mMol/L (3.4-5.1); Sodium 140 mMol/L (136-145); Total Protein 7.1 gm/dL (5.7-8.2); eGFR > 60 See Note
== END | disposition home or self-care (01) ==
LOC: SLDO 10:13
PROVIDERS: PCP Internal Medicine; Referring Provider Internal Medicine; Visit Provider Internal Medicine
DX: M86.171 Other acute osteomyelitis, right ankle and foot (principal)
CPT/HCPCS: 36415; 80053; 85025

== ENCOUNTER 2025-07-07 13:17 | Outpatient (AMB) | payer MEDICARE, SELFPAY ==
[2025-07-07 13:40] VITALS: BP 129/82; PULSE 96; RESP 18; TEMP 36.8; O2SAT 96; BMI 35.6
--- NOTE | 2025-07-07 13:40 | PD.GSCLVISIT ---
Vital Signs - [facility] 07/07/25 13:40 Height 1.73 m Height Method Stated Weight 106.849 kg Weight Measurement Method Standing Scale BMI 35.6 BP 129/82 Blood Pressure Source Automatic Cuff Blood Pressure Location Right Upper Arm Position Sitting Respiration 18 Pulse 96 Pulse Source Monitor Temp 98.3 F Temp Source Temporal Artery Scan Pulse Oximetry (%) 96 Oxygen Delivery Method Room Air Med/Allergies Allergies & Medications Allergies No Known Allergies Allergy (Verified 07/07/25 13:41) Medication Reconciliation lancets 26 gauge #100 ea 11/26/23 [Rx Confirmed 07/07/25] insulin glargine 100 unit/mL (3 mL) subcutaneous pen (Lantus Solostar U-100 Insulin) 15 unit subcut DAILY 04/28/25 [History Confirmed 07/07/25] insulin lispro 100 unit/mL subcutaneous pen (Humalog KwikPen (U-100) Insulin) 2 unit subcut TID 04/28/25 [History Confirmed 07/07/25] ceftriaxone 2 gram intravenous solution 2 g IV QDAY 05/03/25 [Rx Confirmed 07/07/25] alcohol swabs (Alcohol Prep Pads) 1 pad topical .as directed #100 ea 05/04/25 [Rx Confirmed 07/07/25] blood sugar diagnostic (Accu-Chek Guide test strips) #100 ea 05/04/25 [Rx Confirmed 07/07/25] blood-glucose meter (Accu-Chek Guide Me Glucose Meter) #1 ea 05/04/25 [Rx Confirmed 07/07/25] pen needle, diabetic 32 gauge x 1/4 (Comfort EZ Pen [place]) #100 ea 05/04/25 [Rx Confirmed 07/07/25] MA Intake Visit Data Collection New Patient or Established: Established Patient (seen at [facility] within 3 years) Reason for Visit:: F/U 6 WEEKS Pain Present Currently: No Pain scale:: 0 Pain Scale Used: [place]/Numerical Explosive Man Required: No PCP or OBGYN visit in last 3 months: Yes Hx Now: No Do You Feel Safe at Home: Yes Authorities Contacted: N/A Smoking Status Smoking Status: Former smoker Immunization / Flu Flu Vaccine in the Last 12 Months: No Flu Vaccine Exclusion Criteria: No Exclusion Criteria Past Medical History Past Medical History NEUROLOGIC: Negative Neurological Disorders or Seizures CARDIAC: Negative Cardiac Disorders or Congestive Heart Failure RESPIRATORY: Negative Chronic Obstructive Pulmonary Disease (COPD) or Asthma GASTROINTESTINAL: Negative Gastrointestinal Disorders GENITOURINARY: Negative Genitourinary Disorders or Renal Disease MUSCULOSKELETAL: Positive Musculoskeletal Disorders ENDOCRINE: Positive Diabetes Mellitus Type 2; Negative Endocrine Disorders or Diabetes Mellitus Type 1 HEMATOLOGIC: Negative Blood Disorders or Sickle Cell Disease PSYCHO/SOCIAL: Positive Bipolar Disorder, Anxiety and Post Traumatic Stress Disorder OTHER HISTORY: Negative Blood Transfusions, Blood Transfusion Reaction or Anesthesia Reactions Surgical History SURGICAL: Positive Tonsillectomy and Section Social History SMOKING STATUS: Smoking status: Former smoker SUBSTANCE USE: Substance use type: does not use ALCOHOL: Alcohol Intake: Never HOUSING: Housing: House LIVES WITH: Lives With: Family Travel Risk Travel Hx Recent Travel: No HPI HPI Narrative 59F with DMII presenting with osteomyelitis of the first and second R toes s/p R great toe amputation 04/29 here for planned follow up. Pt reports feeling well overall, she is now at home and was getting wound care with [facility] but now is managing the wound along with her family. She denies any pain or drainage and would like to start taking longer walks. She states her finger sticks have been well controlled ROS Review of Systems Systems Reviewed: All systems reviewed, normal except as documented Objective/Exam General General Appearance: alert, cooperative and well groomed Resp Respiratory exam: Absent respiratory distress Extremities Extremities exam: Present other (right foot great toe wound with beefy red granulation tissue at base, minimal fibrinous tissue at the edges, no necrotic tissue, no fluctuance or drainage) Assessment & Plan Diagnosis / Problem List (1) Osteomyelitis: Status: Acute Assessment & Plan: 59F with DMII presenting with osteomyelitis of the first and second R toes s/p R great toe amputation 04/29 here for planned follow up, recovering well overall. Pt has no signs of active infection but is agreeable to continued follow up at Wound Healing Plan: Refer to Wound Healing F/u as needed Orders: Referrals Wound Healing M86.9 - Osteomyelitis, unspecified Office Procedures GNS Level of Care Nursing/Assessment Patient Status: Established Patient Nursing Assessment/Reassesment: Medication Reconciliation, Update PMH in EMR and Vital Signs Coordination of Care: Complex Care and Chronic Disease 1-5, Education Complex Pt/Fam, Consent,records obtained, informed consent, Results/Orders obtained and Staff clarify orders Established Patient Charge Established Patient Point Assignment: 95 Established Patient Point Charge: EP Level 3 (80-115) Patient Portal Questionaires Social History Living Situation History Housing: House Tobacco History Smoking Status: Former smoker Alcohol History Alcohol Intake: Never Domestic Abuse History Do You Feel Safe at Home: Yes Review of Systems Report any current symptoms Only answer those that you have currently: Past Medical History Past Medical History Have you ever been diagnosed with any of the following: Neurological Problems Seizures: No Cardiology Problems Congestive Heart Failure: No Respiratory Problems Chronic Obstructive Pulmonary Disease (COPD): No Asthma: No Genital/Urinary Problems Renal Disease: No Endocrine Problems Diabetes Mellitus Type 1: No Diabetes Mellitus Type 2: Yes Blood Problems Sickle Cell Disease: No Psychologic Problems Bipolar Disorder: Yes Anxiety: Yes Post Traumatic Stress Disorder: Yes Other Problems Blood Transfusions: No Blood Transfusion Reaction: No Anesthesia Reactions: No
== END 2025-07-07 13:56 | disposition home or self-care (01) ==
LOC: HODSRG 13:17
PROVIDERS: Supervising Provider Surgery; Visit Provider Surgery
DX: M86.9 Osteomyelitis, unspecified (principal); Z89.411 Acquired absence of right great toe; E11.9 Type 2 diabetes mellitus without complications
CPT/HCPCS: 99213; G0463

== ENCOUNTER → 2025-07-19 | Outpatient (CLI) | payer MEDICARE, SELFPAY | END | disposition home or self-care (01) | PROVIDERS: PCP Chiropractor; Referring Provider Chiropractor; Visit Provider Surgery | DX: T81.89XA Other complications of procedures, not elsewhere classified, initial encounter (principal); S98.111D Complete traumatic amputation of right great toe, subsequent encounter; X58.XXXD Exposure to other specified factors, subsequent encounter; E11.69 Type 2 diabetes mellitus with other specified complication; Z79.4 Long term (current) use of insulin; Z79.84 Long term (current) use of oral hypoglycemic drugs; R56.9 Unspecified convulsions; Z87.891 Personal history of nicotine dependence; S09.90XS Unspecified injury of head, sequela; X58.XXXS Exposure to other specified factors, sequela | CPT/HCPCS: 11042; 73630; 99212; A9270; G0463 ==

== ENCOUNTER → 2025-07-19 | Outpatient (CLI) | payer MEDICARE, SELFPAY ==
--- NOTE | 2025-07-19 15:23 | XR_ITS ---
Examination: Foot, right, 3 views Technique: AP, oblique, lateral views foot, 3 views Date and time of exam: July 19, 2025 1604 hrs. Indications: History osteomyelitis distal phalanx first digit status post amputation April 2025 Findings: Prominent soft tissue swelling about the amputated proximal phalanx first digit Suspicious for cortical bone destruction involving the distal aspect middle phalanx second digit Soft tissue vascular calcification Impression: Prominent soft tissue swelling about the amputated first digit Osteomyelitis middle phalanx second digit Recommend MRI foot without contrast follow-up to assess full extent of osteomyelitis
== END | disposition home or self-care (01) ==
PROVIDERS: PCP Physician Assistant; Referring Provider Surgery; Visit Provider Surgery
DX: M86.8X7 Other osteomyelitis, ankle and foot (principal); M25.474 Effusion, right foot
CPT/HCPCS: 73630

== ENCOUNTER 2025-07-22 22:34 | Emergency (ER) | payer MEDICARE, SELFPAY ==
--- NOTE | 2025-07-22 22:38 | PD.EDNV ---
Nausea/Vomit./Diarrhea-RME/HPI General Chief complaint: Nausea/Vomiting/Diarrhea Stated complaint: VOMITING Arrival date/time: 07/22/25 22:34 RME / HPI RME / HPI Narrative: See [facility] for Dr. Fraser's HPI documentation. Related Data Home Medications ?Medication ?Instructions ?Recorded ?Confirmed insulin glargine 100 unit/mL (3 15 unit subcut DAILY 04/28/25 07/07/25 mL) subcutaneous pen (Lantus Solostar U-100 Insulin) insulin lispro 100 unit/mL 2 unit subcut TID 04/28/25 07/07/25 subcutaneous pen (Humalog KwikPen (U-100) Insulin) Previous Rx's ?Medication ?Instructions ?Recorded lancets 26 gauge #100 ea 11/26/23 ceftriaxone 2 gram intravenous 2 g IV QDAY 05/03/25 solution alcohol swabs (Alcohol Prep Pads) 1 pad topical .as directed #100 ea 05/04/25 blood sugar diagnostic (Accu-Chek #100 ea 05/04/25 Guide test strips) blood-glucose meter (Accu-Chek #1 ea 05/04/25 Guide Me Glucose Meter) pen needle, diabetic 32 gauge x #100 ea 05/04/25 1/4 (Comfort EZ Pen [place]) Allergies Allergy/AdvReac Type Severity Reaction Status Date / Time No Known Allergies Allergy Verified 07/22/25 22:35 Review of Systems Review of Systems Systems Reviewed: All systems reviewed, normal except as documented Past Medical History Past Medical History NEUROLOGIC: Negative Neurological Disorders or Seizures CARDIAC: Negative Cardiac Disorders or Congestive Heart Failure RESPIRATORY: Negative Chronic Obstructive Pulmonary Disease (COPD) or Asthma GASTROINTESTINAL: Negative Gastrointestinal Disorders GENITOURINARY: Negative Genitourinary Disorders or Renal Disease MUSCULOSKELETAL: Positive Musculoskeletal Disorders ENDOCRINE: Positive Diabetes Mellitus Type 2; Negative Endocrine Disorders or Diabetes Mellitus Type 1 HEMATOLOGIC: Negative Blood Disorders or Sickle Cell Disease PSYCHO/SOCIAL: Positive Bipolar Disorder, Anxiety and Post Traumatic Stress Disorder OTHER HISTORY: Negative Blood Transfusions, Blood Transfusion Reaction or Anesthesia Reactions Surgical History SURGICAL: Positive Tonsillectomy and Section Social History SMOKING STATUS: Never smoker SUBSTANCE USE: does not use ED Exam Narrative Physical exam: See MDM for Dr. Fraser's physical exam documentation. Course Quality Measures none Nausea/Vomiting/Diarrhea [facility] Narrative [facility] Narrative:: This section includes all my notes and documentations, including HPI, PE, and ED course. Umair Fraser MD HPI: 59yo female with history of DM ROS: All negative except as documented in HPI. Physical Exam: General: Alert and oriented. No acute distress when remaining still. Eyes: Conjunctivae and lids clear. ENT: No nasal congestion. Neck: Supple. Heart: RRR. Lungs: No respiratory distress. Good air movement. No rhonchi, wheezing, rales. Abdomen: Soft and nontender. Normal bowel sounds. No distension. No rebound or guarding. Back: No CVA tenderness. Skin: Warm and dry. Neuro: Alert and oriented X 3. I reviewed all diagnostic test results. My interpretation of the EKG is My interpretation of the chest x-ray is My review of the CT report is Blood tests and urine tests At this point, diagnoses include Treatment here included Significant improvement Not yet done: I discussed the case with our hospitalist. About the presentation and exam and diagnostics and treatments here. And need of further care in the hospital. Will accept the patient. Not yet done: Based on my best medical judgment, made decision no further evaluation or treatment indicated at this time. Patient understands and agrees to the discharge instructions customized and printed, see below. Umair Fraser MD Patient data External records reviewed:: [facility] previous records (Per chart review, patient was admitted here on 04/28/25 for osteomyelitis.) Clinical information provided by:: patient Social determinants that could affect healthcare access:: none Patient has the following chronic illnesses:: DM How is presenting disease/condition affected by chronic disease/condition?: exacerbated by Evaluation data The following diagnostics were reviewed and interpreted by me:: lab results Lab and/or radiology exams considered but not ordered:: none Discharge Plan Prescriptions/Referrals Prescriptions/Med Rec: No Action (DME) lancets 26 gauge misc See Rx Instructions .Route Qty: 100 0RF Rx Instructions: As directed insulin lispro [Humalog KwikPen Insulin] 100 unit/mL insulin pen 2 unit SUBCUT TID Patient Comments: INJECT 2-3 UNITS UNDER THE SKIN WITH MEALS ON SLIDING SCALE insulin glargine [Lantus Solostar U-100 Insulin] 100 unit/mL (3 mL) insulin pen 15 unit SUBCUT DAILY Patient Comments: ADMINISTER 15 UNITS UNDER THE SKIN EVERY DAY ceftriaxone 2 gram recon soln 2 g IV QDAY (DME) pen needle, diabetic [Comfort EZ Pen [place]onier] 32 gauge x 1/4 needle See Rx Instructions .Route Qty: 100 0RF Rx Instructions: As directed alcohol swabs [Alcohol Prep Pads] Pads, Medicated 1 pad topical .as directed Qty: 100 0RF Rx Instructions: Apply as directed (DME) blood-glucose meter [Accu-Chek Guide Me Glucose Mtr] Misc See Rx Instructions .Route Qty: 1 0RF Rx Instructions: As directed (DME) Accu-Chek Guide test strips Strip See Rx Instructions .Route Qty: 100 0RF Rx Instructions: As directed Patient/Caregiver Discharge Instructions Print Language: Amharic
[2025-07-22 22:58] VITALS: BP 173/93; PULSE 101; RESP 19; TEMP 37; O2SAT 96; BMI 34.7
--- NOTE | 2025-07-22 23:09 | PD.EDNV ---
Nausea/Vomit./Diarrhea-RME/HPI General Chief complaint: Nausea/Vomiting/Diarrhea Stated complaint: VOMITING Time Seen by Provider: 07/22/25 23:03 Arrival date/time: 07/22/25 22:34 RME / HPI RME / HPI Narrative: See [facility] for Dr. Fraser's HPI documentation. Related Data Home Medications ?Medication ?Instructions ?Recorded ?Confirmed insulin glargine 100 unit/mL (3 15 unit subcut DAILY 04/28/25 07/07/25 mL) subcutaneous pen (Lantus Solostar U-100 Insulin) insulin lispro 100 unit/mL 2 unit subcut TID 04/28/25 07/07/25 subcutaneous pen (Humalog KwikPen (U-100) Insulin) Previous Rx's ?Medication ?Instructions ?Recorded lancets 26 gauge #100 ea 11/26/23 ceftriaxone 2 gram intravenous 2 g IV QDAY 05/03/25 solution alcohol swabs (Alcohol Prep Pads) 1 pad topical .as directed #100 ea 05/04/25 blood sugar diagnostic (Accu-Chek #100 ea 05/04/25 Guide test strips) blood-glucose meter (Accu-Chek #1 ea 05/04/25 Guide Me Glucose Meter) pen needle, diabetic 32 gauge x #100 ea 05/04/25 1/4 (Comfort EZ Pen [place]) promethazine 25 mg tablet 25 mg PO TID PRN nausea and 07/23/25 vomiting #20 tabs Allergies Allergy/AdvReac Type Severity Reaction Status Date / Time No Known Allergies Allergy Verified 07/22/25 22:35 Review of Systems Review of Systems Systems Reviewed: All systems reviewed, normal except as documented ED Exam Narrative Physical exam: See [facility] for Dr. Fraser's physical exam documentation. Course Quality Measures none Orders Category Date Time Status Bedside COVID-19 Antigen Test NOW Care 07/22/25 23:09 Active Bedside Influenza A&B Antigen Test NOW Care 07/22/25 23:09 Completed Glucose [Bedside Blood Glucose] NOW Care 07/23/25 01:48 Active Saline [Insert IV] NOW Care 07/22/25 23:11 Active Straight [In and Out Catheter] X1 Care 07/22/25 23:[address] abdomen pelvis wo con Stat Exams 07/22/25 23:14 Taken Amylase Stat Lab 07/22/25 23:32 Completed Bilirubin,Direct Stat Lab 07/22/25 23:32 Completed CBC Stat Lab 07/22/25 23:32 Completed CMP [Comprehensive Metabolic Panel] Stat Lab 07/22/25 23:32 Completed Magnesium Stat Lab 07/22/25 23:32 Completed UA, C/S IF [Urinalysis, C/S if Indicated] Stat Lab 07/23/25 00:52 Completed Urine Culture Stat Lab 07/23/25 00:52 Received Ketorolac Inj [Toradol Inj] Med 07/22/25 23:12 Discontinued 30 mg IVP X1 ONE Magnesium Sulfate 1 gm Ivpb [Magnesium Sulfate Ivpb] Med 07/23/25 00:31 Discontinued 1 gm in 100 ml IV X1 Promethazine Inj [Phenergan Inj] 25 mg Med 07/22/25 23:12 Discontinued Sodium Chloride 0.9% [Ns] 50 ml IV X1 Sodium Chloride 0.9% 1000 ml [Ns] 1,000 ml Med 07/22/25 23:12 Discontinued IV 999 mls/hr Sodium Chloride 0.9% 1000 ml [Ns] 1,000 ml Med 07/23/25 00:32 Discontinued IV 999 mls/hr Sodium Chloride 0.9% 1000 ml [Ns] 1,000 ml Med 07/23/25 01:23 Active IV 999 mls/hr Vital Signs Vital signs: Vital Signs Temperature 98.6 F 07/22/25 22:58 Pulse Rate 101 H 07/22/25 22:58 Respiratory Rate 19 07/22/25 22:58 Blood Pressure 173/93 H 07/22/25 22:58 Pulse Oximetry (%) 96 07/22/25 22:58 Oxygen Delivery Method Room Air 07/22/25 22:58 Nausea/Vomiting/Diarrhea MDM Narrative MDM Narrative:: This section includes all my notes and documentations, including HPI, PE, and ED course. Umair Fraser MD HPI: 59yo female with history of DM here with nausea, vomiting, and diarrhea for the last 12 hours. No abdominal pain or fever. No other complaints reported. ROS: All negative except as documented in HPI. Physical Exam: General: Alert and oriented. Appearance of malaise noted. Eyes: Conjunctivae and lids clear. ENT: No nasal congestion. Neck: Supple. Heart: RRR. Lungs: No respiratory distress. Good air movement. No rhonchi, wheezing, rales. Abdomen: Soft with equivocal tenderness, difficult to localize. Normal bowel sounds. No distension. No rebound or guarding. Back: No CVA tenderness. Skin: Warm and dry. Neuro: Alert and oriented X 3. I reviewed all diagnostic test results. My review of the CT abdomen pelvis report is enteric colitis. Blood and urine tests remarkable for WBC 16.5 and Mg 1.6. COVID/influenza negative. At this point, diagnoses include: Stomach flu Treatment here included: Toradol 30 mg IV IV fluid MgSO4 1 gram IV Promethazine 25 mg IV Significant improvement noted. Recommended supportive care. Based on my best medical judgment, made decision no further evaluation or treatment indicated at this time. Patient understands and agrees to the discharge instructions customized and printed, see below. Discharge Instructions from Dr. Fraser: 1. After evaluation, you have stomach flu. See attached handout on gastroenteritis. 2. This is caused by virus germs. And we do not have good medications to kill the virus germs. But your immune system will fight it off. 3. Your job is to stay hydrated. Phenergan for nausea/vomiting. Increase oral fluid and maintain clear urine. If dark or yellow, increase oral fluid. 4. Do not take any medications to stop your diarrhea. But try to replenish the fluid and electrolytes you are losing. 5. Some good choices are water (but not only water because it will cause electrolyte abnormalities), sports drinks like Gatorade (with less sugar content), coconut water, chicken stock, and other fluid with electrolytes (like Pedialyte). 6. See your private doctor on 07/25/2025 if not completely better. 7. Seek immediate medical care with worsening or with any concerns. Umair Fraser MD Patient data External records reviewed:: [facility] previous records (Per chart review, patient was admitted here on 04/28/25 for osteomyelitis.) Clinical information provided by:: patient Social determinants that could affect healthcare access:: none Patient has the following chronic illnesses:: DM How is presenting disease/condition affected by chronic disease/condition?: exacerbated by Evaluation data The following diagnostics were reviewed and interpreted by me:: lab results Lab and/or radiology exams considered but not ordered:: none Interpretation Summary: I reviewed all diagnostic test results. My review of the CT abdomen pelvis report is enteric colitis. Blood and urine tests remarkable for WBC 16.5 and Mg 1.6. COVID/influenza negative. Medications / Prescriptions Medications / Prescriptions considered but not ordered:: none Medication administrations:: Medication Administration History Sodium Chloride (Ns) 1,000 mls @ 999 mls/hr IV .Q1H1M ONE Stop: 07/23/25 02:23 Last Admin: 07/23/25 01:36 Dose: 999 mls/hr Documented By: ALEXA Discontinued Medications Promethazine HCl 25 mg/ Sodium (Chloride) 51 mls @ 2.5 mls/min IV X1 ONE; Protocol Stop: 07/22/25 23:32 Last Infusion: 07/23/25 00:55 Dose: Infused Documented By: Admin: 07/23/25 00:21 Dose: 2.5 mls/min Documented By: ALEXA Sodium Chloride (Ns) 1,000 mls @ 999 mls/hr IV .Q1H1M ONE Stop: 07/23/25 00:12 Last Infusion: 07/23/25 01:32 Dose: Infused Documented By: Admin: 07/23/25 00:20 Dose: 999 mls/hr Documented By: ALEXA Magnesium Sulfate/Dextrose (Magnesium Sulfate Ivpb) 1 gm in 100 mls @ 100 mls/hr IV X1 ONE Stop: 07/23/25 01:30 Last Admin: 07/23/25 01:16 Dose: 100 mls/hr Documented By: ALEXA Sodium Chloride (Ns) 1,000 mls @ 999 mls/hr IV .Q1H1M ONE Stop: 07/23/25 01:32 Last Admin: 07/23/25 00:55 Dose: Not Given Documented By: ALEXA Non-Admin Reason: Cancelled by Provider Ketorolac Tromethamine (Ketorolac Inj 30 Mg/Ml Vial) 30 mg IVP X1 ONE Stop: 07/22/25 23:13 Last Admin: 07/23/25 00:21 Dose: 30 mg Documented By: ALEXA Treatment here included: Toradol 30 mg IV IV fluid MgSO4 1 gram IV Promethazine 25 mg IV Consultations Consultation(s) initiated? (list below): No Diagnosis Nausea Differential Diagnosis: traveler's diarrhea, food poisoning, gastroenteritis, drug-induced nausea and vomiting and dehydration Most likely diagnosis given after review of the tests above:: Stomach flu Admission Indicated Admission indicated?: not indicated Explain why admission is indicated or not indicated:: With significant improvement and no condition needing emergent intervention, there was no indication for admission. Admission Request Was there a request for admission?: No Disposition Plan Disposition Plan: Discharge Discharge Attestation Discharge Attestation: The patient and all family members were given an opportunity to ask questions and understood the discharge instructions. Discharge instructions specifically effects, indications for sooner follow up or return to the emergency department, and the expected course of current diagnosis. Patient condition: Stable Discharge Plan Plan Patient Disposition: HOME (Self Care) Prescriptions/Referrals Prescriptions/Med Rec: New promethazine 25 mg tablet 25 mg PO TID PRN (Reason: nausea and vomiting) Qty: 20 0RF No Action (DME) lancets 26 gauge misc See Rx Instructions .Route Qty: 100 0RF Rx Instructions: As directed insulin lispro [Humalog KwikPen Insulin] 100 unit/mL insulin pen 2 unit SUBCUT TID Patient Comments: INJECT 2-3 UNITS UNDER THE SKIN WITH MEALS ON SLIDING SCALE insulin glargine [Lantus Solostar U-100 Insulin] 100 unit/mL (3 mL) insulin pen 15 unit SUBCUT DAILY Patient Comments: ADMINISTER 15 UNITS UNDER THE SKIN EVERY DAY ceftriaxone 2 gram recon soln 2 g IV QDAY (DME) pen needle, diabetic [Comfort EZ Pen [place]] 32 gauge x 1/4 needle See Rx Instructions .Route Qty: 100 0RF Rx Instructions: As directed alcohol swabs [Alcohol Prep Pads] Pads, Medicated 1 pad topical .as directed Qty: 100 0RF Rx Instructions: Apply as directed (DME) blood-glucose meter [Accu-Chek Guide Me Glucose Mtr] Misc See Rx Instructions .Route Qty: 1 0RF Rx Instructions: As directed (DME) Accu-Chek Guide test strips Strip See Rx Instructions .Route Qty: 100 0RF Rx Instructions: As directed Referrals: No Primary/Family,Physician [Primary Care Provider] - In 1 week Problem List Clinical Impression: Stomach flu Patient/Caregiver Discharge Instructions Discharge Activity: activity as tolerated Education Materials: ED Food Poison Or Gastroenteritis Additional Instructions: Discharge Instructions from Dr. Fraser: 1. After evaluation, you have stomach flu.? See attached handout on gastroenteritis. 2. This is caused by virus germs.? And we do not have good medications to kill the virus germs.? But your immune system will fight it off. 3. Your job is to stay hydrated.? Phenergan for nausea/vomiting.? Increase oral fluid and maintain clear urine.? If dark or yellow, increase oral fluid. 4. Do not take any medications to stop your diarrhea.? But try to replenish the fluid and electrolytes you are losing. 5. Some good choices are water (but not only water because it will cause electrolyte abnormalities), sports drinks like Gatorade (with less sugar content), coconut water, chicken stock, and other fluid with electrolytes (like Pedialyte). 6. See your private doctor on 07/25/2025 if not completely better.? 7. Seek immediate medical care with worsening or with any concerns. Print Language: Portuguese Stand Alone Forms: [employer] Award Info., Patient Portal Info Letter
--- NOTE | 2025-07-22 23:14 | XR_ITS ---
Examination: CT abdomen and pelvis without contrast. Coronal 3-D reconstructions. Sagittal 2-D reconstructions. Date and time of exam:July 22 25, 2358 hrs. Indications: Abdominal pain and vomiting onset today CTDI: vol (mGy): 12.81 DLP: (mGycm): 880 Technique: Axial images of the abdomen have been obtained, 3 mm slice thickness Intravenous contrast material has not been administered. Low dose protocols were performed. One or more of the following dose reduction techniques were used; automated exposure control, adjustment of the mA and/or KV according to patient size, use of iterative reconstruction technique. Findings: Liver is irregular in contour, hepatosplenomegaly Absent gallbladder No pancreatic or adrenal mass 15 mm right renal calculus, no hydronephrosis or ureteral calculi Multiple fluid distended small bowel loops No pericecal inflammatory change Colonic diverticulosis, minimal wall thickening of the colon Urinary bladder wall thickening up to 9 mm Moderate osteopenia Impression: Primary hepatocellular disease versus cirrhosis 15 mm nonobstructing right renal calculus Mild colitis pattern Fluid distended small bowel loops, consider ileus, hepatic enteropathy, clinical correlation advised If early small bowel obstruction is a clinical consideration recommend 3 way abdominal series follow-up
[2025-07-22 23:37] LABS: Basophils # (Auto) 0.1 Thou/mm3 (0.0-0.2); Basophils % (Auto) 0 % (0-2.5); Eosinophils # (Auto) 0.1 Thou/mm3 (0.0-0.5); Eosinophils % (Auto) 1 % (0-10); Hematocrit 48.5 % (36.0-46.0); Hemoglobin 15.5 g/dL (12.0-16.0); Immature Granulocytes Auto 0.18 Thou/mm3 (0.00-0.00); Lymphocytes # (Auto) 0.5 Thou/mm3 (1.0-4.8); Lymphocytes % (Auto) 3 % (10-50); Mean Corpuscular HGB Conc 32.0 g/dl (31.0-37.0); Mean Corpuscular Hemoglobin 27.4 pg (25.0-35.0); Mean Corpuscular Volume 86 fL (80-100); Monocytes # (Auto) 0.8 Thou/mm3 (0.0-0.8); Monocytes % (Auto) 5 % (0-12); Neutrophils # (Auto) 14.9 Thou/mm3 (1.8-7.7); Neutrophils % (Auto) 91 % (37-80); Nucleated Red Blood Cell # 0.00 Thou/mm3 (0.00-0.00); Nucleated Red Blood Cell % 0 /100 WBC (0); Platelet Count 428 Thou/mm3 (140-440); RDW Standard Deviation 50.5 fL (36.4-46.3); Red Blood Count 5.65 Miln/mm3 (4.00-5.20); White Blood Count 16.5 Thou/mm3 (3.6-11.0)
[2025-07-22 23:58] LABS: Alanine Aminotransferase 15 U/L (10-49); Albumin, Serum 5.0 gm/dL (3.4-4.8); Albumin/Globulin Ratio 1.1 (1.2-2.2); Alkaline Phosphatase 121 U/L (46-116); Amylase 118 U/L (30-118); Anion Gap 12 (7-16); Aspartate Amino Transferase 19 U/L (0-34); BUN/Creatinine Ratio 18 Ratio (12-20); Bilirubin,Direct 0.3 mg/dL (0.0-0.3); Bilirubin,Total 0.7 mg/dL (0.3-1.2); Blood Urea Nitrogen 20 mg/dL (9-23); Calcium 10.0 mg/dL (8.3-10.6); Calcium (Corrected) 10.0 mg/dL (8.5-10.1); Carbon Dioxide 21.4 mMol/L (20.0-31.0); Chloride 106 mMol/L (98-107); Creatinine (Component) 1.1 mg/dL (0.6-1.3); Estimated Creatinine Clearance 69.8 mL/min (>60); Globulin 4.4 gm/dL (2.3-3.5); Glucose 256 mg/dL (74-106); Magnesium 1.6 mg/dL (1.6-2.6); Osmolality,Calculated 289 (275-295); Potassium 4.4 mMol/L (3.4-5.1); Sodium 139 mMol/L (136-145); Total Protein 9.4 gm/dL (5.7-8.2); eGFR 57 See Note
[2025-07-23] MEDS: SODIUM CHLORIDE 0.9% 1000 ML 1,000 ML 999 ML IV ×2 (00:20→01:36)
[2025-07-23] MEDS: PROMETHAZINE INJ 25 MG in SODIUM CHLORIDE 0.9% 50 ML IV (00:21)
[2025-07-23] MEDS: KETOROLAC INJ 30 MG/ML VIAL IVP (00:21)
[2025-07-23 00:25] VITALS: BP 127/93; PULSE 93; RESP 18; O2SAT 95
[2025-07-23 01:00] LABS: Collection Type, Urine Clean Catch; RBC,Urine 0 /hpf (0-3); Squamous Epithelial Cell,Urine 0 /hpf (0-5); WBC,Urine 0 /hpf (0-5)
[2025-07-23 01:06] LABS: Bilirubin,Urine Negative (Negative); Blood,Urine Trace-Intact (Negative); Clarity,Urine Clear (Clear/Hazy); Color,Urine Red (Lt Yel-Yel); Glucose, Urine Negative (Negative); Ketones,Urine Negative (Negative); Leukocyte Esterase,Urine 1+ (Negative); Nitrite,Urine Negative (Negative); PH,Urine 6.0 (5.0-7.0); Protein,Urine Trace (Neg - Trace); Specific Gravity,Urine 1.020 (1.001-1.035); Urobilinogen,Urine 0.2 mg/dL (0.0-1.0)
[2025-07-23 01:07] LABS: Culture Indicated,Urine Yes
--- NOTE | 2025-07-23 01:18 | PRELIM_ITS ---
CT scan of the abdomen and pelvis without intravenous contrast (axial sections with sagittal and coronal reformats) July 22, 2025 2357 hours Clinical History: Abdominal pain Comparison: None available at the time of this report. Findings: The lung bases are clear. The pancreas, spleen and adrenals are unremarkable on this noncontrast study. Right renal cortical calcifications. No hydronephrosis. Status post cholecystectomy. Hepatomegaly. Irregular liver margins. Free stool throughout the colon associated with mild colonic wall thickening. A few prominent small bowel loops. Diverticulosis of the colon.The appendix is within normal limits. There is no mesenteric or retroperitoneal adenopathy. The urinary bladder is nondistended, limited evaluation. There is no free fluid or free air.The uterus and ovaries are within normal limits. The osseous structures are unremarkable. Coronary arteries calcifications. Impression: Probable mild enterocolitis. Hepatomegaly and cirrhosis. Report Electronically Signed By: Hira Talley 07/23/2025 1:17:57 AM [EST]
[2025-07-23 02:19] VITALS: BP 114/63; PULSE 35; RESP 18; TEMP 36.9; O2SAT 96
== END 2025-07-23 02:24 | disposition home or self-care (01) ==
PROVIDERS: Emergency Provider Emergency Medicine
DX: A08.4 Viral intestinal infection, unspecified (principal)
CPT/HCPCS: 36415; 74176; 80053; 81001; 82150; 82248; 83735; 85025; 87077; 87086; 87186; 87400; 87811; 96365; 96366; 96375; 99283; 99284; J1885; J2550; J3475; J7030

== ENCOUNTER → 2025-07-26 | Outpatient (CLI) | payer MEDICARE, SELFPAY | END | disposition home or self-care (01) | LOC: SWHD 13:45 | PROVIDERS: PCP Physician Assistant; Referring Provider Physician Assistant; Visit Provider Student in an Organized Health Care Education/Training Program | DX: T81.89XA Other complications of procedures, not elsewhere classified, initial encounter (principal); S98.111D Complete traumatic amputation of right great toe, subsequent encounter; X58.XXXD Exposure to other specified factors, subsequent encounter; E11.69 Type 2 diabetes mellitus with other specified complication; Z79.4 Long term (current) use of insulin; Z79.84 Long term (current) use of oral hypoglycemic drugs; R56.9 Unspecified convulsions; Z87.891 Personal history of nicotine dependence; S09.90XS Unspecified injury of head, sequela; X58.XXXS Exposure to other specified factors, sequela | CPT/HCPCS: 11042; A9270 ==

== ENCOUNTER → 2025-08-02 | Outpatient (CLI) | payer MEDICARE, SELFPAY | END | disposition home or self-care (01) | LOC: SWHD 14:35 | PROVIDERS: PCP Physician Assistant; Referring Provider Physician Assistant; Visit Provider Student in an Organized Health Care Education/Training Program | DX: T81.89XD Other complications of procedures, not elsewhere classified, subsequent encounter (principal); S98.111D Complete traumatic amputation of right great toe, subsequent encounter; X58.XXXD Exposure to other specified factors, subsequent encounter; E11.69 Type 2 diabetes mellitus with other specified complication; Z79.4 Long term (current) use of insulin; Z79.84 Long term (current) use of oral hypoglycemic drugs; R56.9 Unspecified convulsions; Z87.891 Personal history of nicotine dependence; S09.90XS Unspecified injury of head, sequela; X58.XXXS Exposure to other specified factors, sequela | CPT/HCPCS: 11042 ==

== ENCOUNTER → 2025-08-09 | Outpatient (CLI) | payer MEDICARE, SELFPAY | END | disposition home or self-care (01) | PROVIDERS: PCP Physician Assistant; Referring Provider Physician Assistant; Visit Provider Student in an Organized Health Care Education/Training Program | DX: T81.89XD Other complications of procedures, not elsewhere classified, subsequent encounter (principal); S98.111D Complete traumatic amputation of right great toe, subsequent encounter; X58.XXXD Exposure to other specified factors, subsequent encounter; L97.512 Non-pressure chronic ulcer of other part of right foot with fat layer exposed; E11.69 Type 2 diabetes mellitus with other specified complication; Z79.4 Long term (current) use of insulin; Z79.84 Long term (current) use of oral hypoglycemic drugs; R56.9 Unspecified convulsions; Z87.891 Personal history of nicotine dependence | CPT/HCPCS: 11042; A9270 ==

== ENCOUNTER → 2025-08-16 | Outpatient (CLI) | payer MEDICARE, SELFPAY | END | disposition home or self-care (01) | LOC: SWHD 14:24 | PROVIDERS: PCP Physician Assistant; Referring Provider Physician Assistant; Visit Provider Student in an Organized Health Care Education/Training Program | DX: T81.89XD Other complications of procedures, not elsewhere classified, subsequent encounter (principal); S98.111D Complete traumatic amputation of right great toe, subsequent encounter; X58.XXXD Exposure to other specified factors, subsequent encounter; L97.512 Non-pressure chronic ulcer of other part of right foot with fat layer exposed; E11.69 Type 2 diabetes mellitus with other specified complication; Z79.84 Long term (current) use of oral hypoglycemic drugs; Z79.4 Long term (current) use of insulin; R56.9 Unspecified convulsions; Z87.891 Personal history of nicotine dependence | CPT/HCPCS: 11042; A9270 ==

== ENCOUNTER → 2025-08-23 | Outpatient (CLI) | payer MEDICARE, SELFPAY | END | disposition home or self-care (01) | LOC: SWHD 13:37 | PROVIDERS: PCP Physician Assistant; Referring Provider Physician Assistant; Visit Provider Student in an Organized Health Care Education/Training Program | DX: T81.89XD Other complications of procedures, not elsewhere classified, subsequent encounter (principal); S98.111D Complete traumatic amputation of right great toe, subsequent encounter; X58.XXXD Exposure to other specified factors, subsequent encounter; L97.512 Non-pressure chronic ulcer of other part of right foot with fat layer exposed; E11.69 Type 2 diabetes mellitus with other specified complication; Z79.4 Long term (current) use of insulin; Z79.84 Long term (current) use of oral hypoglycemic drugs; R56.9 Unspecified convulsions; Z87.891 Personal history of nicotine dependence | CPT/HCPCS: 11042; A9270 ==

== ENCOUNTER → 2025-08-24 | Outpatient (CLI) | payer MEDICARE, SELFPAY | END | disposition home or self-care (01) | LOC: SLDO 14:41 | PROVIDERS: Referring Provider Student in an Organized Health Care Education/Training Program; Visit Provider Student in an Organized Health Care Education/Training Program | DX: E11.621 Type 2 diabetes mellitus with foot ulcer (principal) | CPT/HCPCS: 87070; 87075; 87077; 87186; 87205 ==

== ENCOUNTER → 2025-08-30 | Outpatient (CLI) | payer MEDICARE, SELFPAY | END | disposition home or self-care (01) | LOC: SWHD 14:21 | PROVIDERS: PCP Physician Assistant; Referring Provider Physician Assistant; Visit Provider Student in an Organized Health Care Education/Training Program | DX: T81.89XD Other complications of procedures, not elsewhere classified, subsequent encounter (principal); S98.111D Complete traumatic amputation of right great toe, subsequent encounter; X58.XXXD Exposure to other specified factors, subsequent encounter; L97.512 Non-pressure chronic ulcer of other part of right foot with fat layer exposed; E11.69 Type 2 diabetes mellitus with other specified complication; Z79.4 Long term (current) use of insulin; Z79.84 Long term (current) use of oral hypoglycemic drugs; R56.9 Unspecified convulsions; Z87.891 Personal history of nicotine dependence | CPT/HCPCS: 11042; A9270 ==

== ENCOUNTER → 2025-09-06 | Outpatient (CLI) | payer MEDICARE, SELFPAY | END | disposition home or self-care (01) | LOC: SWHD 14:31 | PROVIDERS: PCP Physician Assistant; Referring Provider Physician Assistant; Visit Provider Student in an Organized Health Care Education/Training Program | DX: T81.89XD Other complications of procedures, not elsewhere classified, subsequent encounter (principal); S98.111D Complete traumatic amputation of right great toe, subsequent encounter; X58.XXXD Exposure to other specified factors, subsequent encounter; L97.512 Non-pressure chronic ulcer of other part of right foot with fat layer exposed; E11.69 Type 2 diabetes mellitus with other specified complication; Z79.84 Long term (current) use of oral hypoglycemic drugs; Z79.4 Long term (current) use of insulin; R56.9 Unspecified convulsions; Z87.891 Personal history of nicotine dependence | CPT/HCPCS: 11042; A9270 ==

== ENCOUNTER → 2025-09-12 | Outpatient (CLI) | payer MEDICARE, SELFPAY | END | disposition home or self-care (01) | LOC: SWHD 14:18 | PROVIDERS: PCP Physician Assistant; Referring Provider Physician Assistant; Visit Provider Student in an Organized Health Care Education/Training Program | DX: T81.89XD Other complications of procedures, not elsewhere classified, subsequent encounter (principal); S98.111D Complete traumatic amputation of right great toe, subsequent encounter; X58.XXXD Exposure to other specified factors, subsequent encounter; E11.69 Type 2 diabetes mellitus with other specified complication; Z79.84 Long term (current) use of oral hypoglycemic drugs; Z79.4 Long term (current) use of insulin; R56.9 Unspecified convulsions; Z87.891 Personal history of nicotine dependence | CPT/HCPCS: 11042; A9270 ==

== ENCOUNTER → 2025-09-27 | Outpatient (CLI) | payer MEDICARE, SELFPAY | END | disposition home or self-care (01) | LOC: SWHD 12:37 | PROVIDERS: PCP Physician Assistant; Referring Provider Physician Assistant; Visit Provider Student in an Organized Health Care Education/Training Program | DX: T81.89XD Other complications of procedures, not elsewhere classified, subsequent encounter (principal); S98.111D Complete traumatic amputation of right great toe, subsequent encounter; X58.XXXD Exposure to other specified factors, subsequent encounter; E11.69 Type 2 diabetes mellitus with other specified complication; Z79.84 Long term (current) use of oral hypoglycemic drugs; Z79.4 Long term (current) use of insulin; R56.9 Unspecified convulsions; Z87.891 Personal history of nicotine dependence | CPT/HCPCS: 97597; A9270 ==

== ENCOUNTER → 2025-10-11 | Outpatient (CLI) | payer MEDICARE, SELFPAY | END | disposition home or self-care (01) | LOC: SWHD 10:14 | PROVIDERS: PCP Physician Assistant; Referring Provider Physician Assistant; Visit Provider Student in an Organized Health Care Education/Training Program | DX: T81.89XD Other complications of procedures, not elsewhere classified, subsequent encounter (principal); S98.111D Complete traumatic amputation of right great toe, subsequent encounter; X58.XXXD Exposure to other specified factors, subsequent encounter; E11.69 Type 2 diabetes mellitus with other specified complication; Z79.84 Long term (current) use of oral hypoglycemic drugs; Z79.4 Long term (current) use of insulin; R56.9 Unspecified convulsions; Z87.891 Personal history of nicotine dependence | CPT/HCPCS: 97597; A9270 ==

== ENCOUNTER → 2025-10-18 | Outpatient (CLI) | payer MEDICARE, SELFPAY | END | disposition home or self-care (01) | LOC: SWHD 10:21 | PROVIDERS: PCP Physician Assistant; Referring Provider Physician Assistant; Visit Provider Student in an Organized Health Care Education/Training Program | DX: T81.89XD Other complications of procedures, not elsewhere classified, subsequent encounter (principal); S98.111D Complete traumatic amputation of right great toe, subsequent encounter; X58.XXXD Exposure to other specified factors, subsequent encounter; E11.69 Type 2 diabetes mellitus with other specified complication; Z79.84 Long term (current) use of oral hypoglycemic drugs; Z79.4 Long term (current) use of insulin; R56.9 Unspecified convulsions; Z87.891 Personal history of nicotine dependence | CPT/HCPCS: 97597; A9270 ==

== ENCOUNTER → 2025-10-25 | Outpatient (CLI) | payer MEDICARE, SELFPAY | END | disposition home or self-care (01) | LOC: SWHD 10:14 | PROVIDERS: PCP Physician Assistant; Referring Provider Physician Assistant; Visit Provider Surgery | DX: T81.89XD Other complications of procedures, not elsewhere classified, subsequent encounter (principal); S98.111D Complete traumatic amputation of right great toe, subsequent encounter; X58.XXXD Exposure to other specified factors, subsequent encounter; E11.69 Type 2 diabetes mellitus with other specified complication; Z79.84 Long term (current) use of oral hypoglycemic drugs; Z79.4 Long term (current) use of insulin; R56.9 Unspecified convulsions; Z87.891 Personal history of nicotine dependence | CPT/HCPCS: 97597; A9270 ==

== ENCOUNTER → 2025-11-01 | Outpatient (CLI) | payer MEDICARE, SELFPAY | END | disposition home or self-care (01) | LOC: SWHD 10:48 | PROVIDERS: PCP Physician Assistant; Referring Provider Physician Assistant; Visit Provider Student in an Organized Health Care Education/Training Program | DX: T81.89XD Other complications of procedures, not elsewhere classified, subsequent encounter (principal); S98.111D Complete traumatic amputation of right great toe, subsequent encounter; X58.XXXD Exposure to other specified factors, subsequent encounter; L89.899 Pressure ulcer of other site, unspecified stage; E11.69 Type 2 diabetes mellitus with other specified complication; Z79.84 Long term (current) use of oral hypoglycemic drugs; Z79.4 Long term (current) use of insulin; R56.9 Unspecified convulsions; Z87.891 Personal history of nicotine dependence | CPT/HCPCS: 97597; A9270 ==